=== PATIENT | female | born 1955 | race Caucasian/White ===

== ENCOUNTER 2024-06-03 15:45 | Emergency (ER) | payer OTHER, MEDICARE, SELFPAY ==
--- NOTE | ~2024-06-03 | XR_ITS ---
EXAMINATION: XR WRIST, LEFT CLINICAL INFORMATION: pain, fall COMPARISON: None available. TECHNIQUE: PA, lateral, oblique, and scaphoid views of the left wrist. FINDINGS: There is a transverse mildly comminuted fracture of the distal radial metaphysis, with minimal impaction and mild dorsal angulation. No significant displacement. No definite intra-articular involvement. There is a patellar styloid avulsion fracture which is minimally displaced. Carpal bones appear intact. There is dorsal tilt of the lunate incidentally noted. 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 There is soft tissue swelling about the wrist. XR/XR wrist LT w scaphoid IMPRESSION: 1. Transverse mildly comminuted fracture distal radial metaphysis, with minimal impaction and mild dorsal angulation. 2. Ulnar styloid avulsion fracture. Electronically signed by: Michael Fisher MD 06/03/2024 04:19 PM EDT
--- NOTE | ~2024-06-03 | XR_ITS ---
CLINICAL HISTORY: post reduction Three views of the left wrist. COMPARISON: XR left wrist dated 06/03/24 at 16:01 EDT FINDINGS: Interval placement of the left wrist in a cast. This obscures fine osseous details. Mildly-comminuted fracture of the distal left radial metaphysis. There is improved near anatomic alignment. No intra-articular extension identified. Nondisplaced ulnar styloid process fracture, stable. Carpal bones appear intact. D [id number] degenerative changes of the 1st CMC joint. Metacarpals and visualized portions of the phalanges appear intact. IMPRESSION: 1. Improved near anatomic alignment of mildly-comminuted fracture of the distal left radial metaphysis, now in cast. 2. Stable alignment of nondisplaced ulnar styloid process fracture. This document has been electronically signed by: Alex Adams MD on 06/03/2024 18:55:15
[2024-06-03 15:47] VITALS: BP 144/79; PULSE 86; RESP 20; TEMP 37.2; O2SAT 99; BMI 34.6
--- NOTE | 2024-06-03 15:48 | ED_ITS ---
HPI - Extremity Injury (Upper) General Chief Complaint: Extremity Injury, Upper Stated Complaint: L wrist injury, fall today Time Seen by Provider: 06/03/24 16:40 Source: patient Mode of arrival: ambulatory Limitations: no limitations History of Present Illness ED Provider: Ashanti Olmedo PA-C HPI narrative: Patient is a 69 year old assigned female at with a history of left hand dominance presenting to the emergency department today with left wrist pain. Patient states that she was working in her yard when she tripped and fell, catching herself with her left hand. Patient denies any loss of consciousness or head strike with the incident. Patient denies any dizziness, lightheadedness, abdominal pain, nausea, vomiting, fever, chills, blurry vision, double vision, loss of vision, chest pain, difficulty breathing, shortness of breath, back pain, night sweats, pain with urination, increased urinary frequency, increased urinary urgency, blood in her urine or stool, syncope or a near syncopal episode, bowel incontinence, bladder incontinence, or any other complaints at this time. MD complaint: injury to: left and wrist Onset (ago): hour(s) (1.5 prior to arrival) Handedness: left Place: home Context: fall Associated symptoms: denies other symptoms Related Data Allergies Allergy/AdvReac Type Severity Reaction Status Date / Time gluten Allergy Mild Diarrhea Verified 06/03/24 15:50 Review of Systems Constitutional: Constitutional: Reports no additional constitutional complaints, Denies chills, Denies fever(s) and Denies night sweats Eyes: Eyes: Reports no additional eye complaints, Denies blurry vision, Denies change in vision, Denies diplopia, Denies eye discharge, Denies loss of vision and Denies eye pain ENT: Denies dizziness Cardiovascular: Cardiovascular: Reports no additional cardiovascular complaints, Denies chest pain, Denies lightheadedness, Denies Loss of Consciousness and Denies dyspnea Respiratory: Respiratory: Reports no additional respiratory complaints and Denies dyspnea Gastrointestinal: Gastrointestinal: Reports no additional gastrointestinal complaints, Denies abdominal pain, Denies melena, Denies hematochezia, Denies change in bowel habits and Denies change in stool character Genitourinary: Genitourinary: Denies hematuria, Denies urinary frequency, Denies dysuria, Denies urinary incontinence, Denies urinary hesitancy and Denies urinary urgency Musculoskeletal: Musculoskeletal: Reports no additional musculoskeletal complaints, Denies numbness and Denies tingling Comments: left wrist pain Neurologic: Denies dizziness, Denies loss of vision, Denies numbness and Denies tingling Psychiatric: Psychiatric: Reports no additional psychiatric complaints Endocrine: Endocrine: Reports no additional endocrine complaints Hematologic/Lymphatic: Hematologic/Lymphatic: Reports no additional hematologic/lymphatic complaints Allergic/Immunologic: Allergic/Immunologic: Reports no additional allergic/immunologic complaints PMFSH Past Medical History Attestation statement: The following information was validated with the patient. Source: old records reviewed and nursing notes reviewed Social History Social History Alcohol intake: current Alcohol intake frequency: holidays/special occasions only Smoked in Last 30 Days: No Use of substances other than those prescribed or required for medical reasons: No Advance Directives: No Advance Directives Information Provided: Yes Physical Exam Vital Signs: Vital Signs: Last Vital Signs Temp 0 F L 06/03/24 18:44 Pulse 86 06/03/24 18:44 Resp 16 06/03/24 18:44 BP 147/89 H 06/03/24 18:44 Pulse Ox 99 06/03/24 18:44 O2 Del Method Room Air 06/03/24 18:44 BMI result Body Mass Index 34.6 Const: General: cooperative, no acute distress, alert and awake Nutritional Appearance: well nourished Orientation/consciousness: patient oriented x3 Limitations: no limitations HEENT: Head: Yes normal to inspection and Yes atraumatic Ears: hearing grossly normal bilaterally and external ears normal General nose exam: Normal external nose present, no nasal discharge noted and no epistaxis Face and sinus: Yes normal facial exam, No abrasion and No laceration Mouth: Normal oral and palatal mucosa present, no drooling and no muffled voice Eyes: General: appearance normal, both eyes and all related structures Periorbital: periorbital findings normal Eyelids: Yes eyelids normal Conjunctivae: conjunctivae normal Pupils: Equal, round and reactive pupils present EOM: EOMs intact bilaterally Neck: Neck: Yes normal visual inspection, Yes full ROM and Yes no lymphadenopathy Chest: Chest palpation & inspection: normal inspection of the chest Resp: Effort & Inspection: normal respiratory effort and able to speak in complete sentences GI: Inspection: Yes normal to inspection Neuro: General: patient oriented x3, moves all extremities and CN's II-XI intact bilaterally Cranial nerves: Yes Equal, round and reactive pupils present Cognition (Neuro): normal cognition Extrem: Other: decreased ROM of the left wrist secondary to pain obvious volar deformity of the left wrist General: Yes capillary refill normal Psych: Appearance: grossly normal Mental Status: mental status grossly normal Affect: normal affect Attitude: cooperative Thought process: Normal thought process present Thought content: Normal thought content present Insight: Good insight present (Psych) Course Course Course Narrative: This is an RME performed by Derrick Aguilera CNP: Additional HPI, ROS, PE not included below will be deferred to primary provider. Patient is a 6-year-old emergency department for evaluation after mechanical trip and fall resulting impact to the left arm, subsequently pain to the left wrist which she applied a home Velcro brace to. has continuous pain despite ice, Tylenol. Denies any head strike or loss of consciousness, no use of anticoagulants or known coagulation disorders. No focal neurological deficits. Right wrist with obvious deformity, 1+ radial pulse Plan: XR wrist Medical Decision Making Medical Decision Making MDM Narrative: Patient is a 69 year old assigned female at with a history of left hand dominance presenting to the emergency department today with left wrist pain. Patient's physical exam was as noted in the physical exam portion of this note. Patient's left wrist x-ray showed a transverse mildly comminuted fracture of the distal radial metaphysis with minimal impaction and mild dorsal angulation as we ll as an ulnar styloid fracture. I spoke with the orthopedic team who recommended reduction, splint, and outpatient follow up. I explained my physical exam findings as well as all test results to the patient. I answered all questions asked by the patient. Patient's wrist was reduced with manual manipulation during splinting, without incident. Patient tolerated well and the patient's PMS of the left upper extremity, including hand, was intact prior to and after reduction as well as sugar tong splint placement. Patient's splinting left upper extremity was then placed in a sling, without incident. Patient's post-reduction film confirmed successful anatomic reduction. I stressed the importance of the patient taking her medication as directed (either prescribed or as the over the counter packaging recommends). I stressed the importance of the patient following up with her primary care provider and the orthopedic team. I stressed the importance of the patient returning to the emergency department immediately if her symptoms were to worsen or if she were to develop any dizziness, shortness of breath, difficulty breathing, chest pain, blurry vision, loss of vision, nausea, vomiting, abdominal pain, fever, chills, back pain, or any other complaints. Patient verbalized agreement and understanding with this treatment plan and discharge. Differential Diagnosis Differential Diagnoses: The differential diagnosis associated with the presentation includes Wrist fracture Admission/Observation Consideration of admission/observation: Escalation of care including admission/observation considered Patient would have been admitted to the hospital had her work up had any findings where hospital admission was appropriate and her clinical presentation warranted hospital admission. Consult Healthcare Provider Management of the patient was discussed with: [employer]ter (spoke with the orthopedic team as noted in the MDM Rationale portion of this note. ) Independent Interpretation I performed an independent interpretation of an: Plain X-Ray Interpretation: My interpretation is in agreement with the radiologist's impression of these imaging studies. EXAMINATION: XR WRIST, LEFT CLINICAL INFORMATION: pain, fall COMPARISON: None available. TECHNIQUE: PA, lateral, oblique, and scaphoid views of the left wrist. FINDINGS: There is a transverse mildly comminuted fracture of the distal radial metaphysis, with minimal impaction and mild dorsal angulation. No significant displacement. No definite intra-articular involvement. There is a patellar styloid avulsion fracture which is minimally displaced. Carpal bones appear intact. There is dorsal tilt of the lunate incidentally noted. 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 There is soft tissue swelling about the wrist. XR/XR wrist LT w scaphoid IMPRESSION: 1. Transverse mildly comminuted fracture distal radial metaphysis, with minimal impaction and mild dorsal angulation. 2. Ulnar styloid avulsion fracture. Electronically signed by: Michael Fisher MD 06/03/2024 04:19 PM EDT Dictated By: Michael Fisher MD Signed By: Electronically signed by Michael Fisher MD 06/03/24 1619 CLINICAL HISTORY: post reduction Three views of the left wrist. COMPARISON: XR left wrist dated 06/03/24 at 16:01 EDT FINDINGS: Interval placement of the left wrist in a cast. This obscures fine osseous details. Mildly-comminuted fracture of the distal left radial metaphysis. There is improved near anatomic alignment. No intra-articular extension identified. Nondisplaced ulnar styloid process fracture, stable. Carpal bones appear intact. D [id number] degenerative changes of the 1st CMC joint. Metacarpals and visualized portions of the phalanges appear intact. IMPRESSION: 1. Improved near anatomic alignment of mildly-comminuted fracture of the distal left radial metaphysis, now in cast. 2. Stable alignment of nondisplaced ulnar styloid process fracture. This document has been electronically signed by: Alex Adams MD on 06/03/2024 18:55:15 Dictated By: Alex Adams MD Signed By: Electronically signed by Alex Adams MD 06/03/24 0466 Radiology Impression Discussion of test interpretation with radiology: I have reviewed the radiologist's reading. Procedures Orthopedic Fracture Reduction Fracture #1: Time Out Performed: Yes Side: left Analgesia: none Technique: direct manipulation Post Reduction X-rays Demonstrate: anatomical reduction Post-reduction neuro exam: intact Post-reduction vascular exam: intact Splint Applied: Yes Patient Tolerated Procedure: well Orthopedic Splinting/Casting Injury #1: Side: left Upper Extremity Injury Location: wrist Upper Extremity Immobilizer: sling/shoulder immobilizer and sugar tong splint Critical Care Time Critical Care Time Critical Care Time: Yes Total Critical Care Time: 48 Attestation: I spent 48 minutes of Critical Care Time with this patient. This does not include time spent on separately reported billable procedures. Discharge Plan Discharge Clinical Impression: Fracture of wrist Patient Disposition: Home, Self-Care Instructions: Wrist Fracture in Adults (ED) Additional Instructions: Do NOT get your splint wet. Do NOT remove your splint. If you have any change in sensation, movement, or color of your left fingers - you may loosen the outer FAROOQ wraps. If you find yourself loosening the FAROOQ wraps to the point of seeing the white splint material underneath - STOP and proceed to your closest Emergency Department, immediately. Follow up with your primary care provider and the orthopedic team. Return to the emergency department immediately if your symptoms worsen or if you develop any numbness, tingling, dizziness, shortness of breath, difficulty breathing, chest pain, blurry vision, loss of vision, nausea, vomiting, abdominal pain, fever, chills, back pain, or any other complaints. Please see the information below about our Patient Portal. If you are not yet enrolled in the [facility] Patient Portal, you will receive an enrollment email invitation following your visit to any [facility] setting. You may also self-enroll in the Patient Portal by visiting our website: [email or web address] The following information is required to access the Patient Portal: - Your [facility] Medical Record Number - Your personal home email address (must match what is in your electronic medical record, Registration staff can assist with this) - Name - Date of Capabilities of the Patient Portal: - Message some providers - View upcoming appointments - Access your health summary, medical history, and visit history - View current conditions and allergies - View procedure and lab results - View your medications, including guidelines, side effects, and precautions - Complete pre-appointment questionnaires requested by your provider - Ready summary reports of your office visits and procedures To access the Patient Portal Mobile Amanda, follow these directions: - Search [employer] in the Amanda Store or Google Play Store - Download the Amanda - Search for [facility] - Enter your login/password Referrals: [facility] Orthopedic Surgeons [Provider Group] (Call to establish and follow up with an orthopedic provider. ) Arianne Franco MD [Primary Care Provider] - Interventions: ED Discharge Assessment Last Done: 06/03/24 18:44 Discharge Date/Time: 06/03/24 18:45 Print Language: Portuguese
[2024-06-03 16:18] VITALS: BP 139/67; PULSE 82; RESP 16; TEMP 37; O2SAT 96
[2024-06-03 18:21] VITALS: BP 147/89; PULSE 86; RESP 16; O2SAT 99
[2024-06-03 18:44] VITALS: BP 147/89; PULSE 86; RESP 16; TEMP -17.7; TEMP 0; O2SAT 99
== END 2024-06-03 18:45 | disposition home or self-care (01) ==
PROVIDERS: Emergency Provider Emergency Medicine Emergency Medical Services; PCP Internal Medicine
DX: S52.502A Unspecified fracture of the lower end of left radius, initial encounter for closed fracture (principal); M25.532 Pain in left wrist; W01.0XXA Fall on same level from slipping, tripping and stumbling without subsequent striking against object, initial encounter; Y93.9 Activity, unspecified; Y92.007 Garden or yard of unspecified non-institutional (private) residence as the place of occurrence of the external cause; Y99.8 Other external cause status
CPT/HCPCS: 25605; 29125; 73110; 99283; 99284

== ENCOUNTER → 2024-06-03 15:49 | Outpatient (BNV) | payer OTHER, MEDICARE, SELFPAY | PROVIDERS: Emergency Provider Emergency Medicine Emergency Medical Services; PCP Internal Medicine; Visit Provider Radiology Diagnostic Radiology | DX: S52.612A Displaced fracture of left ulna styloid process, initial encounter for closed fracture (principal) | CPT/HCPCS: 73110 ==

== ENCOUNTER 2024-06-08 09:08 | Outpatient (REF) | payer MEDICARE, OTHER, SELFPAY ==
--- NOTE | ~2024-06-08 | XR_ITS ---
EXAMINATION: XR WRIST 3 OR MORE VIEWS LEFT HISTORY: M25.532 - Pain in left wrist COMPARISON: Comparison is made with the prior examination dated 06/03/2024. FINDINGS: Three casted views of the left wrist are submitted. The fiberglass cast obscures fine bony detail. Again seen is a transverse fracture of the distal radial metaphysis. The fracture line remains visible, although there is slight blurring of the fracture margins, consistent with healing. There is moderate osteoarthritis of the 1st carpometacarpal joint, with joint space narrowing and osteophyte formation. The soft tissues are unremarkable. XR/XR wrist LT min 3V IMPRESSION: Healing transverse fracture of the distal radial metaphysis. Electronically signed by: Mark Metz MD 06/09/2024 07:49 AM EDT
== END 2024-06-08 09:09 | disposition home or self-care (01) ==
LOC: HO.HOSX 09:08
PROVIDERS: Visit Provider Orthopaedic Surgery
DX: S52.502A Unspecified fracture of the lower end of left radius, initial encounter for closed fracture (principal); S52.615A Nondisplaced fracture of left ulna styloid process, initial encounter for closed fracture; W01.0XXA Fall on same level from slipping, tripping and stumbling without subsequent striking against object, initial encounter; Y93.89 Activity, other specified; Y92.007 Garden or yard of unspecified non-institutional (private) residence as the place of occurrence of the external cause; Y99.8 Other external cause status
CPT/HCPCS: 73110; 99202

== ENCOUNTER 2024-06-08 10:00 | Outpatient (AMB) | payer MEDICARE, OTHER, SELFPAY ==
--- NOTE | 2024-06-08 10:19 | MHC.OFFVIS ---
Vital Signs 06/08/24 10:25 Height 5 ft 5 in Weight 207 lb BMI 34.4 Intake Visit Reasons: FC- Left wrist fracture DOI 06/03/24 Intake Note: Kelly 69 yr old left hand dominant female present today with her Jonathan for her left wrist fracture from 06/03/24. Patient states that she was working in her yard when she tripped and fell, catching herself with her left hand. State she felt immediate pain. Seen in [facility] same day where xrays were taken, patient was reduced and then splinted due to wrist fracture. Currently state has no pain, numbness, tingling or locking of any fingers. Allergies gluten Allergy (Mild, Verified 06/08/24 10:23) Diarrhea HPI HPI FC- Left wrist fracture DOI 06/03/24: Details: Kelly is a 69 year old left hand dominant woman who presents for a left wrist fracture, S/P fall, DOI: 06/03/24. She fell while working in her yard. She was seen in the ED where her fracture was reduced and she was placed in a splint the same day. She is here with her . She says she is doing well, and denies any pain. She denies any numbness or tingling. She says her is having minimally invasive spine surgery on 06/15/24. 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 Review of Systems Const All systems reviewed & are unremarkable except as noted in HPI and below Physical Exam Vital Signs: BMI result Body Mass Index 34.4 Const General: cooperative, healthy appearing and no acute distress Orientation/consciousness: patient oriented x3 HEENT Head: Yes normocephalic and Yes atraumatic Eyes EOM: EOMs intact bilaterally Resp Effort & Inspection: normal respiratory effort and able to speak in complete sentences Cardio Jugular venous distension: no JVD Skin General skin exam: turgor normal Rashes: no rashes Neuro General: patient oriented x3 Extrem Other: Evaluation of Left Upper Extremity: The patient is alert, oriented, and in no acute distress Neuro: Median, Ulnar, Radial nerves motor and sensory intact and sensation is normal to the tips of all digits Vascular: Cap refill brisk ROM: She can bring her fingers closed to a fist and back into extension Skin: She was seen wearing her post-reduction splint today General: No Erythema or evidence of infection. No pain in her sholder or elbow Radiographs: 3 views of the left wrist were taken, viewed, and compared to post-reduction radiographs from 06/03/24 by me today in clinic. They show a transverse mildly comminuted distal radial metaphysis fracture, with ~7 degrees dorsal tilt on the lateral view, as well as an ulnar styloid fracture, with satisfactory fracture alignment. She has some basal joint arthritis Psych Appearance: grossly normal Affect: normal affect Attitude: cooperative Assessment & Plan Assessment & Plan (1) Distal radius fracture, left: Code(s): S52.502A - Unspecified fracture of the lower end of left radius, initial encounter for closed fracture Category: Medical (2) Closed nondisplaced fracture of styloid process of left ulna: Code(s): S52.615A - Nondisplaced fracture of left ulna styloid process, initial encounter for closed fracture Category: Medical Plan Assessment & Plan: 1. Left distal radius fracture, transverse comminuted 2. Left ulnar styloid fracture, S/P fall, DOI: 06/03/24 Reduced in the ED: 06/03/24 I educated her and her about this condition I discussed operative and non-operative treatment options The patient would like to proceed with surgery She should keep her wrist elevated at or above heart level when at rest The risks and benefits of operative treatment were discussed with the patient and the patient wishes to proceed with surgery. These risks include, but are not limited to risk of damage to blood vessels, nerves, tendons, infection, recurrence, incomplete relief of preoperative symptoms, persistent pain, possible need for further surgery and the risks associated with regional blocks and anesthesia. The plan is to take the patient to the operating room sometime on 06/09/24 for the following procedures: 1. Left distal radius ORIF, under general All of the preoperative paperwork including the consent was reviewed today. All the patient's questions were answered. The patient understands that they will be contacted by our operations support representative soon to schedule this procedure She denies Diabetes, blood thinners, asthma, heart, lung, kidney issues Scribed for Pati Brito MD by Tj Boo, medical technicians, on 06/08/24 at 10:35 AM, EST. Orders: Orders XR wrist LT min 3V Today M25.532 - Pain in left wrist Coding Level of Care Code New Pt Level 4 (27268) Diagnoses Distal radius fracture, left S52.502A Closed nondisplaced fracture of styloid process of left ulna S52.615A
[2024-06-08 10:25] VITALS: BMI 34.4
== END 2024-06-08 11:03 | disposition home or self-care (01) ==
LOC: HO.HOS 10:00
PROVIDERS: PCP Internal Medicine; Visit Provider Orthopaedic Surgery
DX: S52.502A Unspecified fracture of the lower end of left radius, initial encounter for closed fracture (principal); S52.615A Nondisplaced fracture of left ulna styloid process, initial encounter for closed fracture
CPT/HCPCS: 99204

== ENCOUNTER → 2024-06-08 10:02 | Outpatient (BNV) | payer OTHER, MEDICARE, SELFPAY | PROVIDERS: Visit Provider Radiology Diagnostic Radiology | DX: S52.502D Unspecified fracture of the lower end of left radius, subsequent encounter for closed fracture with routine healing (principal) | CPT/HCPCS: 73110 ==

== ENCOUNTER 2024-06-09 06:02 | Day surgery (SDC) | payer MEDICARE, OTHER, SELFPAY ==
--- OUTSIDE RECORDS SUMMARY | 2024-06-07 12:21 | XMS_ITS | Data Portability ---
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 Pt consented to procedure to remove polyp. BSE reviewed and recommended . Reviewed calcium needs, exercise, and prevention of osteoporosis . Periodic colonoscopy screening recommended . Reviewed normal menopause and menopausal symptoms . Mammogram recommended yearly . ctallon Not available 09/20/2013 07:57:36 10/27/2014 10/27/2014 She will try Astroglide, vibrator and dilators to help with sexual issues. She will have a DEXA with primary. Discussed current pap guidelines had pap and HPV 1 year ago that was normal. Reviewed normal menopause and menopausal symptoms. Reviewed cervical cancer screening recommendations appropriate for her age and Pap smear history. Reviewed calcium needs, exercise, and prevention of osteoporosis. Mammogram recommended yearly. Colonoscopy recommended every 10 years, or sooner if indicated based on her history. ctallon Not available 10/27/2014 16:06:45 11/06/2015 11/06/2015 Discussed curren t pap guidelines she will have pap testing in 1 year. She will have DEXA this year. Reviewed normal menopause and menopausal symptoms. Reviewed cervical cancer screening recommendations appropriate for her age and Pap smear history. Reviewed calcium needs, exercise, and prevention of osteoporosis. Mammogram recommended yearly. Colonoscopy recommended every 10 years, or sooner if indicated based on her history. ctallon Not available 11/06/2015 14:09:16 Plan of Treatment Reminders Order Date Submit Date Provider Last Modified By Organization Details Last Modified Time Details Appointments None recorded. Lab HPV DNA w/Pap 30yrs and older 2013 014 [facility] (Lab), [address] [place] [address], [address], 4 12:36:49 Pap smear 2013 014 [facility] (Lab), [address] [place] [address], [address], 4 12:29:48 pathology, surgical - cervical polyp 2013 014 [facility] (Lab), [address] [place] [address], [address], 4 17:36:15 Referral None recorded. Procedures None recorded. Surgeries None recorded. Imaging ultrasound, pelvic transvagina l - please check ovaries and endometrial lining cx polyp 2013 014 [facility] Not available 4 11:21:38 Medication Orders None recorded. Patient TargetsNo targets recorded. Patient InstructionsNo instructions recorded. Reason for Referral None Reported. 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 [place] [address] PAGE 1 RUN TIME: 1743 Speci men Inqui ry RUN USER: LINO PEÑA ----- ----- ----- ----- ----- ----- ----- ----- ----- ----- ----- ----- ----- ----- ----- ----- ----- ----- -- PATIE NT: YAIMA DUKE W 961 LOC: [facility] U #: [id number] AGE/S X: 58/F ROOM: RE09/[address]: Siomara Shell N.P. : 03/09 BED: DIS: STATU S: REG REF TLOC: ----- ----- ----- ----- ----- ----- ----- ----- ----- ----- ----- ----- ----- ----- ----- ----- ----- ----- -- SPEC #: [id number] RECD: 09/19-2 223 STATU S: SOUT REQ #: [id number] NASRA: 09/19- SUBM DR: Siomara Shell N.P. 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 CERVI X/END OCERV IX THOM jones #1 Enter ed: 09/26-1 621 THOM JONES TO REPOR T: HPV mRNA E6/E7 : NEGAT OMID (Not detec anneliese) This assay detec ts E6/E7 viral messe nger RNA (mRNA ) from 14 high- risk HPV types : (16,1 8,31, 33,35 ,39,4 5,51, 52,56 ,58,5 9,66, 68) This test was perfo rmed using the Aptim a HPV Assay ([employer]). Thom JORDAN CT( CP),G 09/27 5647 ----- ----- ----- ----- ----- ----- ----- ----- ----- ----- ----- ----- ----- ----- ----- ----- ----- ----- -- FINAL DIAGN OSIS NEGAT OMID FOR INTRA EPITH ELIAL LESIO N OR MALIG AMENA . Atrop hic quintana es prese nt. HPV DNA testi ng for high risk subty pes will be perfo rmed at the [facility] order jeferson sims and the resul t will be repor anneliese in an adden dum. Khurram Mott, CT( CP) Repor t Elect precious jason This Pap test was scree enrique using the compu teriz ed ThinP rep Imagi ng Syste m, then yolanda bowers and inter pretlencho d. JOBY JEAN PIERRE ON NEXT PAGE ----- ----- ----- ----- ----- ----- ----- ----- ----- ----- ----- ----- ----- ----- ----- ----- ----- ----- -- RUN DATE: 09/27 [place] [address] PAGE 2 RUN TIME: 1743 Speci kerline capone RUN USER: LINO PEÑA ----- ----- ----- ----- ----- ----- ----- ----- ----- ----- ----- ----- ----- ----- ----- ----- ----- ----- -- SPEC #: [id number] PATIE NT: YAIMA DUKE #[id number] (Cont inued ) ----- ----- ----- ----- ----- ----- ----- ----- ----- ----- ----- ----- ----- ----- ----- ----- ----- ----- -- CLINI GONZALO HISTO RY MENST RUAL STATU S : POST MENOP AUSAL PREVI OUS ABNOR MAL: NOT GIVEN CLINI GONZALO HISTO RY OTHER : HPV TESTI NG IF NEGAT OMID NAE PAP QUEST BETHE SDA ADEQU ACY:S ATISF ACTOR Y FOR INTER PRETA TION TRANS FORMA TION ZONE: Endoc vinay al/edie ansfo rmati on zone compo nent absen t ----- ----- ----- ----- ----- ----- ----- ----- ----- ----- ----- ----- ----- ----- ----- ----- ----- ----- -- Di ESPINOSA- DO ARACELY ANDERSEN 09/22 1227 ----- ----- ----- ----- ----- ----- ----- ----- ----- ----- ----- ----- ----- ----- ----- ----- ----- ----- -- END OF REPOR T Not Available [facility] [address], [place], [address], 09/27/2013 17:44:04 09/20/1909/19/2013 patho logy, surgi gonzalo surgical specimens See Satish ts ----- ----- ----- ----- ----- ----- ----- ----- ----- ----- ----- ----- ----- ----- ----- ----- ----- ----- -- RUN DATE: 09/23 [place] [address] PAGE 1 RUN TIME: 1735 Speci men Inqui ry RUN USER: MEDIT ECH ----- ----- ----- ----- ----- ----- ----- ----- ----- ----- ----- ----- ----- ----- ----- ----- ----- ----- -- PATIE NT: YAIMA DUKE W 961 LOC: [facility] U #: [id number] AGE/S X: 58/F ROOM: RE09/[address]: Siomara Shell N.P. : 03/09 BED: DIS: STATU S: REG REF TLOC: ----- ----- ----- ----- ----- ----- ----- ----- ----- ----- ----- ----- ----- ----- ----- ----- ----- ----- -- SPEC #: [id number] RECD: 09/19-2 211 STATU S: SOUT REQ #: [id number] NASRA: 09/19- SUBM DR: Siomara Shell N.P. ED: 09/19-2 212 SP TYPE: SURG OTHR DR: ORDER ED: H&E, NAE EXPED ITE, [facility] RECUT BLOCK , RECUT LEVEL S/3, GMUSM , GROSS ONLY (1) TISSU ES: 1. Cervi gonzalo - CERVI GONZALO POLYP FINAL DIAGN OSIS CERVI X, POLYP , BIOPS Y: - NON-D IAGNO STIC, SEE NOTE. NOTE: THE SPECI MEN DID NOT SURVI VE PROCE SSING . MUCIN OUS MATER IAL LESS THAN 0.1 CM WAS RECEI SILVINA. AN ATTEM PT WAS MADE TO PROCE SS THE SMALL FRAGM ENT OF MUCIN OUS MATER IAL; HOWEV ER, ON MICRO SCOPI C EVALU ATION NO TISSU E IS PRESE NT. LEVEL S WERE EXAMI ENRIQUE. PAIGE Arndt M.D. GROSS DESCR IPTIO N PREOP ERATI VE DIAGN OSIS: Mucus polyp of cervi x CLINI GONZALO HISTO RY: OPERA TION: SPECI MENS: Cervi gonzalo polyp POSTO PERAT OMID DIAGN OSIS: Recei silvina in forma luis fernando label ed cerv ical polyp is a large , friab le paper towel conta ining less than 0.1 x less than 0.1 x less than 0.[address] [place]-w nikos, trans lucen t soft tissu e fragm ents. Total ly submi tted in casse tte 1-1. The speci men may not survi ve proce ssing . JDB 2013 HISTO LOGY: TISSU E ID BLK PCS MARCELLE LEV PROCE DURE DISPO SITIO N ____ _ ___ ___ ___ _ Cervi gonzalo 1 1 1 ----- ----- ----- ----- ----- ----- ----- ----- ----- ----- ----- ----- ----- ----- ----- ----- ----- ----- -- SA RA Darshana Hammonds MD 09/23 1732 ----- ----- ----- ----- ----- ----- ----- ----- ----- ----- ----- ----- ----- ----- ----- ----- ----- ----- -- END OF REPOR T Not Available [facility] [address], [place], [address], 09/23/2013 17:36:13 09/20/19 14 09/26/2013 HPV DNA w/Pap 30yrs and older HPV 30 neg NEGATI VE negati ve normal HPV mRNA E6/E7 : NEGAT OMID (Not detec anneliese) This assay detec ts E6/E7 viral messe nger RNA (mRNA ) from 14 high- risk HPV types : (16,1 8,31, 33,35 ,39,4 5,51, 52,56 ,58,5 9,66, 68) This test was perfo rmed using the Aptim a HPV Assay ([employer]). Not Available [facility] [address], [place], [address], 09/26/2013 12:36:48 10/06/19 14 10/05/2013 ultra sound , pelvi c trans vagin al No observ ation record ed. [facility] [address], [place], [address], 10/27/2014 16:06:45 02/06/20 16 02/06/2016 DEXA, axial skele ton Henry white Name: RAIMUNDO DUKE Exam Date/T rosita: 1036 ------ ------ ------ ------ ------ ------ ------ ------ ------ ------ ------ ------ ------ -- Exam Number : [id number] RESPON KIERRA KAYE RETER: Marci Bailey M.D. - RIS ID: [id number] EXAMIN ATION: BONE DENSIT Y CENTRA L CLINIC AL INDICA TION: Osteop enia. Postme nopaus al female . TECHNI QUE: [employer] Energy X-Ray Absorp tiomet ry (DEXA techni que) was perfor med with measur ements of the lumbar spine and right hip. GENERA L INFORM ATION FOR BONE DENSIT OMETRY : BMD Report ing in Postme nopaus al Women and in Males age 50 and Older: The Z-scor e refers to standa rd deviat ions with refere nce to the age-ma tched mean. The T-scor e refers to standa rd deviat ions with refere nce to mean young adult (white female s age 20-29) peak bone mass. The World Health Organi zation (WHO) has define d low bone mass or osteop enia as betwee n 1-2.5 standa rd deviat ions below mean young adult peak bone mass (T-sco re) and osteop orosis as 2.5 or more standa rd deviat ions below that mean. BMD Report ing in Female s prior to menopa use and in Males Younge r then age 50: The Z-scor e is prefer red. A Z-scor e of -2.0 or lower is define d as below the expect ed range for age and a Z-scor e above -2.0 is withi n the expect ed range for age . COMPAR KRISTEN: 2011 FINDIN GS: L-Spin e: T-scor e -2.0 Z-scor e -0.5 This repres ents a 2.1% deteri oratio n Right Femora l Neck: BMD 0.672 g/cm T-scor e -1.6 Z-scor e -0.2 Right Hip: T-scor e -1.0 Z-scor e 0.1 This repres ents a 6.6% deteri oratio n IMPRES MICHAEL: Based on the WHO defini tion above, there is osteop enia of the lumbar spine and right hip. (See separa tely mailed data sheets ). Dictat ed: 2015 4:31 PM Report ID: [id number] Report ed By: MARCI BAILEY M.D. Yes [facility] (Radiology) [address], [place], [address], 02/14/2016 14:07:44 02/07/20 16 02/06/2016 bone densi ty No observ ation record ed. [facility] (Radiology) [address], [place], [address], 02/14/2016 14:07:44 Result Notes None recorded. Problems Name Problem SNOMED Code Status Onset Date Resolution Date Notes Provider Name and Address Organization Details Recorded Time Osteopenia 308472779 Active 2 doses Reclast Siomara Shaffer NP [address] [email or web address], [place], [address], [facility] 6 15:54:17 Malignant tumor of breast 861952983 Active DCIS mastectomy and Tamoxifen Siomara Shaffer NP [address] [place], [address], [facility] 6 11:54:46 Depressive disorder 97608526 Active therapist and meds Siomara Shaffer NP [address] [facility] [place], [address], [facility] 6 11:54:46 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 Procedures Surgical History Date Name Laterality Status Provider Name and Address Organization Details Recorded Time 09/20/19 14 Endocervical Polyp Removal completed Siomara Shaffer NP [address] [place], [address], [facility] 09/19/2013 15:20:39 02/23/19 05 Mastectomy completed Christine Pastrana [facility] 09/19/2013 11:41:09 12/08/19 04 Hysteroscopy ablation completed Not Available [facility] 01/07/2011 05:09:26 02/23/18 83 Section completed Christine Pastrana [facility] 09/19/2013 11:45:16 Imaging Results Imaging Date Name Status LastModified by Organization Details LastModified Time 10/05/2013 ultrasound, pelvic transvaginal completed [facility] (Imaging) [address] [place], [address], 10/27/2014 16:06:45 02/06/2016 DEXA, axial skeleton completed [facility] (Radiology) [address] [place], [address], 02/14/2016 14:07:44 02/06/2016 bone density completed [facility] (Radiology) [address] [place], [address], 02/14/2016 14:07:44 Procedure Notes None recorded. Medical Equipment None Reported. Allergies Allergen ID Allergen Name Allergen Category Reaction Reaction Severity Criticality Documentation Date Start Date Code Code System Note Provider Name and Address Organization Details Recorded Time 140227 wheat gluten extract food Not available Not available Not available 09/19/2013 31061 81 RxNorm Christinebetsy abraham [facility] 4 11:32:26 244872 Toradol medicatio n Not available Not available Not available 09/19/2013 58341 RxNorm Christine DotsonLyndon abraham [facility] 4 11:38:11 Medications Name Sig Start Date Stop Date Status Note LastModified by Organization Details LastModified Time sertraline active Not Available Not Av ailable Not Available Aleve active Not Available Not Availa ble Not Available Lipitor active Not Available Not Avail able Not Available Fish Oil active Not Available Not Avai lable Not Available lorazepam active Not Available Not Monica ilable Not Available Claritin active Not Available Not Avai lable Not Available Vitamin D active Not Available Not Monica ilable Not Available multivitamin active Not Available Not Available Not Available Baby Aspirin active Not Available Not Available Not Available B12 active Not Available Not Availa ble Not Available Vitals Date Recorded Body height Body mass index (BMI) Body weight Heart rate Systolic blood pressure Diastolic blood pressure Provider Name and Address Organization Details Last Updated DateTime 4 170.18 cm 24 kg/m2 63949.0 41100 g 73 /min 108 mm[Hg] 76 mm[Hg] Christine roy [facility] 4 11:45:54 Date Recorded Body height Body mass index (BMI) Body weight Heart rate Systolic blood pressure Diastolic blood pressure Provider Name and Address Organization Details Last Updated DateTime 5 170.18 cm 25 kg/m2 27001.9 95112 g 91 /min 121 mm[Hg] 79 mm[Hg] Christine roy [facility] 5 15:34:23 Date Recorded Body height Body weight Body mass index (BMI) Heart rate Systolic blood pressure Diastolic blood pressure Provider Name and Address Organization Details Last Updated DateTime 6 170.18 cm 40969.5 67620 g 25.1 kg/m2 76 /min 129 mm[Hg] 84 mm[Hg] Jayde Adamson [facility] 6 11:22:00 Social History Question Answer Notes LastModified by Organizat ion Details LastModified Time Tobacco Smoking Status Never Smoker Christine abraham [facility] 09/19/2013 11:33:54 What Is Your Level Of Alcohol Consumption? Occasional Information not available 09/19/2013 What Type Of Diet Are You Following? GLUTENFREE Information not available 09/19/2013 Which Illicit Or Recreational Drugs Have You Used? 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 No Information not available 09/19/2013 Exercise Yes Gym 2-3 X A Week With Weight Lifting Information not available 09/19/2013 Marital Status Informa tion not available 09/19/2013 Seat Belts Used Routinely Yes Information not available 09/19/2013 Are You Sexually Active? No Information not available 11/06/2015 Do You Have Symptoms Associated With Zika Virus (fever, Rash, Joint Pain, Or Conjunctivitis) ? No Information not available 11/06/2015 Have You Recently (within The Last 12 Weeks, Or During A Current ) Traveled To Or Lived In A Zika-affected Area? No Information not available 11/06/2015 Sex: Unknown Functional Status None recorded. Mental Status None recorded. Family History Relationship Description Onset Age of this Age Resolved Age Notes LastModified by Organization Details LastModified Time Mother Malignant tumor of breast 39 ctallon Not available 2015 14:10:25 Maternal Grandmother Malignant tumor of breast 60 ctallon Not available 2015 14:10:25 Sister Malignant tumor of breast 50 ctallon Not available 2015 14:10:25 Paternal Aunt Malignant tumor of colon ctallon Not available 2015 14:10:25 Father Leukemia (morphologic abnormality) ctallon Not available 14:10:25 Daughter Spina bifida ctallon Not avai lable 11/06/2015 14:10:25 Notes:brother is healthy Medical History Condition Response Diabetes N Other N Thyroid Disease N High Blood Pressure N Lung Disorder or Asthma N Hyperlipidemia N Cancer Y Kidney or Bladder Problems N Cardiac Disease N Anemia or Blood Disorder N GI Disorders N Neurologic Disease N None Reported N Psychiatric Disease N Osteoporosis N Thrombophilias N Gynecological History Statement/Question Response Date of Last Mammogram 10/15/2015 Date of Last Bone Density Test 2 Date of Last Colonoscopy 09/12/2014 Date of Last Pap 09/19/2013 Menopause Y Abnormal Pap None Obstetrics History GPAL:G 4 P 3 1 0 3 Type Value Full Term 3 Premature 1 Living 3 Total 4 Past Encounters Encounter ID Performer Location Encounter Start Date Encounter Closed Date Diagnosis/Indication Diagnosis SNOMED-CT Code Diagnosis ICD10 Code Diagnosis Note [id number] [address] [place] [address] 10/18/2003 11:36:17 10/18/2003 12:45:[id number] [address] [place] [address] 11/20/2003 15:25:00 11/20/2003 16:18:04 [id number] [facility] [address] [place] [address] 12/08/2003 00:00:00 03/19/2010 03:30:[id number] [address] [place] [address] 03/14/2004 07:59:30 03/14/2004 07:59:43 [id number] [facility] [address] [place] [address] 09/19/2013 11:04:09 09/19/2013 14:21:00 Gynecologic examination 55574016 Polyp of cervix 02325108 Abdominal bloating 052281058 [id number] [facility] [address] [place] [address] 10/27/2014 15:26:17 10/31/2014 08:57:55 Gynecologic examination 04654056 Screening for malignant neoplasm of rectum 329753270 Malignant tumor of breast 353077041 [id number] Siomara Shaffer NP [facility] [address] [place] [address] 11/06/2015 11:18:14 11/06/2015 14:21:59 Gynecologic examination 78448763 Z01.419 Screening for malignant neoplasm of rectum 410870710 Z12.12 Health Concerns Section Related Observation LastModified by Organization Detai ls LastModified Time None Recorded Concern Status LastModified by Organization Details LastModified Time None Recorded Advance Directives Directive None Recorded Payers Encounter Date Sequence Insurance Name Policy Number Policy Pinto Covered Member ID Pinto Member ID Guarantor Name 03/13/2004 1 [place] [id number] Jonathan Duke [id number] Kelly Duke 09/19/2013 1 [facility] Kelly Duke [id number] Kelly Duke 10/27/2014 1 [facility] Kelly Duke [id number] Kelly Duke 11/06/2015 1 [facility] Kelly Duke [id number] Kelly Lijek Notes Date Note Type Note Provider Name and Address Organization Details Recorded Time 09/19/2013 text/html 1 st visit to ou r office; 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; menopausal no bleeding or spotting occasional hot flashes; not sexually active for many years since it was uncomfortable and low libido- also has low libido; s/p mastectomy on right breast DCIS was on Tamoxifen for 5 years; no hx of abnormal pap testing; was negative BRAC ; P3 1 child spina bifida; had DEXA and had 2 RX of Reclast stopped due to TMJ 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 or 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, denies vaginal d/c or itching; - no dysuria, GI- nrm pattern and had colonoscopy; Breast - no lump or nipple d/c followed by oncology Siomara Shaffer NP [address] [place], [address], [facility] 09/20/2013 07:57:44 10/27/2014 text/html Annual HPI PMHx - no major illness, hospitalizations; Family Hx- no changes; 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 or 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, would like to try being more interested in sex; is going on antidepressants, they have not been sexually active for many years; - no dysuria, GI- nrm pattern and had negative colonoscopy this year, Breasts- no problem being followed by oncologist; had DEXA many years ago Siomara Shaffer NP [address] [place], [address], [facility] 10/27/2014 16:10:39 11/06/2015 text/html Annual HPI PMHx - having problems with TMJ; Family Hx- no changes; 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 or 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
--- NOTE | 2024-06-08 12:09 | HO.ANESPROP2 ---
Documented by User: Katheryn Martin NP 06/08/24 12:10 HPI - Anesthesia Eval Consult details Narrative: 69yo F for Left Radius Distal Fracture ORIF PMFSH Active Problems Active Problems: All Active Problems Closed nondisplaced fracture of styloid process of left ulna (Acute) Distal radius fracture, left (Acute) Past Medical History Medical History Breast cancer History of depression Elevated cholesterol Surgical History Surgical History Hx of colonoscopy H/O section H/O right mastectomy History of total left knee replacement Social History Social History Alcohol intake: current Alcohol intake frequency: holidays/special occasions only Patient Tobacco Use Status: Former Tobacco user Have you been hit, kicked, punched, or otherwise hurt by someone within the past year? 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 Meds Allergies Allergy/AdvReac Type Severity Reaction Status Date / Time gluten Allergy Mild Diarrhea Verified 06/09/24 06:37 Home Medications ?Medication ?Instructions ?Recorded ?Confirmed ?Last Taken ?Type atorvastatin 10 mg tablet 10 mg PO DAILY 06/08/24 06/09/24 06/09/24 History brimonidine 0.1 % eye drops drp ophthalmic (eye) 06/08/24 Unknown History (Alphagan P) finasteride 5 mg tablet 5 mg PO DAILY 06/08/24 Unknown History fluocinonide 0.05 % topical topical 06/08/24 Unknown History solution lorazepam 0.5 mg tablet mg PO 06/08/24 Unknown History pimecrolimus 1 % topical cream appl topical 06/08/24 Unknown History sertraline 50 mg tablet mg PO 06/08/24 06/09/24 History timolol maleate 0.5 % eye drops drp ophthalmic (eye) 06/08/24 Unknown History Assessment and Plan Assessment Anesthesia Assessment: Chart Reviewed Documented by User: Lenore Daniel MD 06/09/24 08:36 [facility] Past Medical History Medical History Breast cancer History of depression Elevated cholesterol Family History Family history of problems with anesthesia: No Surgical History Surgical History Hx of colonoscopy H/O section H/O right mastectomy History of total left knee replacement History of Problems with Anesthesia: No Social History Social History Alcohol intake: current Alcohol intake frequency: holidays/special occasions only Patient Tobacco Use Status: Former Tobacco user Have you been hit, kicked, punched, or otherwise hurt by someone within the past year? 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 Meds Allergies Allergy/AdvReac Type Severity Reaction Status Date / Time gluten Allergy Mild Diarrhea Verified 06/09/24 06:37 Home Medications ?Medication ?Instructions ?Recorded ?Confirmed ?Last Taken ?Type atorvastatin 10 mg tablet 10 mg PO DAILY 06/08/24 06/09/24 06/09/24 History brimonidine 0.1 % eye drops drp ophthalmic (eye) 06/08/24 Unknown History (Alphagan P) finasteride 5 mg tablet 5 mg PO DAILY 06/08/24 Unknown History fluocinonide 0.05 % topical topical 06/08/24 Unknown History solution lorazepam 0.5 mg tablet mg PO 06/08/24 Unknown History pimecrolimus 1 % topical cream appl topical 06/08/24 Unknown History sertraline 50 mg tablet mg PO 06/08/24 06/09/24 History timolol maleate 0.5 % eye drops drp ophthalmic (eye) 06/08/24 Unknown History Exam Airway Mallampati Class: III TM Dist: >3cm Neck ROM: Limited Heart: RRR Lungs: CTA Assessment and Plan Assessment Anesthesia Assessment: Anesthesia Plan Discussed Final Anesthetic Review Family History of Problems with Anesthesia: No History of Problems with Anesthesia: No NPO: Yes ASA Class: III Final Preanesthetic Review: No Changes in Pt Med Stat, Meds/Allgs Chart Reviewed, Consent Obtained/Reviewed and Anes Risks/Benef Reviewed Patient Risk: Intermediate Procedure Risk: Intermediate Anesthetic Plan Anesthetic Plan: GA, Regional Block and Agree w/ Assess. and Plan Disposition: Standard PACU
[2024-06-09] VITALS (8 sets, daily range): BP systolic 126–152; BP diastolic 77–82; PULSE 67–81; RESP 16–18; TEMP 36.3–36.6; O2SAT 93–100; BMI 34.5
--- NOTE | ~2024-06-09 | FL_ITS ---
EXAMINATION: FL GUIDANCE ONLY HISTORY: left distal radius ORIF COMPARISON: Correlation is made with plain films of the left wrist dated 06/08/2024. TECHNIQUE: Fluoroscopy time: 14 seconds. Cumulative Dose: 0.1019 mGy. DAP: 0.234 mGym2 Images: 8. FINDINGS: Images demonstrate internal fixation of the previously seen fracture of the distal radius with a sideplate and multiple orthopedic screws. FL/FL guidance in OR IMPRESSION: Fluoroscopy during procedure. Please see procedure report for additional information. Electronically signed by: Mark Metz MD 06/09/2024 01:06 PM EDT
[2024-06-09] MEDS: Lactated Ringers 1,000 ML 100 ML IVCONT (06:25)
--- NOTE | 2024-06-09 07:43 | MHC.SHP ---
Pre-Procedural Eval Section A - 24 Hr Update-Section A only Date of Service: 06/09/24 The patient is an INPATIENT: No Changes since office visit: No Cold of Flu in the past 2 weeks, No New Medical Problems, No Changes in Medication and No Patient answered all questions The patient has been examined within 24 hours of the surgical procedure. The History & Physical has been completed within 30 days and I have reviewed it.: Yes Section B - Complete if H&P > 30 days Chief Complaint: Unspecified fracture of the lower end of left radi Allergies: Allergies Allergy/AdvReac Type Severity Reaction Status Date / Time gluten Allergy Mild Diarrhea Verified 06/09/24 06:37 Plan I have reviewed the history and physical and performed a pertinent physical examination on my patient. No changes have occurred unless specified. Time Spent With Patient Time: Total time managing care of this patient today ____ minutes.
--- NOTE | 2024-06-09 07:43 | W.PM.OPN ---
Operative Note Operative Note Date of Service: 06/09/24 Narrative: Operative Note Narrative: Preop diagnosis: 1. Left Distal radius fracture Postop diagnosis: Same Procedure: 1. Left Distal radius fracture open reduction internal fixation, extra-articular Surgeon: Pati Brito MD Sales Technician Home Theater: [employer] Anesthesia: General anesthesia plus regional block Findings: Distal radius fracture, metaphyseal Implants: A 3 hole Accu Med volar locking plate, with 4x 2.3 mm locking pegs/screws, and 3 3.5 mm cortical screws Tourniquet time: 44 minutes EBL: 5.0 ml Specimen: None Drains: None Complications: None Disposition: Brought to the recovery room in stable condition Plan: Follow-up in 10-14 days for wound check, suture removal and postop radiographs The patient will be placed in a volar wrist splint. Encouraged no lifting of anything heavier than a cell phone. Please encourage active and passive range of motion of the digits. Follow-up at 4-5 weeks postop for repeat radiographs. Indications: The patient is a 69 year old woman with left distal radius fracture . The risks and benefits of operative treatment, including but not limited to risk of damage to blood vessels, nerves, tendons, infection, recurrence, persistent pain or numbness, incomplete resolution of preoperative symptoms, or need for further surgery were discussed with the patient and they wished to proceed with surgery. Procedure: Once consent was obtained patient was brought back to the operating suite and placed in the operating table in a supine position. A regional block was performed by the anesthesia team. Perioperative antibiotics and anesthesia was administered by the anesthesia team. A tourniquet was applied to the proximal aspect of the left upper extremity and the limb was prepped and draped in a standard surgical fashion. The limb was elevated exsanguinated with Esmarch bandage and the tourniquet inflated to 250 mm of mercury for a total tourniquet time of 44 minutes. The FluoroScan was used throughout the case to assess our reduction, and facilitate implant placement. A gentle closed reduction was 1st performed on the patient's left distal radius fracture. Was assessed radiographically before proceeding with the reduction internal fixation. I then made an 8 cm longitudinal incision over the distal aspect of the flexor carpi radialis tendon. The incision was made through the skin to the subcutaneous tissue using a 15. Blade. Then carefully dissected down to flexor carpi radialis tendon she tenotomy scissors. The FCR tendon sheath was then incised longitudinally using tenotomy scissors under direct visualization. The FCR tendon was then retracted ulnarly. I then made a longitudinal incision in the volar forearm fascia through the floor of FCR tendon sheath using tenotomy scissors under direct visualization. I identified the interval between the radial artery and the flexor tendons. This interval was developed further with my index finger, releasing some of the muscular fibers of the flexor pollicis longus. A dull weatlander retractor was then placed. I then created an ulnarly based flap of the pronator quadratus by releasing the radial and distal edges using a 15. Blade. A Thompson elevator was used to elevate the pronator quadratus from the volar surface of the distal radius. This then revealed to us our distal radius fracture. An open reduction was then performed on our distal radius fracture. I then placed a short 3 hole Accu Med volar locking plate on the volar surface of the distal radius. I placed a single K-wire through the distal aspect of the plate and into the distal radius. This was assessed using fluoroscopic images. I was satisfied with the placement of our plate. I then placed 4x 2.3 mm locking screws/pegs in the distal aspect of the plate and distal radius by 1st drilling bicortically with a 2.0 mm drill bit, measuring with a depth gauge, and placing the appropriate length locking screws/pegs. The placement of our plate and screws was then assessed again using fluoroscopic images. The once satisfied with the placement of the volar locking plate and screws on the distal aspect of the distal radius, the plate was then reduced to the shaft of the radius. I then placed 3 X 3.5 mm cortical screws to the proximal aspect of the plate and into the shaft of the radius. This was done by 1st drilling bicortically with a 2.8 mm drill bit, measuring with a depth gauge, and placing the appropriate length screw. Final radiographs were then obtained. The DRUJ was assessed and found to be stable on exam. I was satisfied with our reduction and placement of all implants. At this point the wound was irrigated with normal saline. The pronator quadratus was reduced back over the volar locking plate using some 3-0 Vicryl suture material. The tourniquet was then deflated and hemostasis was obtained with a brief period of local pressure and bipolar monopolar electrocautery. The subcutaneous layer was then reapproximated using some 4-0 Vicryl suture, and the skin edges were reapproximated using some 5 0 Prolene suture. The wound was then infiltrated with some 1% lidocaine with epinephrine postop pain control. A sterile dressing and a short dorsal splint allowing for active flexion and extension of the digits was applied. The patient appears to have tolerated the procedure well and with no complications. All digits were well vascularized conclusion of the case.
[2024-06-09] MEDS: ceFAZolin Sodium/Dextrose,Iso 2 GM/50 ML PIGGYBACK IV (07:55)
[2024-06-09] MEDS: Acetaminophen 1,000 MG/100 ML PIGGYBACK 400 MG IV (08:12)
[2024-06-09] MEDS: ondansetron HCL 4 MG/2 ML VIAL IVPUSH (10:02)
== END 2024-06-09 11:21 | disposition home or self-care (01) ==
PROVIDERS: PCP Internal Medicine; Visit Provider Orthopaedic Surgery
PROC: (CPT 25607; principal; 2024-06-09 07:30)
DX: S52.502A Unspecified fracture of the lower end of left radius, initial encounter for closed fracture (principal); S52.615A Nondisplaced fracture of left ulna styloid process, initial encounter for closed fracture; W01.0XXA Fall on same level from slipping, tripping and stumbling without subsequent striking against object, initial encounter; Y93.H2 Activity, gardening and landscaping; Y92.017 Garden or yard in single-family (private) house as the place of occurrence of the external cause; Y99.9 Unspecified external cause status; Z85.3 Personal history of malignant neoplasm of breast; Z90.11 Acquired absence of right breast and nipple; Z96.652 Presence of left artificial knee joint; Z91.09 Other allergy status, other than to drugs and biological substances
CPT/HCPCS: 25607; C1713; J0131; J0665; J0690; J1100; J2003; J2004; J2250; J2405; J2704; J2795

== ENCOUNTER → 2024-06-09 06:02 | Outpatient (BNV) | payer MEDICARE, OTHER, SELFPAY | PROVIDERS: PCP Internal Medicine; Visit Provider Orthopaedic Surgery | DX: S52.552A Other extraarticular fracture of lower end of left radius, initial encounter for closed fracture (principal) | CPT/HCPCS: 25607 ==

== ENCOUNTER 2024-06-22 12:45 | Outpatient (REF) | payer MEDICARE, OTHER, SELFPAY ==
--- NOTE | ~2024-06-22 | XR_ITS ---
CLINICAL HISTORY: M25.532 - Pain in left wrist 3 view left wrist Comparison: 06/03/2024 Findings: Surgical hardware is noted overlying the healing distal radial fracture There is an ununited ulnar styloid process fracture. There are changes of osteoarthritis in the 1st carpometacarpal joint. No other radiopaque foreign body. IMPRESSION: 1. Healing distal radial fracture This document has been electronically signed by: Christian Garcia MD on 06/24/2024 09:02:04
== END 2024-06-22 12:46 | disposition home or self-care (01) ==
LOC: HO.HOSX 12:45
PROVIDERS: Visit Provider Orthopaedic Surgery
DX: M25.532 Pain in left wrist (principal); S52.502D Unspecified fracture of the lower end of left radius, subsequent encounter for closed fracture with routine healing
CPT/HCPCS: 73110

== ENCOUNTER 2024-06-22 15:11 | Outpatient (AMB) | payer OTHER, MEDICARE, SELFPAY ==
--- NOTE | 2024-06-22 15:36 | A.OFFVIS_ITS ---
Intake Visit Reasons: PO LT distal radius ORIF 06/09/24 AR Intake Note: Kelly 69 yr old female presents today for her P/O visit for her left distal radius ORIF that was done on 06/09/[address] Brito. States she has soreness and is doing well over all. Allergies gluten Allergy (Mild, Verified 06/22/24 15:53) Diarrhea HPI HPI PO LT distal radius ORIF 06/09/24 AR: Details: Kelly is a 69 year old left hand dominant woman who returns S/P left distal radius ORIF, DOS: 06/09/24. She also has an ulnar styloid fracture, S/P fall, DOI: 06/03/24. She fell while working in her yard. She says she is doing well, with some overall soreness. She reports some mild tingling in her thumb, which began following her surgery. Her other fingers feel normal She complains of difficulty swallowing following her surgery, particularly solid foods. She says this has improved slightly since her surgery but she continues to have difficulty. She says her had minimally invasive spine surgery on 06/15/24. 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 Sutures removed and Steri-Strips applied She can make a fist and extend all her digits Full pronation Supination: ~65 degrees Sensation is intact, except for some mild intermittent tingling to the tip of her thumb Cap refill is brisk Radiographs: 3 views of the elft wrist were taken and viewed by me today in clinic. They show a distal radial metaphysis fracture, with satisfactory fracture alignment, as well as an ulnar styloid fracture, with satisfactory fracture alignment. She has some basal joint arthritis Psych Appearance: grossly normal Affect: normal affect Attitude: cooperative Assessment & Plan Assessment & Plan (1) Distal radius fracture, left: Code(s): S52.502A - Unspecified fracture of the lower end of left radius, initial encounter for closed fracture Category: Medical (2) Closed nondisplaced fracture of styloid process of left ulna: Code(s): S52.615A - Nondisplaced fracture of left ulna styloid process, initial encounter for closed fracture Category: Medical (3) Numbness and tingling in left hand: Code(s): R20.0 - Anesthesia of skin; R20.2 - Paresthesia of skin Category: Medical Plan Assessment & Plan: 1. Left distal radius fracture, S/P ORIF 2. Left ulnar styloid fracture, S/P fall, DOI: 06/03/24 Reduced in the ED: 06/03/24 DOS: 06/09/24 3. Left hand tingling Primarily in the thumb Symptoms began following her ORIF The patient appears to be doing well post-operatively I educated her and her about the post-operative course In regards to her sensation, we will see how this improves over time. She may benefit from a possible carpal tunnel release in the futue if her symptoms persist or worsen. Confirm with NCS. She was fitted for a velcro wrist splint, to be worn like a cast except for showering for the next 3 weeks I explained the signs and symptoms of infection I discussed activity modifications, she is to lift nothing heavier than a cellphone for the next 6 weeks. She will avoid any heavy impact activities or activities prone to falling. She will perform gentle finger ROM exercises at home, and gentle pronosupination She should avoid any underwater activities for the next 5 days She will follow up in 3-4 weeks, with X-rays, 3V L wrist, OOP Scribed for Pati Brito MD by Tj Boo, rn medical inpatient services, on 06/22/24 at 3:50 PM, EST. Orders: Orders XR wrist LT min 3V Today M25.532 - Pain in left wrist Scribe Plan - Not visible on output: Scribed for Pati Brito MD by Tj Boo, rn medical inpatient services, on [ ] at [ ], EST. Coding Level of Care Code Global (50500) Diagnoses Distal radius fracture, left S52.502A Closed nondisplaced fracture of styloid process of left ulna S52.615A Numbness and tingling in left hand R20.0; R20.2
== END 2024-06-22 16:18 | disposition home or self-care (01) ==
LOC: HO.HOS 15:12
PROVIDERS: PCP Internal Medicine; Visit Provider Orthopaedic Surgery
DX: S52.502A Unspecified fracture of the lower end of left radius, initial encounter for closed fracture (principal); S52.615A Nondisplaced fracture of left ulna styloid process, initial encounter for closed fracture; R20.0 Anesthesia of skin; R20.2 Paresthesia of skin
CPT/HCPCS: 99024

== ENCOUNTER → 2024-06-22 15:15 | Outpatient (BNV) | payer MEDICARE, OTHER, SELFPAY | PROVIDERS: Visit Provider Specialist | DX: S52.592D Other fractures of lower end of left radius, subsequent encounter for closed fracture with routine healing (principal) | CPT/HCPCS: 73110 ==

== ENCOUNTER 2024-07-12 08:40 | Outpatient (REF) | payer MEDICARE, OTHER, SELFPAY ==
--- NOTE | ~2024-07-12 | XR_ITS ---
EXAMINATION: XR WRIST, LEFT CLINICAL INFORMATION: M25.532 - Pain in left wrist COMPARISON: June 22, 2024. TECHNIQUE: PA, lateral, and oblique views of the left wrist. FINDINGS: There is a metallic plate in the distal diaphysis metaphysis and appendix is of the radius placed along the volar aspect. There is loosening within the radial aspect of the prosthetic component near the distal). Old traumatic deformity styloid processes of the ulna. Osteopenia versus osteoporosis. Degenerative changes of the carpometacarpal joints. 2 mm calcification in the dorsal aspect of the wrist likely related to triquetrum. XR/XR wrist LT min 3V IMPRESSION: Loosening along the prosthesis components of the distal radius epiphysis. Electronically signed by: Bravo Layton MD 07/12/2024 01:42 PM EDT
--- OUTSIDE RECORDS SUMMARY | 2024-07-14 08:51 | XMS_ITS | Data Portability ---
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 Procedures None [...] LastModifiedTime 09/20/19 14 09/19/2013 Pap smear cytology cardiovascular operating room nurse See Satish ts ----- ----- ----- ----- ----- ----- ----- ----- ----- ----- ----- ----- ----- ----- ----- ----- ----- ----- -- RUN DATE: 09/27 [facility] [place] [address] PAGE 1 RUN TIME: 1743 Speci men Inqui ry RUN USER: LINO PEÑA ----- ----- ----- ----- ----- ----- ----- ----- ----- ----- ----- ----- ----- ----- ----- ----- ----- ----- -- PATIE NT: YAIMA DUKE W 961 LOC: [place] [place] U #: [id number] AGE/S X: 58/F ROOM: RE09/[address]: Siomara Shell N.P. : 03/09 BED: DIS: STATU S: REG REF TLOC: ----- ----- ----- ----- ----- ----- ----- ----- ----- ----- ----- ----- ----- ----- ----- ----- ----- ----- -- SPEC #: [id number] RECD: 09/19-2 223 STATU S: SOUT REQ #: [id number] NASRA: 09/19- SUBM DR: Siomara Shell N.P. 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 Thom JORDAN CT( CP),G 09/27 0977 ----- ----- ----- ----- ----- ----- ----- ----- ----- ----- ----- ----- ----- ----- ----- ----- ----- ----- -- FINAL DIAGN OSIS NEGAT OMID FOR INTRA EPITH ELIAL LESIO N OR MALIG AMENA . Atrop hic [facility] es prese nt. HPV DNA testi ng for high risk subty pes will be perfo rmed at the [facility] order jeferson sims and the [...] RUN DATE: 09/27 [place] [address] PAGE 2 RUN TIME: 1743 Speci kerline capone RUN USER: LINO PEÑA ----- ----- ----- ----- ----- ----- ----- ----- ----- ----- ----- ----- ----- ----- ----- ----- ----- ----- -- SPEC #: [id number] PATIE NT: YAIMA DUKE #[id number] (Cont inued ) ----- ----- ----- ----- [...] -- END OF REPOR T Not Available [facility] [address], [place], [address], 09/27/2013 17:44:04 09/20/1909/19/2013 patho logy, surgi gonzalo surgical specimens See Satish ts ----- ----- ----- ----- ----- ----- ----- ----- ----- ----- ----- ----- ----- ----- ----- ----- ----- ----- -- RUN DATE: 09/23 [place] [address] PAGE 1 RUN TIME: 1735 Speci men Inqui ry RUN USER: MEDIT ECH ----- ----- ----- ----- ----- ----- ----- ----- ----- ----- ----- ----- ----- ----- ----- ----- ----- ----- -- PATIE NT: YAIMA DUKE W 961 LOC: [place] [place] U #: [id number] AGE/S X: 58/F ROOM: RE09/[address]: Siomara Shell N.P. : 03/09 BED: DIS: STATU S: REG REF TLOC: ----- ----- ----- ----- ----- ----- ----- ----- ----- ----- ----- ----- ----- ----- ----- ----- ----- ----- -- SPEC #: [id number] RECD: 09/19-2 211 STATU S: SOUT REQ #: [id number] NASRA: 09/19- SUBM DR: Siomara Shell N.P. ED: 09/19-2 212 SP TYPE: SURG OTHR DR: ORDER ED: H&E, NAE EXPED ITE, [facility] RECUT BLOCK , RECUT LEVEL [...] -- END OF REPOR T Not Available [facility] [address], [place], [address], 09/23/2013 17:36:13 09/20/19 14 09/26/2013 HPV DNA [...] rmed using the Aptim a HPV Assay ([employer]). Not Available [facility] [address], [place], [address], 09/26/2013 12:36:48 10/06/19 14 10/05/2013 ultra sound , pelvi c trans vagin al No observ ation record ed. [facility] [address], [place], [address], 10/27/2014 16:06:45 02/06/20 16 02/06/2016 DEXA, axial skele ton Henry white Name: RAIMUNDO DUKE Exam Date/T rosita: 1036 ------ ------ ------ ------ ------ ------ ------ ------ ------ ------ ------ ------ ------ -- Exam Number : [id number] RESPON KIERRA KAYE RETER: Marci Bailey [...] Dictat ed: 2015 4:31 PM Report ID: [id number] Report ed By: MARCI BAILEY M.D. Yes [facility] (Radiology) [address], [place], [address], 02/14/2016 14:07:44 02/07/20 16 02/06/2016 bone densi ty No observ ation record ed. [facility] (Radiology) [address], [place], [address], 02/14/2016 14:07:44 Result Notes None recorded. Problems Name Problem SNOMED Code Status Onset Date Resolution Date Notes Provider Name and Address Organization Details Recorded Time Osteopenia 020739015 Active 2 doses Reclast Siomara Shaffer NP 1 [facility] [place], [address], [facility] 6 15:54:17 Malignant tumor of breast 810584839 Active DCIS mastectomy and Tamoxifen Siomara Shaffer NP [address] [place], [address], [facility] 6 11:54:46 Depressive disorder 23778774 Active therapist and meds Siomara Shaffer NP [address] [facility], [place], [address], [facility] 6 11:54:46 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 Procedures Surgical History Date Name Laterality Status Provider Name and Address Organization Details Recorded Time 09/20/19 14 Endocervical Polyp Removal completed Siomara Shaffer NP [address] [place], [address], [facility] 09/19/2013 15:20:39 02/23/19 05 Mastectomy completed Christine Pastrana [facility] 09/19/2013 11:41:09 12/08/19 04 Hysteroscopy ablation completed Not Available [facility] 01/07/2011 05:09:26 02/23/18 83 Section completed Christine Pastrana [facility] 09/19/2013 11:45:16 Imaging Results Imaging Date Name Status LastModified by Organization Details LastModified Time 10/05/2013 ultrasound, pelvic transvaginal completed [facility] (Imaging) [address] [place], [address], 10/27/2014 16:06:45 02/06/2016 DEXA, axial skeleton completed [facility] (Radiology) [address] [place], [address], 02/14/2016 14:07:44 02/06/2016 bone density completed [facility] (Radiology) [address] [place], [address], 02/14/2016 14:07:44 Procedure Notes None recorded. Medical Equipment None Reported. Allergies Allergen ID Allergen Name Allergen Category Reaction Reaction Severity Criticality Documentation Date Start Date Code Code System Note Provider Name and Address Organization Details Recorded Time 828037 wheat gluten extract food Not available Not available Not available 09/19/2013 38079 81 RxNorm Christinebetsy abraham [facility] 4 11:32:26 830928 Toradol medicatio n Not available Not available Not available 09/19/2013 09714 RxNorm Christine DotsonLyndon abraham [facility] 4 11:38:11 Medications Name Sig [...] Updated DateTime 4 170.18 cm 24 kg/m2 83065.0 09892 g 73 /min 108 mm[Hg] 76 mm[Hg] Christine roy [facility] 4 11:45:54 Date Recorded Body height Body mass index (BMI) Body weight Heart rate Systolic blood pressure Diastolic blood pressure Provider Name and Address Organization Details Last Updated DateTime 5 170.18 cm 25 kg/m2 63310.9 17436 g 91 /min 121 mm[Hg] 79 mm[Hg] Christine roy [facility] 5 15:34:23 Date Recorded Body height Body weight Body mass index (BMI) Heart rate Systolic blood pressure Diastolic blood pressure Provider Name and Address Organization Details Last Updated DateTime 6 170.18 cm 15287.5 68529 g 25.1 kg/m2 76 /min 129 mm[Hg] 84 mm[Hg] Jayde Adamson [facility] 6 11:22:00 Social History Question Answer Notes LastModified by Organizat ion Details LastModified Time Tobacco Smoking Status Never Smoker Christine abraham [facility] 09/19/2013 11:33:54 What Type Of [...] 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 [employer] Information not available 09/19/2013 Mental Status [...] SNOMED-CT Code Diagnosis ICD10 Code Diagnosis Note [id number] MD Christiano Galloway-MARISELAD [address] [place] [address] 10/18/2003 11:36:17 10/18/2003 12:45:10 [id number] MD Christiano Galloway-MARISELAD [address] [place] [address] 11/20/2003 15:25:00 11/20/2003 16:18:04 [id number] Gonzalez Yung MD [facility] [address] [place] [address] 12/08/2003 00:00:00 03/19/2010 03:30:32 [id number] Gonzalez Yung MD [address] [address] [place] [address] 03/14/2004 07:59:30 03/14/2004 07:59:43 [id number] Siomara Shaffer NP Pravin [facility] [address] [place] [address] 09/19/2013 11:04:09 09/19/2013 14:21:00 Gynecologic examination 58656423 Polyp of cervix 11840698 Abdominal bloating 509913893 [id number] Siomara Shaffer NP P[facility] [address] [place] [address] 10/27/2014 15:26:17 10/31/2014 08:57:55 Gynecologic examination 68527838 Screening for malignant neoplasm of rectum 169258784 Malignant tumor of breast 313432955 [id number] Siomara Shaffer NP Prav[facility] [address] [place] [address] 11/06/2015 11:18:14 11/06/2015 14:21:59 Gynecologic examination 84608247 Z01.419 Screening for malignant neoplasm of rectum 752353442 Z12.12 Health Concerns Section Related Observation LastModified by Organization Detai ls LastModified Time None Recorded Concern Status LastModified by Organization Details LastModified Time None Recorded Advance Directives Directive None Recorded Payers Encounter Date Sequence Insurance Name Policy Number Policy Pinto Covered Member ID Pinto Member ID Guarantor Name 03/13/2004 1 [facility] ([place]) [id number] Jonathan Duke [id number] Kelly Duke 09/19/2013 1 [facility] Kelly Duke [id number] Kelly Duke 10/27/2014 1 [facility] Kelly Duke [id number] Kelly Duke 11/06/2015 1 [facility] Kelly Duke [id number] Kelly Duke Notes Date Note Type Note Provider Name and Address Organization Details Recorded Time 09/19/2013 text/html 1 st visit to ou r office; needs pap and cardiovascular operating room nurse exam; menopausal no bleeding or spotting occasional [...] of Reclast stopped due to TMJ 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 or 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, denies vaginal d/c or itching; - no dysuria, GI- nrm pattern and had colonoscopy; Breast - no lump or nipple d/c followed by oncology Siomara Shaffer NP [address] [place], [address], [facility] 09/20/2013 07:57:44 10/27/2014 text/html Annual HPI PMHx - no major illness, hospitalizations; Family Hx- no changes; 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 or 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, would like to try being more interested in sex; is going on antidepressants, they have not been sexually active for many years; - no dysuria, GI- nrm pattern and had negative colonoscopy this year, Breasts- no problem being followed by oncologist; had DEXA many years ago Siomara Shaffer NP [address] [place], [address], [facility] 10/27/2014 16:10:39 11/06/2015 text/html Annual HPI PMHx - having problems with TMJ; Family Hx- no changes; 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
== END 2024-07-12 08:41 | disposition home or self-care (01) ==
LOC: HO.HOSX 08:40
PROVIDERS: Visit Provider Orthopaedic Surgery
DX: M25.532 Pain in left wrist (principal); S52.502D Unspecified fracture of the lower end of left radius, subsequent encounter for closed fracture with routine healing; S52.615D Nondisplaced fracture of left ulna styloid process, subsequent encounter for closed fracture with routine healing; Z98.890 Other specified postprocedural states
CPT/HCPCS: 73110; 99212

== ENCOUNTER 2024-07-12 13:32 | Outpatient (AMB) | payer MEDICARE, OTHER, SELFPAY ==
--- NOTE | 2024-07-12 13:33 | MHC.OFFVIS ---
Intake Visit Reasons: PO LT distal radius ORIF 06/09/24 AR Intake Note: Kelly is a 69 year old left hand dominant female who presents today for a ROM check s.p Left Distal Radius ORIF 06/09/24. At her last visit she was placed in a Velcro wrist splint to be worn like a cast. States she is doing well. She is currently taking meloxicam for O.A and states this is helping manage pain as well. Allergies gluten Allergy (Mild, Verified 07/12/24 13:46) Diarrhea HPI HPI PO LT distal radius ORIF 06/09/24 AR: Details: Kelly is a 69 year old left hand dominant woman who returns S/P left distal radius ORIF, DOS: 06/09/24. She also has an ulnar styloid fracture, S/P fall, DOI: 06/03/24. She fell while working in her yard. She says she is doing well, with some overall soreness, improved from prior. She says she has not been wearing her splint 15/09 as instructed. She has been removing this when around her house. She continues to have some numbness & tingling in her thumb, which began following her injury and surgery. Her other fingers feel normal. She would like to get back to playing her Ukelele. She complains of generalized OA pain, which she manages with meloxicam. She says this also helps manage any soreness in her wrist. 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 Normal sensation to the ulnar digital nerve distribution of the thumb. Vascular: Cap refill brisk ROM: She can make a fist and extend all her digits Full pronation Supination: ~65 degrees Incision well healed with no evidence of infection Fracture site is non-tender Radiographs: 3 views of the left wrist were taken and viewed by me today in clinic. They show a distal radial metaphysis fracture, as well as an ulnar styloid fracture, both with satisfactory fracture alignment & good evidence of interval bony healing. She has some basal joint arthritis Psych Appearance: grossly normal Affect: normal affect Attitude: cooperative Assessment & Plan Assessment & Plan (1) Distal radius fracture, left: Code(s): S52.502A - Unspecified fracture of the lower end of left radius, initial encounter for closed fracture Category: Medical (2) Closed nondisplaced fracture of styloid process of left ulna: Code(s): S52.615A - Nondisplaced fracture of left ulna styloid process, initial encounter for closed fracture Category: Medical (3) Numbness and tingling in left hand: Code(s): R20.0 - Anesthesia of skin; R20.2 - Paresthesia of skin Category: Medical Plan Assessment & Plan: 1. Left distal radius fracture, S/P ORIF 2. Left ulnar styloid fracture, S/P fall, DOI: 06/03/24 Reduced in the ED: 06/03/24 DOS: 06/09/24 The patient appears to be doing well post-operatively She will continue to wear her velcro wrist splint for the next 2 weeks. Then she will wear this when out of the house for a further 2 weeks. I discussed activity modifications, she is to lift nothing heavier than a cellphone for the next 3 weeks. She will avoid any heavy impact activities or activities prone to falling. She will continue to perform ROM exercises at home I ordered OT hand therapy to work on ROM & normalizing function She will follow up in 4-6 weeks for a ROM check 3. Left hand tingling Primarily in the radial digital nerve distribution of the thumb Symptoms began following her ORIF In regards to her sensation, we will see how this improves over time. She may benefit from a possible carpal tunnel release in the future if her symptoms persist or worsen. I ordered a NCS to assess for peripheral nerve compression She will follow up when completed for review, at least 4+ weeks from today's appointment Scribed for Pati Brito MD by Tj Boo, medical billing and coding specialist, on 07/12/24 at 2:05 PM, EST. Orders: Orders NE electromyogram (EMG) Today R20.0 - Anesthesia of skin, R20.2 - Paresthesia of skin NE nerve conduction velocity Today R20.0 - Anesthesia of skin, R20.2 - Paresthesia of skin XR wrist LT min 3V Today M25.532 - Pain in left wrist OT Evaluation and Treatment Today R20.0 - Anesthesia of skin, R20.2 - Paresthesia of skin, S52.502A - Unspecified fracture of the lower end of left radius, initial encounter for closed fracture Coding Level of Care Code Global (79969) Diagnoses Distal radius fracture, left S52.502A Closed nondisplaced fracture of styloid process of left ulna S52.615A Numbness and tingling in left hand R20.0; R20.2
--- OUTSIDE RECORDS SUMMARY | 2024-07-12 14:44 | XMS_ITS | Data Portability ---
Author Organization [facility], [facility] Address [address] [place] [address] Care Team Providers Care Member Of Congress Name Role Phone BHASKAR HODGES Primary Care Provider Assessment Encounter Date Assessment Date Assessment LastModified [...] DNA w/Pap 30yrs and older 2013 014 [facility] (Lab), [address] [place] [address], [address], 4 12:36:49 Pap smear 2013 014 [facility] (Lab), [address] [place] [address], [address], 4 12:29:48 pathology, surgical - cervical polyp 2013 014 [facility] (Lab), [address] [place] [address], [address], 4 17:36:15 Referral None recorded. 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 [place] [address] PAGE 1 RUN TIME: 1743 Speci men Inqui ry RUN USER: LINO PEÑA ----- ----- ----- ----- ----- ----- ----- ----- ----- ----- ----- ----- ----- ----- ----- ----- ----- ----- -- PATIE NT: YAIMA DUKE W 961 LOC: [facility] U #: [id number] AGE/S X: 58/F ROOM: RE09/[address]: Siomara Shell N.P. : 03/09 BED: DIS: STATU S: REG REF TLOC: ----- ----- ----- ----- ----- ----- ----- ----- ----- ----- ----- ----- ----- ----- ----- ----- ----- ----- -- SPEC #: [id number] RECD: 09/19-2 223 STATU S: SOUT REQ #: [id number] NASRA: 09/19- SUBM DR: Siomara Shell N.P. 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 Thom JORDAN CT( CP),G 09/27 7127 ----- ----- ----- ----- ----- ----- ----- ----- ----- ----- ----- ----- ----- ----- ----- ----- ----- ----- -- FINAL DIAGN OSIS NEGAT OMID FOR INTRA EPITH ELIAL LESIO N OR MALIG AMENA . Atrop hic quintana es prese nt. HPV DNA testi ng for high risk subty pes will be perfo rmed at the [facility] of order jeferson sims and the resul [...] RUN DATE: 09/27 [place] [address] PAGE 2 RUN TIME: 1743 Speci kerline capone RUN USER: LINO PEÑA ----- ----- ----- ----- ----- ----- ----- ----- ----- ----- ----- ----- ----- ----- ----- ----- ----- ----- -- SPEC #: [id number] PATIE NT: YAIMA DUKE #[id number] (Cont inued ) ----- ----- ----- ----- [...] -- END OF REPOR T Not Available [facility] [address], [place], [address], 09/27/2013 17:44:04 09/20/1909/19/2013 patho logy, surgi gonzalo surgical specimens See Satish ts ----- ----- ----- ----- ----- ----- ----- ----- ----- ----- ----- ----- ----- ----- ----- ----- ----- ----- -- RUN DATE: 09/23 [place] [address] PAGE 1 RUN TIME: 1735 Speci men Inqui ry RUN USER: MEDIT ECH ----- ----- ----- ----- ----- ----- ----- ----- ----- ----- ----- ----- ----- ----- ----- ----- ----- ----- -- PATIE NT: YAIMA DUKE W 9[address] LOC: [facility] U #: [id number] AGE/S X: 58/F ROOM: RE09/[address]: Siomara Shell N.P. : 03/09 BED: DIS: STATU S: REG REF TLOC: ----- ----- ----- ----- ----- ----- ----- ----- ----- ----- ----- ----- ----- ----- ----- ----- ----- ----- -- SPEC #: [id number] RECD: 09/19-2 211 STATU S: SOUT REQ #: [id number] NASRA: 09/19- SUBM DR: Siomara Shell N.P. ED: 09/19-2 212 SP TYPE: SURG OTHR DR: ORDER ED: H&E, NAE EXPED ITE, [facility] RECUT BLOCK , RECUT LEVEL S/3, GMUSM [...] -- END OF REPOR T Not Available [facility] [address], [place], [address], 09/23/2013 17:36:13 09/20/19 14 09/26/2013 HPV DNA [...] rmed using the Aptim a HPV Assay ([employer]). Not Available [facility] [address], [place], [address], 09/26/2013 12:36:48 10/06/19 14 10/05/2013 ultra sound , pelvi c trans vagin al No observ ation record ed. [facility] [address], [place], [address], 10/27/2014 16:06:45 02/06/20 16 02/06/2016 DEXA, axial skele ton Henry white Name: RAIMUNDO DUKE Exam Date/T rosita: 1036 ------ ------ ------ ------ ------ ------ ------ ------ ------ ------ ------ ------ ------ -- Exam Number : [id number] RESPON KIERRA KAYE RETER: Marci Bailey [...] Dictat ed: 2015 4:31 PM Report ID: [id number] Report ed By: MARCI BAILEY M.D. Yes [facility] (Radiology) [address], [place], [address], 02/14/2016 14:07:44 02/07/20 16 02/06/2016 bone densi ty No observ ation record ed. [facility] (Radiology) [address], [place], [address], 02/14/2016 14:07:44 Result Notes None recorded. Problems Name Problem SNOMED Code Status Onset Date Resolution Date Notes Provider Name and Address Organization Details Recorded Time Osteopenia 487756112 Active 2 doses Reclast Siomara Shaffer NP [address] [facility] [place], [address], [facility] 6 15:54:17 Malignant tumor of breast 432821085 Active DCIS mastectomy and Tamoxifen Siomara Shaffer NP [address] [place], [address], [facility] 6 11:54:46 Depressive disorder 07024619 Active therapist and meds Siomara Shaffer NP [address] [facility], [place], [address], [facility] 6 11:54:46 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 Procedures Surgical History Date Name Laterality Status Provider Name and Address Organization Details Recorded Time 09/20/19 14 Endocervical Polyp Removal completed Siomara Shaffer NP [address] [place], [address], [facility] 09/19/2013 15:20:39 02/23/19 05 Mastectomy completed Christine Pastrana [facility] 09/19/2013 11:41:09 12/08/19 04 Hysteroscopy ablation completed Not Available [facility] 01/07/2011 05:09:26 02/23/18 83 Section completed Christine Pastrana [facility] 09/19/2013 11:45:16 Imaging Results Imaging Date Name Status LastModified by Organization Details LastModified Time 10/05/2013 ultrasound, pelvic transvaginal completed [facility] (Imaging) [address] [place], [address], 10/27/2014 16:06:45 02/06/2016 DEXA, axial skeleton completed [facility] (Radiology) [address] [place], [address], 02/14/2016 14:07:44 02/06/2016 bone density completed [facility] (Radiology) [address] [place], [address], 02/14/2016 14:07:44 Procedure Notes None recorded. Medical Equipment None Reported. Allergies Allergen ID Allergen Name Allergen Category Reaction Reaction Severity Criticality Documentation Date Start Date Code Code System Note Provider Name and Address Organization Details Recorded Time 723751 wheat gluten extract food Not available Not available Not available 09/19/2013 78783 81 RxNorm Christinebetsy abraham [facility] 4 11:32:26 214867 Toradol medicatio n Not available Not available Not available 09/19/2013 33395 RxNorm Christine DotsonLyndon abraham [facility] 4 11:38:11 Medications Name [...] Updated DateTime 4 170.18 cm 24 kg/m2 93433.0 30195 g 73 /min 108 mm[Hg] 76 mm[Hg] Christine roy [facility] 4 11:45:54 Date Recorded Body height Body mass index (BMI) Body weight Heart rate Systolic blood pressure Diastolic blood pressure Provider Name and Address Organization Details Last Updated DateTime 5 170.18 cm 25 kg/m2 55927.9 42738 g 91 /min 121 mm[Hg] 79 mm[Hg] Christine roy [facility] 5 15:34:23 Date Recorded Body height Body weight Body mass index (BMI) Heart rate Systolic blood pressure Diastolic blood pressure Provider Name and Address Organization Details Last Updated DateTime 6 170.18 cm 93990.5 49279 g 25.1 kg/m2 76 /min 129 mm[Hg] 84 mm[Hg] Jayde Adamson [facility] 6 11:22:00 Social History Question Answer Notes LastModified by Organizat ion Details LastModified Time Tobacco Smoking Status Never Smoker Christine abraham [facility] 09/19/2013 11:33:54 What Type Of Diet Are You Following? GLUTENFREE Information not available 09/19/2013 Which Illicit Or Recreational Drugs Have You Used? None Information not available 09/19/2013 Have You Ever [...] Zika Virus (fever, Rash, Joint Pain, Or Conjunctivitis)? No Information not available 11/06/2015 Have You Recently (within The Last 12 Weeks, Or During A Current ) Traveled To Or Lived In A Zika-affected Area? No Information not available 11/06/2015 Sex: Unknown Functional Status Question Answer Note LastModified by Organizat ion Details LastModified Time What is your level of alcohol consumption? 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 Family History Relationship [...] Cancer Y Kidney or Bladder Problems N Anemia or Blood Disorder N Cardiac Disease N GI Disorders N Neurologic Disease N [...] SNOMED-CT Code Diagnosis ICD10 Code Diagnosis Note [id number] MD Christiano Galloway-MARISELAD [address] [place] [address] 10/18/2003 11:36:17 10/18/2003 12:45:10 [id number] MD Christiano Galloway-MARISELAD [address] [place] [address] 11/20/2003 15:25:00 11/20/2003 16:18:04 [id number] Gonzalez Yung MD [facility] [address] [place] [address] 12/08/2003 00:00:00 03/19/2010 03:30:32 [id number] Gonzalez Yung MD [address] [address] [place] [address] 03/14/2004 07:59:30 03/14/2004 07:59:43 [id number] Siomara Shaffer NP [facility] [address] [place] [address] 09/19/2013 11:04:09 09/19/2013 14:21:00 Gynecologic examination 72557541 Polyp of cervix 58776887 Abdominal bloating 708583376 [id number] Siomara Shaffer NP [facility] [address] [place] [address] 10/27/2014 15:26:17 10/31/2014 08:57:55 Gynecologic examination 61176637 Screening for malignant neoplasm of rectum 822741972 Malignant tumor of breast 880101951 [id number] Siomara Shaffer NP [facility] [address] [place] [address] 11/06/2015 11:18:14 11/06/2015 14:21:59 Gynecologic examination 19064655 Z01.419 Screening for malignant neoplasm of rectum 478053517 Z12.12 Health Concerns Section Related Observation LastModified by Organization Detai ls LastModified Time None Recorded Concern Status LastModified by Organization Details LastModified Time None Recorded Advance Directives Directive None Recorded Payers Encounter Date Sequence Insurance Name Policy Number Policy Pinto Covered Member ID Pinto Member ID Guarantor Name 03/13/2004 1 [facility] ([facility]) [id number] Jonathan Duke [id number] Kelly Duke 09/19/2013 1 [facility] Kelly Duke [id number] Kelly Duke 10/27/2014 1 [facility] Kelly Duke [id number] Kelly Duke 11/06/2015 1 [facility] Kelly Duke [id number] Kelly Duke Notes Date Note Type Note Provider Name and Address Organization Details Recorded Time 09/19/2013 text/html 1 st visit to ou r office; needs pap and counterperson exam; menopausal no bleeding or spotting occasional [...] of Reclast stopped due to TMJ 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, denies vaginal d/c or itching; - no dysuria, GI- nrm pattern and had colonoscopy; Breast - no lump or nipple d/c followed by oncology Siomara Shaffer NP [address] [place], [address], [facility] 09/20/2013 07:57:44 10/27/2014 text/html Annual HPI PMHx - no major illness, hospitalizations; Family Hx- no changes; 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, would like to try being more interested in sex; is going on antidepressants, they have not been sexually active for many years; - no dysuria, GI- nrm pattern and had negative colonoscopy this year, Breasts- no problem being followed by oncologist; had DEXA many years ago Siomara Shaffer NP [address] [place], [address], [facility] 10/27/2014 16:10:39 11/06/2015 text/html Annual HPI PMHx - having problems with TMJ; Family Hx- no changes; 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
== END 2024-07-12 14:28 | disposition home or self-care (01) ==
LOC: HO.HOS 13:32
PROVIDERS: PCP Internal Medicine; Visit Provider Orthopaedic Surgery
DX: S52.502A Unspecified fracture of the lower end of left radius, initial encounter for closed fracture (principal); S52.615A Nondisplaced fracture of left ulna styloid process, initial encounter for closed fracture; R20.0 Anesthesia of skin; R20.2 Paresthesia of skin
CPT/HCPCS: 99024

== ENCOUNTER → 2024-07-12 13:33 | Outpatient (BNV) | payer MEDICARE, OTHER, SELFPAY | PROVIDERS: Visit Provider Radiology Diagnostic Radiology | DX: M25.532 Pain in left wrist (principal) | CPT/HCPCS: 73110 ==

== ENCOUNTER 2024-08-10 13:45 | Outpatient (AMB) | payer MEDICARE, OTHER, SELFPAY ==
--- NOTE | 2024-08-10 14:02 | MHC.OFFVIS ---
Intake Visit Reasons: PO LT distal radius ORIF 06/09/24 AR Intake Note: Kelly is a 69 year old left hand dominant female who presents today for a ROM check s.p Left Distal Radius ORIF 06/09/24. At her last visit she was advise to work on ROM with O.T and get a new EMG study. She is scheduled to have her EMG on 08/23/24. States she has improved her ROM working with O.T but still some what limited. Allergies gluten Allergy (Mild, Verified 08/10/24 14:07) Diarrhea HPI HPI PO LT distal radius ORIF 06/09/24 AR: Details: Kelly is a 69 year old left hand dominant woman who returns S/P left distal radius ORIF, DOS: 06/09/24. She also has an ulnar styloid fracture, S/P fall, DOI: 06/03/24. She is here for a ROM check She says she is doing well overall. She has been attending OT hand therapy and working on ROM exercises at home. She says this has helped improve her ROM but she still feels somewhat limited. She continues to have some numbness & tingling in her thumb, which began following her injury and surgery. Her other fingers feel normal. She has her NCS scheduled for 08/23/24. She feels her numbness has slightly improved in the last few weeks. Se has returned to playing her Ukelele and is anticipating starting to play her Guitar again She complains of generalized OA pain, which she manages with meloxicam. She says this also helps manage any soreness in her wrist. 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 Normal sensation to the ulnar digital nerve distribution of the thumb. She reports that the sensation is improving more proximally in the thumb. Vascular: Cap refill brisk ROM: She can make a fist and extend all her digits Full pronation Supination: ~65 degrees Flexion: ~65 degrees Extension: 35 degrees Fracture site is non-tender Psych Appearance: grossly normal Affect: normal affect Attitude: cooperative Assessment & Plan Assessment & Plan (1) Distal radius fracture, left: Code(s): S52.502A - Unspecified fracture of the lower end of left radius, initial encounter for closed fracture Category: Medical (2) Closed nondisplaced fracture of styloid process of left ulna: Code(s): S52.615A - Nondisplaced fracture of left ulna styloid process, initial encounter for closed fracture Category: Medical (3) Numbness and tingling in left hand: Code(s): R20.0 - Anesthesia of skin; R20.2 - Paresthesia of skin Category: Medical Plan Assessment & Plan: 1. Left distal radius fracture, S/P ORIF 2. Left ulnar styloid fracture, S/P fall, DOI: 06/03/24 Reduced in the ED: 06/03/24 DOS: 06/09/24 The patient appears to be doing well post-operatively I discussed activity modifications, she is to use her hand for more normal daily activities, slowly increasing her weight limit as tolerated over the next few weeks. She will continue to perform ROM exercises at home, and continue to attend OT hand therapy to work on ROM & normalizing function 3. Left hand tingling Primarily in the radial digital nerve distribution of the thumb Symptoms began following her ORIF In regards to her sensation, patient reports this has improved somewhat since her last appointment. She may benefit from a possible carpal tunnel release in the future if her symptoms persist or worsen. Her NCS is scheduled for 08/23/24 She will follow up in 4-6 weeks for review & to check her ROM Scribed for Pati Brito MD by Tj Boo, dental assistant medical assistant, on 08/10/24 at 2:05 PM, EST. Coding Level of Care Code Est Pt Level 3 (86744) Diagnoses Distal radius fracture, left S52.502A Closed nondisplaced fracture of styloid process of left ulna S52.615A Numbness and tingling in left hand R20.0; R20.2
== END 2024-08-10 14:27 | disposition home or self-care (01) ==
LOC: HO.HOS 13:46
PROVIDERS: Visit Provider Orthopaedic Surgery
DX: S52.502A Unspecified fracture of the lower end of left radius, initial encounter for closed fracture (principal); S52.615A Nondisplaced fracture of left ulna styloid process, initial encounter for closed fracture; R20.0 Anesthesia of skin; R20.2 Paresthesia of skin
CPT/HCPCS: 99213

== ENCOUNTER → 2024-08-10 13:45 | Outpatient (BNVA) | payer MEDICARE, OTHER, SELFPAY | PROVIDERS: Visit Provider Orthopaedic Surgery | DX: S52.502D Unspecified fracture of the lower end of left radius, subsequent encounter for closed fracture with routine healing (principal); S52.615D Nondisplaced fracture of left ulna styloid process, subsequent encounter for closed fracture with routine healing; R20.0 Anesthesia of skin; R20.2 Paresthesia of skin | CPT/HCPCS: 99212 ==

== ENCOUNTER 2024-08-22 11:31 | Outpatient (RCR) | payer MEDICARE, OTHER, SELFPAY ==
--- NOTE | 2024-07-22 15:15 | MHC.OT.EP ---
[address] [phone] Occupational Therapy Plan of Care Patient Name: Kelly Duke Date of Evaluation: 07/22/24 Diagnosis: L DRF post ORIF Pain Location: Pain Score: Pain Scale Used: Aggravating Factors: Alleviating Factors: Assessment: Pt is a 69 yr old L hand dominant female who fractured her L wrist on 06/03 while working in her yard; pt reports FOOSH and placing her L UE down to brace her fall. Pt reports being on hill when she fell. Pt went right away to the ED here at [facility]. Pt was placed in am aced bandage splint and then met w/ Dr. Brito the following week and ORIF surgery was scheduled for the . Pt presents today w/ limited ROM, strength, and functional use of her (L) dominant hand. Pt would benefit from skilled OT therapy to address these deficits and RPLOF. Frequency and Duration: The patient will be seen 2xs a week for 6 weeks Short Term Goals: Pt will be complaint w/ her HEP Pt will gain 10 of pronation (80) Pt. will gain 20 of wrist extension to 30 Group Home Goals: Pt will have 40 wrist extension Pt will report using her L hand to hold a mug of tea w/ out difficulty Pt will report RPLOF Treatment Plan: Therapeutic Exercise Therapeutic Activity Home Exercise Program Splinting Neuro Re-ed Patient Education Desensitization/Sensory Re-ed Edema Control ADL Training Ultrasound NMES Paraffin Fluidotherapy MHP Cold Packs Joint Mobilization Soft Tissue Mobilization Kinesiotaping Electronically Signed By: Nichole Ngo OTR/L Please Sign and return to therapist. Thank you once again for your referral.
== END 2024-08-22 12:46 | disposition home or self-care (01) ==
LOC: HO.OT 11:31
PROVIDERS: PCP Internal Medicine; Visit Provider Orthopaedic Surgery
DX: R20.0 Anesthesia of skin (principal); R20.2 Paresthesia of skin; S52.502D Unspecified fracture of the lower end of left radius, subsequent encounter for closed fracture with routine healing
CPT/HCPCS: 97110; 97140; 97166

== ENCOUNTER 2024-08-23 10:02 | Outpatient (REF) | payer MEDICARE, OTHER, SELFPAY ==
--- NOTE | 2024-08-23 11:49 | EMG_ITS ---
FINDINGS: Left median and ulnar motor and sensory studies were performed. Left radial sensory and median and lateral antecubital brachial sensory studies were performed and paraspinal muscles were tested with a needle. IMPRESSION: Mild left median neuropathy across carpal tunnel. Please see the attached neurophysiology report for details MD DIONICIO Kidd/BIRGIT / [id number] MTDD
== END 2024-08-23 10:03 | disposition home or self-care (01) ==
LOC: HO.NEURO 10:02
PROVIDERS: PCP Internal Medicine; Visit Provider Orthopaedic Surgery
DX: R20.0 Anesthesia of skin (principal); R20.2 Paresthesia of skin; G56.12 Other lesions of median nerve, left upper limb; M79.644 Pain in right finger(s)
CPT/HCPCS: 95886; 95910

== ENCOUNTER → 2024-08-23 11:49 | Outpatient (BNV) | payer MEDICARE, OTHER, SELFPAY | PROVIDERS: PCP Internal Medicine; Visit Provider Psychiatry & Neurology Neurology | DX: G56.02 Carpal tunnel syndrome, left upper limb (principal) | CPT/HCPCS: 95886; 95910 ==

== ENCOUNTER 2024-09-13 13:05 | Outpatient (AMB) | payer MEDICARE, OTHER, SELFPAY ==
--- NOTE | 2024-09-13 13:19 | MHC.OFFVIS ---
Intake Visit Reasons: OV-EMG/NCS left hand, Review Intake Note: Kelly 69 yr old female presents today for her follow up visit to review her EMG study for her left hand. IMPRESSION: Mild left median neuropathy across carpal tunnel. Allergies gluten Allergy (Mild, Verified 09/13/24 13:45) Diarrhea HPI HPI OV-EMG/NCS left hand, Review: Details: Kelly is a 69 year old left hand dominant woman who returns for a NCS review of her left hand numbness. She continues to have some numbness & tingling in her thumb, which began following her injury and surgery. Her other fingers feel normal. She says this is most bothersome at night, but occurs daily. She also complains of pain in her wrist & hand, which she says feels like nerve pain . She says this pain causes her to have limited fly setter strength.? She is S/P left distal radius ORIF, DOS: 06/09/24. She also has an ulnar styloid fracture, S/P fall, DOI: 06/03/24. She has returned to playing her Ukelele and is anticipating starting to play her Guitar again She complains of generalized OA pain, which she manages with meloxicam. She says this has been worse in her shoulders over the last few weeks, primarily at night. 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 Normal sensation to the ulnar digital nerve distribution of the thumb. She reports that the sensation is improving more proximally in the thumb. Vascular: Cap refill brisk ROM: She can make a fist and extend all her digits Fracture site is non-tender Nerve Conduction Study: IMPRESSION: Mild left median neuropathy across carpal tunnel. Please see the attached neurophysiology report for details Darshana Gilliland MD 08/23/2024 Psych Appearance: grossly normal Affect: normal affect Attitude: cooperative Assessment & Plan Assessment & Plan (1) Carpal tunnel syndrome of left wrist: Code(s): G56.02 - Carpal tunnel syndrome, left upper limb Category: Medical Plan Assessment & Plan: 1. Left carpal tunnel syndrome, mild to moderate Primarily in the radial digital nerve distribution of the thumb Symptoms intermittent, but daily, worse at night, began following her ORIF I educated her about this condition I discussed operative and non-operative treatment options The patient would like to proceed with surgery. She is thinking sometime in October The risks and benefits of operative treatment were discussed with the patient and the patient wishes to proceed with surgery. These risks include, but are not limited to risk of damage to blood vessels, nerves, tendons, infection, recurrence, incomplete relief of preoperative symptoms, persistent pain, possible need for further surgery and the risks associated with regional blocks and anesthesia. The plan is to take the patient to the operating room sometime in the next few months for the following procedures: 1. Left carpal tunnel release, under local All of the preoperative paperwork including the consent was reviewed today. All the patient's questions were answered. The patient understands that they will be contacted by our secret code expert soon to schedule this procedure She denies Diabetes, blood thinners, asthma, heart, lung, kidney issues 2. Left distal radius fracture, S/P ORIF 3. Left ulnar styloid fracture, S/P fall, DOI: 06/03/24 Reduced in the ED: 06/03/24 DOS: 06/09/24 She will continue to perform ROM exercises at home, and continue to attend OT hand therapy to work on ROM & normalizing function Scribed for Pati Brito MD by Tj Boo, medical apparatus model maker, on 09/13/24 at 1:50 PM, EST. Coding Level of Care Code Est Pt Level 4 (64895) Diagnoses Carpal tunnel syndrome of left wrist G56.02
--- OUTSIDE RECORDS SUMMARY | 2024-09-13 14:09 | XMS_ITS | Encounter Summary ---
Author Organization [facility] Address [address] [facility] [address] [place] [address] Phone Care Team Providers Care Media Supervisor Name Role Phone Franco, Arianne A MD Primary Care Provider [phone] Franco, Arianne A MD Unavailable [phone] Franco, Arianne A MD Unavailable [phone] Encounter Details Date Type Department Care Team (Late st Contact Info) Description 11/03/2019 Ancillary Orders [facility] [address] [place] [address] Arianne Franco MD [address] [place] [address], 2nd [place] [address] [email or web address] Breast cancer screening by mammogram Social History Tobacco Use Types Packs/Day Years Used Date Smoking Tobacco: Former Cigarettes 0.3 6 Smokeless Tobacco: Never Alcohol Use Standard Drinks/Week Comments Yes 4 (1 standard drink = 0.6 oz pur e alcohol) Comments No Sex and Gender Information Value Date Recorded Sex Assigned at Female 03/02/2017 9:35 AM EST Legal Sex Female 8:47 AM EDT Gender Identity Female 03/02/2017 9:35 AM EST Sexual Orientation Straight 03/02/2017 9: 35 AM EST documented as of this encounter Plan of Treatment Upcoming Encounters Date Type Department Care Team (Late st Contact Info) Description 10/05/2024 1:00 PM EDT Office Visit [facility] - [address] [place] [address] Anupam Montero MD [address] [place] [address] [email or web address] documented as of this encounter Results * BI MAMMOGRAM SCREENING WITH TOMOSYNTHESIS WITH CAD (LEFT) (11/03/2019 1:53 PM EDT) Anatomical Region Laterality Modality Breast Left, Breast Bilateral Left Ma mmography 11/03/2019 9:11 PM EDT Impressions 11/03/2019 9:14 PM EDT LEFT BREAST: Negative, no evidence of malignancy. Normal interval follow-up is recommended in 12 months. BI-RADS: BI-RADS CATEGORY: 1 - Negative. DENSITY: There are scattered fibroglandular densities. Narrative 11/03/2019 9:14 PM EDT STUDY: Unilateral left screening mammography with tomosynthesis and CAD History: Right mastectomy in 2004 for breast cancer TECHNIQUE: Unilateral left full-field digital screening mammography is obtained and read in conjunction with computer-aided detection. Tomosynthesis as well as 2-D C view imaging were obtained. COMPARISON: Comparison made to multiple prior, most recent November 01, 2018, and most remote October 11, 2013. BREAST COMPOSITION: There are scattered areas of fibroglandular density LEFT BREAST: No significant masses, calcifications or other abnormalities are seen. Procedure Note Ghislaine Sheffield MD - 11/03/2019 STUDY: Unilateral left screening mammography with tomosynthesis and CAD History: Right mastectomy in 2004 for breast cancer TECHNIQUE: Unilateral left full-field digital screening mammography isobtained and read in conjunction with computer-aided detection.Tomosynthesis as well as 2-D C view imaging were obtained. COMPARISON: Comparison made to multiple prior, most recent October, and most remote October 11, 2013. BREAST COMPOSITION: There are scattered areas of fibroglandulardensity LEFT BREAST: No significant masses, calcifications or other abnormalitiesare seen. IMPRESSION: LEFT BREAST: Negative, no evidence of malignancy. Normal intervalfollow-up is recommended in 12 months. BI-RADS: BI-RADS CATEGORY: 1 - Negative. DENSITY: There are scattered fibroglandular densities. us Arianne Franco MD IMG MG EXAMS Final Result documented in this encounter Visit Diagnoses Diagnosis Breast cancer screening by mammogram Breast cancer screening by mammogram documented in this encounter Additional Health Concerns Infection Onset Date Last Indicated Resolved Time CoV-Risk Comment:Per Ambulatory Triage Form 10/24/2021 10/24/202111/04 1:22 AM EDT Assessment Noted Time PHQ-2 Depression Total Score: 0 09/01/19 9:57 AM EDT documented as of this encounter Care Teams Media Supervisor Relationship Specialty Start Date End Date Arianne Franco MD [address] [place] [address] PCP - General 12/11/16 Arianne Franco MD [address] [place] [address] Historical LMR Provider 12/13/16 Arianne Franco MD [address] [place] [address] Insurance Assigned Provider 05/30/23 documented as of this encounter Additional Source Comments The information contained in this document represents components of the legal health record. It is not the complete legal health record.[facility]
--- OUTSIDE RECORDS SUMMARY | 2024-09-13 14:10 | XMS_ITS | Data Portability ---
Author Organization [facility], [facility] Address [address] [place] [address] Care Team Providers Care House Manager Name Role Phone BHASKAR HODGES Primary Care [...] DNA w/Pap 30yrs and older 2013 014 [facility] (Lab), [address] [place] [address], [address], 4 12:36:49 Pap smear 2013 014 [facility] (Lab), [address] [place] [address], [address], 4 12:29:48 pathology, surgical - cervical polyp 2013 014 [facility] (Lab), [address] [place] [address], [address], 4 17:36:15 Referral None recorded. Procedures None [...] LastModifiedTime 09/20/19 14 09/19/2013 Pap smear cytology wood gouger See Satish ashley ----- ----- ----- ----- ----- ----- ----- ----- ----- ----- ----- ----- ----- ----- ----- ----- ----- ----- -- RUN DATE: 09/27 [place] [address] PAGE 1 RUN TIME: 1743 Speci men Inqui ry RUN USER: LINO PEÑA ----- ----- ----- ----- ----- ----- ----- ----- ----- ----- ----- ----- ----- ----- ----- ----- ----- ----- -- PATIE NT: YAIMA DUKE W 961 LOC: [facility] U #: [id number] AGE/S X: 58/F ROOM: RE09/[address]: Siomara Shell N.P. : 03/09 BED: DIS: STATU S: REG REF TLOC: ----- ----- ----- ----- ----- ----- ----- ----- ----- ----- ----- ----- ----- ----- ----- ----- ----- ----- -- SPEC #: [id number] RECD: 09/19-2 223 STATU S: SOUT REQ #: [id number] NASRA: 09/19- SUBM DR: Siomara Shell N.P. ENTER ED: 09/19-2 223 SP TYPE: CYT FISHER SPEAR OTHR DR: ORDER ED: [facility] HPV SENDO UT, [facility] TPPI SCRN, CYTOT INTRP (89 TISSU [...] rmed using the Aptim a HPV Assay ([employer]). Thom ESPINOSA( CP),G 09/27 9877 ----- ----- ----- ----- ----- ----- ----- ----- ----- ----- ----- ----- ----- ----- ----- ----- ----- ----- -- FINAL DIAGN OSIS NEGAT OMID FOR INTRA EPITH ELIAL LESDEREK N OR YARITZA BECKWITH . Atrop hic quintana es prese nt. HPV DNA testi ng for high risk subty pes will be [facility] order ing jigar sims and the resul t will be repor anneliese in an adden dum. Khurram Mott, [place]( CP) Repor t Elect precious jason This Pap test was scree enrique using the compu teriz ed ThinP rep Imagi ng Systlencho m, then yolanda bowers and inter pretlencho d. JOBY JEAN PIERRE ON NEXT PAGE ----- ----- ----- ----- ----- ----- ----- ----- ----- ----- ----- ----- ----- ----- ----- ----- ----- ----- -- RUN DATE: 09/27 [place] [address] PAGE 2 RUN TIME: 1743 Speci kerline capone RUN USER: LINO PEÑA ----- ----- ----- ----- ----- ----- ----- ----- ----- ----- ----- ----- ----- ----- ----- ----- ----- ----- -- SPEC #: [id number] PATIE NT: YAIMA DUKE W #[id number] (Cont inued ) ----- ----- ----- ----- [...] TION TRANS FORMA TION ZONE: Endoc vinay dunbar/edie scott on zone compo nent absen t ----- ----- ----- ----- ----- ----- ----- ----- ----- ----- ----- ----- ----- ----- ----- ----- ----- ----- -- Di ESPINOSA- DO ARACELY ANDERSEN 09/22 1227 ----- ----- ----- ----- ----- ----- ----- ----- ----- ----- ----- ----- ----- ----- ----- ----- ----- ----- -- END OF REPOR T Not Available [facility] [address], [place], [address], 09/27/2013 17:44:04 09/20/1909/19/2013 patho logy, surgi gonzalo surgical specimens See Satish ts ----- ----- ----- ----- ----- ----- ----- ----- ----- ----- ----- ----- ----- ----- ----- ----- ----- ----- -- RUN DATE: 09/23 [place] [address] PAGE 1 RUN TIME: 1735 Speci men Inqui ry RUN USER: KELLYT ECH ----- ----- ----- ----- ----- ----- ----- ----- ----- ----- ----- ----- ----- ----- ----- ----- ----- ----- -- EMILY NT: YAIMA DUKE W 961 LOC: [facility] U #: [id number] AGE/S X: 58/F ROOM: RE09/[address]: Siomara Shell N.P. : 03/09 BED: DIS: STATU S: REG REF TLOC: ----- ----- ----- ----- ----- ----- ----- ----- ----- ----- ----- ----- ----- ----- ----- ----- ----- ----- -- SPEC #: [id number] RECD: 09/19-2 211 STATU S: SOUT REQ #: [id number] NASRA: 09/19- SUBM DR: Siomara Shell N.P. ED: 09/19-2 212 SP TYPE: SURG OTHR DR: ORDER ED: H&E, NAE EXPED ITE, NAE RECUT BLOCK , RECUT LEVEL S/3, GMUSM [...] FRAGM ENT OF MUCIN OUS MATER IAL; SHANITA ER, ON MICRO SCOPI C EVALU ATION [...] -- END OF REPOR T Not Available [facility] [address], [place], [address], 09/23/2013 17:36:13 09/20/19 14 09/26/2013 HPV DNA [...] rmed using the Aptim a HPV Assay ([employer]). Not Available [facility] [address], [place], [address], 09/26/2013 12:36:48 10/06/19 14 10/05/2013 ultra sound , pelvi c trans vagin al No observ ation record ed. ctallon [facility] (Imaging) [address] [facility], [place], [address], 10/27/2014 16:06:45 02/06/20 16 02/06/2016 DEXA, axial skele ton Henry white Name: RAIMUNDO DUKE Exam Date/T rosita: 1036 ------ ------ ------ ------ ------ ------ ------ ------ ------ ------ ------ ------ ------ -- Exam Number : [id number] RESPON KIERRA KAYE RETER: Marci Bailey M.D. - [facility] ID: [id number] EXAMIN ATION: BONE DENSIT Y CENTRA L [...] Dictat ed: 2015 4:31 PM Report ID: [id number] Report ed By: MARCI BAILEY M.D. Yes [facility] (Radiology) [address], [place], [address], 02/14/2016 14:07:44 02/07/20 16 02/06/2016 bone densi ty No observ ation record ed. [facility] (Radiology) [address], [place], [address], 02/14/2016 14:07:44 Result Notes Documentation Provider Name and Address Organization Details Recorded Time Dexa, Axial Skeleton : Patient Name: KELLY DUKE Exam Date/Time: 02/06/16 1036 ----- Exam Number: [id number] RESPONSIBLE KALSOMINER: Marci Bailey M.D. - [facility] ID: [id number] EXAMINATION: BONE DENSITY CENTRAL CLINICAL INDICATION: Osteopenia. Postmenopausal female. TECHNIQUE: Dual Energy X-Ray Absorptiometry (DEXA technique) was performed with measurements of the lumbar spine and right hip. GENERAL INFORMATION FOR BONE DENSITOMETRY: BMD Reporting in Postmenopausal Women and in Males age 50 and Older: The Z-score refers to standard deviations with reference to the age-matched mean. The T-score refers to standard deviations with reference to mean young adult (white females age 20-29) peak bone mass. The World Health Organization (WHO) has defined low bone mass or osteopenia as between 1-2.5 standard deviations below mean young adult peak bone mass (T-score) and osteoporosis as 2.5 or more standard deviations below that mean. BMD Reporting in Females prior to menopause and in Males Younger then age 50: The Z-score is preferred. A Z-score of -2.0 or lower is defined as below the expected range for age and a Z-score above -2.0 is within the expected range for age . COMPARISON: 2011 FINDINGS: L-Spine: T-score -2.0 Z-score -0.5 This represents a 2.1% deterioration Right Femoral Neck: BMD 0.672 g/cm T-score -1.6 Z-score -0.2 Right Hip: T-score -1.0 Z-score 0.1 This represents a 6.6% deterioration IMPRESSION: Based on the WHO definition above, there is osteopenia of the lumbar spine and right hip. (See separately mailed data sheets). Dictated: 02/06/2016 4:31 PM Report ID: [id number] Reported By: MARCI BAILEY M.D. Yes Siomara Shaffer NP [address] [place], [address], [facility] 02/14/2016 14:07:44 Problems Name Problem SNOMED Code Status Onset Date Resolution Date Notes Provider Name and Address Organization Details Recorded Time Osteopenia 961818926 Active 2 doses Reclast Siomara Shaffer NP [address] [place], [address], [facility] 6 15:54:17 Malignant tumor of breast 800046180 Active DCIS mastectomy and Tamoxifen Siomara Shaffer NP [address] [place], [address], [facility] 6 11:54:46 Depressive disorder 81488438 Active therapist and meds Siomara Shaffer NP [address] [place], [address], [facility] 6 11:54:46 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 Procedures Surgical History Date Name Laterality Status Provider Name and Address Organization Details Recorded Time 09/20/19 14 Endocervical Polyp Removal completed Siomara Shaffer NP [address] [place], [address], [facility] 09/19/2013 15:20:39 02/23/19 05 Mastectomy completed Christine Pastrana [facility] 09/19/2013 11:41:09 12/08/19 04 Hysteroscopy ablation completed Not Available [facility] 01/07/2011 05:09:26 02/23/18 83 Section completed Christinebetsy Pastrana [facility] 09/19/2013 11:45:16 Imaging Results None recorded. Procedure Notes None recorded. Medical Equipment None Reported. Allergies Allergen ID Allergen Name Allergen Category Reaction Reaction Severity Criticality Documentation Date Start Date Code Code System Note Provider Name and Address Organization Details Recorded Time 344941 wheat gluten extract food Not available Not available Not available 09/19/2013 37075 81 RxNorm Christine SolorioadoRaj abraham [facility] 4 11:32:26 643837 Toradol medicatio n Not available Not available Not available 09/19/2013 21080 RxNorm Christine SolorioadoRaj abraham [facility] 4 11:38:11 Medications Name Sig [...] index (BMI) Body weight Heart rate Systolic And Diastolic Provider Name and Address Organization Details Last Updated DateTime 09/19/2013 170.18 cm 24 kg/m2 00731.06 9558 g 73 /min 108/76 mm[Hg] Christine martinez [facility] 09/19/2013 11:45:54 Date Recorded Body height Body mass index (BMI) Body weight Heart rate Systolic And Diastolic Provider Name and Address Organization Details Last Updated DateTime 10/27/2014 170.18 cm 25 kg/m2 77386.98 3015 g 91 /min 121/79 mm[Hg] Christine martinez [facility] 10/27/2014 15:34:23 Date Recorded Body height Body weight Body mass index (BMI) Heart rate Systolic And Diastolic Provider Name and Address Organization Details Last Updated DateTime 11/06/2015 170.18 cm 94496.57 5385 g 25.1 kg/m2 76 /min 129/84 mm[Hg] Jayde Adamson CT Stefani [facility] 11/06/2015 11:22:00 Social History Question Answer Notes LastModified by [employer] Details LastModified Time Tobacco Smoking Status Never Smoker ChristineMICHAELA Jasso [facility] 09/19/2013 11:33:54 What Type Of [...] Functional Status Question Answer Note LastModified by [email or web address] Details LastModified Time What is your level of alcohol consumption? 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 Libersy ctallon Information not available 09/19/2013 Mental Status [...] SNOMED-CT Code Diagnosis ICD10 Code Diagnosis Note [id number] MD Christiano [address] [place] [address] 10/18/2003 11:36:17 10/18/2003 12:45:10 [id number] MD Christiano [address] [address] [place] [address] 11/20/2003 15:25:00 11/20/2003 16:18:04 [id number] Gonzalez Yung MD [facility] [address] [place] [address] 12/08/2003 00:00:00 03/19/2010 03:30:32 [id number] MD [address] [place] [address] 03/14/2004 07:59:30 03/14/2004 07:59:43 [id number] Siomara Shaffer NP [facility] [address] [place] [address] 09/19/2013 11:04:09 09/19/2013 14:21:00 Gynecologic examination 64699277 Polyp of cervix 27328199 Abdominal bloating 098283297 [id number] Siomara Shaffer NP [facility] [address] [place] [address] 10/27/2014 15:26:17 10/31/2014 08:57:55 Gynecologic examination 26559906 Screening for malignant neoplasm of rectum 609008116 Malignant tumor of breast 772300589 [id number] Siomara Shaffer NP [facility] [address] [place] [address] 11/06/2015 11:18:14 11/06/2015 14:21:59 Gynecologic examination 91996480 Z01.419 Screening for malignant neoplasm of rectum 285260495 Z12.12 Health Concerns Section Related Observation LastModified by Organization Detai ls LastModified Time None Recorded Concern Status LastModified by Organization Details LastModified Time None Recorded Advance Directives Directive None Recorded Payers Insurance Date Sequence Insurance Name Policy Number Policy Pinto Covered Member ID Pinto Member ID Guarantor Name 10/08/2013 1 [facility] ([place] [id number] Jonathan Duke [id number] Kelly Duke 11/03/2015 1 [facility] Kelly Duke [id number] Kelly Duke Notes Date Note Type Note Provider Name and Address Organization Details Recorded Time 09/19/2013 text/html 1 st visit to ou r office; needs pap and wood gouger exam; menopausal no bleeding or spotting occasional [...] of Reclast stopped due to TMJ ROS/ FISHER SPEAR- no bleeding or spotting, denies vaginal d/c or itching; - no dysuria, GI- nrm pattern and had colonoscopy; Breast - no lump or nipple d/c followed by oncology Siomara Shaffer NP [address] [place], [address], [facility] 09/20/2013 07:57:44 10/27/2014 text/html Annual HPI PMHx - no major illness, hospitalizations; Family Hx- no changes; ROS/ FISHER SPEAR- no bleeding or spotting, would like to try being more interested in sex; is going on antidepressants, they have not been sexually active for many years; - no dysuria, GI- nrm pattern and had negative colonoscopy this year, Breasts- no problem being followed by oncologist; had DEXA many years ago Siomara Shaffer NP [address] [place], [address], [facility] 10/27/2014 16:10:39 11/06/2015 text/html Annual HPI PMHx - having problems with TMJ; Family Hx- no changes; ROS/ FISHER SPEAR- no bleeding or spotting, denies vaginal d/c [...] has appointment with primary; very happy with assisted and is haivng a grandchild Siomara Shaffer NP [address] [place], [address], [facility] 11/06/2015 14:10:38 OBGyn Episode No OBEpisode recorded.
== END 2024-09-13 14:08 | disposition home or self-care (01) ==
LOC: HO.HOS 13:06
PROVIDERS: PCP Internal Medicine; Visit Provider Orthopaedic Surgery
DX: G56.02 Carpal tunnel syndrome, left upper limb (principal)
CPT/HCPCS: 99214

== ENCOUNTER → 2024-09-13 13:05 | Outpatient (BNVA) | payer MEDICARE, OTHER, SELFPAY | PROVIDERS: PCP Internal Medicine; Visit Provider Orthopaedic Surgery | DX: G56.02 Carpal tunnel syndrome, left upper limb (principal) | CPT/HCPCS: 99212 ==

== ENCOUNTER 2024-11-07 08:20 | Day surgery (SDC) | payer MEDICARE, OTHER, SELFPAY ==
--- OUTSIDE RECORDS SUMMARY | 2024-09-19 09:23 | XMS_ITS | Encounter Summary ---
Author Organization [facility] Address [address] [facility] [address] [place] [address] Phone Care Team Providers Care Radiator Mechanic Name Role Phone Franco, Arianne A MD Primary Care Provider [phone] Franco, Arianne A MD Unavailable [phone] Franco, Arianne A MD Unavailable [phone] Encounter Details Date Type Department Care Team (Late st Contact Info) Description 11/03/2019 Ancillary Orders [facility] [address] [place] [address] Arianne Franco MD [address] [place] [address], 2nd [place] [address] [email or web address] Breast cancer screening by mammogram Social History [...] Description 10/05/2024 1:00 PM EDT Office Visit [facility] - [address] [place] [address] Anupam Montero MD [address] [place] [address] [email or web address] documented as of this encounter [...] documented as of this encounter Care Teams Radiator Mechanic Relationship Specialty Start Date End Date Arianne Franco MD [address] [place] [address] PCP - General 12/11/16 Arianne Franco MD [address] [place] [address] Historical LMR Provider 12/13/16 Arianne Franco MD [address] [place] [address] Insurance Assigned Provider 05/30/23 documented as of this encounter Additional Source Comments The information contained in this document represents components of the legal health record. It is not the complete legal health record.[facility]
--- OUTSIDE RECORDS SUMMARY | 2024-09-19 09:23 | XMS_ITS | Data Portability ---
Author Organization [facility] Address [address] [place] [address] Care Team Providers Care Paver Operator Name Role Phone BHASKAR HODGES Primary Care Provider [phone] Assessment Encounter Date Assessment Date Assessment LastModified [...] 2013 014 [facility] (Lab), [address] [place] [address], [address], 4 12:36:49 Pap smear 2013 014 [facility] (Lab), [address] [place] [address], [address], 4 12:29:48 pathology, surgical - cervical polyp 2013 014 [facility] (Lab), [address] [place] [address], [address], 4 17:36:15 Referral None recorded. Procedures None [...] LastModifiedTime 09/20/19 14 09/19/2013 Pap smear cytology contract agent See Satish ashley ----- ----- ----- ----- ----- ----- ----- ----- ----- ----- ----- ----- ----- ----- ----- ----- ----- ----- -- RUN DATE: 09/27 [place] [address] PAGE 1 RUN TIME: 1743 Speci men Inqui ry RUN USER: LINO PEÑA ----- ----- ----- ----- ----- ----- ----- ----- ----- ----- ----- ----- ----- ----- ----- ----- ----- ----- -- PATIE NT: YAIMA DUKE W 961 LOC: [facility] U #: [id number] AGE/S X: 58/F ROOM: RE09/[address]: Siomara Shell N.P. : 03/09 BED: DIS: STATU S: REG REF TLOC: ----- ----- ----- ----- ----- ----- ----- ----- ----- ----- ----- ----- ----- ----- ----- ----- ----- ----- -- SPEC #: [id number] RECD: 09/19-2 223 STATU S: SOUT REQ #: [id number] NASRA: 09/19- SUBM DR: Siomara Shell N.P. 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 Thom ESPINOSA( CP),G 09/27 4957 ----- ----- ----- ----- ----- ----- ----- ----- ----- ----- ----- ----- ----- ----- ----- ----- ----- ----- -- FINAL DIAGN OSIS NEGAT OMID FOR INTRA EPITH ELIAL LESDEREK N OR YARITZA BECKWITH . Atrop hic quintana es prese nt. HPV DNA testi ng for high risk subty pes [facility] order ing jigar sims [...] RUN DATE: 09/27 [place] [address] PAGE 2 RUN TIME: 1743 Speci kerline capone RUN USER: LINO PEÑA ----- ----- ----- ----- ----- ----- ----- ----- ----- ----- ----- ----- ----- ----- ----- ----- ----- ----- -- SPEC #: [id number] PATIE NT: YAIMA DUKE W #[id number] (Cont inued ) ----- ----- ----- ----- [...] -- END OF REPOR T Not Available [facility] [address], [place], [address], 09/27/2013 17:44:04 09/20/1909/19/2013 patho logy, surgi gonzalo surgical specimens See Satish ts ----- ----- ----- ----- ----- ----- ----- ----- ----- ----- ----- ----- ----- ----- ----- ----- ----- ----- -- RUN DATE: 09/23 [place] [address] PAGE 1 RUN TIME: 1735 Speci men Inqui ry RUN USER: KELLYT ECH ----- ----- ----- ----- ----- ----- ----- ----- ----- ----- ----- ----- ----- ----- ----- ----- ----- ----- -- EMILY NT: YAIMA DUKE W 961 LOC: [facility] U #: [id number] AGE/S X: 58/F ROOM: RE09/[address]: Siomara Shell N.P. : [birth year]/09 BED: DIS: STATU S: REG REF TLOC: ----- ----- ----- ----- ----- ----- ----- ----- ----- ----- ----- ----- ----- ----- ----- ----- ----- ----- -- SPEC #: [id number] RECD: 09/19-2 211 STATU S: SOUT REQ #: [id number] NASRA: 09/19- SUBM DR: Siomara Shell [...] -- END OF REPOR T Not Available [facility] [address], [place], [address], 09/23/2013 17:36:13 09/20/19 14 09/26/2013 HPV DNA [...] rmed using the Aptim a HPV Assay ([employer]). Not Available [facility] [address], [place], [address], 09/26/2013 12:36:48 10/06/19 14 10/05/2013 ultra sound , pelvi c trans vagin al No observ ation record ed. ctallon [facility] (Imaging) [address], [place], [address], 10/27/2014 16:06:45 02/06/20 16 02/06/2016 DEXA, axial skele ton Henry white Name: RAIMUNDO DUKE Exam Date/T rosita: 1036 ------ ------ ------ ------ ------ ------ ------ ------ ------ ------ ------ ------ ------ -- Exam Number : [id number] RESPON KIERRA KAYE RETER: Marci Bailey M.D. - [facility] ID: [id number] EXAMIN ATION: BONE [...] Dictat ed: 2015 4:31 PM Report ID: [id number] Report ed By: MARCI BAILEY M.D. Yes [facility] (Radiology) [address], [place], [address], 02/14/2016 14:07:44 02/07/20 16 02/06/2016 bone densi ty No observ ation record ed. [facility] (Radiology) [address], [place], [address], 02/14/2016 14:07:44 Result Notes Documentation Provider Name and Address Organization Details Recorded Time Dexa, Axial Skeleton : Patient Name: KELLY DUKE Exam Date/Time: 02/06/16 1036 ----- Exam Number: [id number] RESPONSIBLE COPIER OPERATOR: Marci Bailey M.D. - [facility] ID: [id number] EXAMINATION: BONE DENSITY [...] sheets). Dictated: 02/06/2016 4:31 PM Report ID: [id number] Reported By: MARCI BAILEY M.D. Yes Siomara Shaffer NP [address] [place], [address], [facility] 02/14/2016 14:07:44 Problems Name Problem SNOMED Code Status Onset Date Resolution Date Notes Provider Name and Address Organization Details Recorded Time Osteopenia 605987098 Active 2 doses Reclast Siomara Shaffer NP [address] [place], [address], [facility] 6 15:54:17 Malignant tumor of breast 466394460 Active DCIS mastectomy and Tamoxifen Siomara Shaffer NP [address] [place], [address], [facility] 6 11:54:46 Depressive disorder 70045222 Active therapist and meds Siomara Shaffer NP [address] [place], [address], [facility] 6 11:54:46 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 Procedures Surgical History Date Name Laterality Status Provider Name and Address Organization Details Recorded Time 09/20/19 14 Endocervical Polyp Removal completed Siomara Shaffer NP [address] [place], [address], [facility] 09/19/2013 15:20:39 02/23/19 05 Mastectomy completed Christine Pastrana [facility] 09/19/2013 11:41:09 12/08/19 04 Hysteroscopy ablation completed Not Available [facility] 01/07/2011 05:09:26 02/23/18 83 Section completed Christinebetsy Pastrana [facility] 09/19/2013 11:45:16 Imaging Results None recorded. Procedure Notes None recorded. Medical Equipment None Reported. Allergies Allergen ID Allergen Name Allergen Category Reaction Reaction Severity Criticality Documentation Date Start Date Code Code System Note Provider Name and Address Organization Details Recorded Time 047447 wheat gluten extract food Not available Not available Not available 09/19/2013 28238 81 RxNorm Christine SolorioadoRaj abraham [facility] 4 11:32:26 201649 Toradol medicatio n Not available Not available Not available 09/19/2013 48463 RxNorm Christine SolorioadoRaj abraham [facility] 4 11:38:11 Medications Name [...] Updated DateTime 09/19/2013 170.18 cm 24 kg/m2 82668.06 9558 g 73 /min 108/76 mm[Hg] Christine martniez [facility] 09/19/2013 11:45:54 Date Recorded Body height Body mass index (BMI) Body weight Heart rate Systolic And Diastolic Provider Name and Address Organization Details Last Updated DateTime 10/27/2014 170.18 cm 25 kg/m2 67653.98 3015 g 91 /min 121/79 mm[Hg] Christine martinez [facility] 10/27/2014 15:34:23 Date Recorded Body height Body weight Body mass index (BMI) Heart rate Systolic And Diastolic Provider Name and Address Organization Details Last Updated DateTime 11/06/2015 170.18 cm 44668.57 5385 g 25.1 kg/m2 76 /min 129/84 mm[Hg] Jayde Adamson [place] Stefani [facility] 11/06/2015 11:22:00 Social History Question Answer Notes LastModified by Zample Details LastModified Time Tobacco Smoking Status Never Smoker ChristineMICHAELA Jasso [facility] 09/19/2013 11:33:54 What Type [...] Functional Status Question Answer Note LastModified by [employer] Mix Details LastModified Time What is your level of alcohol consumption? 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 [employer] ctallon Information not available 09/19/2013 Mental Status [...] SNOMED-CT Code Diagnosis ICD10 Code Diagnosis Note [id number] MD Christiano [address] [place] [address] 10/18/2003 11:36:17 10/18/2003 12:45:10 [id number] MD Christiano [address] [place] [address] 11/20/2003 15:25:00 11/20/2003 16:18:04 [id number] Gonzalez Yung MD [facility] [address] [place] [address] 12/08/2003 00:00:00 03/19/2010 03:30:32 [id number] MD [address] [place] [address] 03/14/2004 07:59:30 03/14/2004 07:59:43 [id number] Siomara Shaffer NP [facility] [address] [place] [address] 09/19/2013 11:04:09 09/19/2013 14:21:00 Gynecologic examination 57272267 Polyp of cervix 95980592 Abdominal bloating 019604757 [id number] Siomara Shaffer NP [facility] [address] [place] [address] 10/27/2014 15:26:17 10/31/2014 08:57:55 Gynecologic examination 90073206 Screening for malignant neoplasm of rectum 248762679 Malignant tumor of breast 372609051 [id number] Siomara Shaffer NP [facility] [address] [place] [address] 11/06/2015 11:18:14 11/06/2015 14:21:59 Gynecologic examination 04469317 Z01.419 Screening for malignant neoplasm of rectum 424958526 Z12.12 Health Concerns Section Related Observation LastModified by Organization Detai ls LastModified Time None Recorded Concern Status LastModified by Organization Details LastModified Time None Recorded Advance Directives Directive None Recorded Payers Insurance Date Sequence Insurance Name Policy Number Policy Pinto Covered Member ID Pinto Member ID Guarantor Name 10/08/2013 1 JENNIFER-MICHAELA (PPO) [id number] Jonathan Duke [id number] Kelly Duke 11/03/2015 1 [facility] ([facility] Kelly Duke [id number] Kelly Duke OBGyn Episode No OBEpisode recorded.
[2024-11-06 09:39] VITALS: BMI 33.3
[2024-11-07 08:30] VITALS: BP 148/86; PULSE 84; RESP 18; TEMP 36.4; O2SAT 98
--- NOTE | 2024-11-07 09:43 | P.OP_ITS ---
Operative Note Operative Note Date of Service: 11/07/24 Narrative: Preop diagnosis: 1. Left Carpal tunnel syndrome Postop diagnosis: same Procedure: 1. Left Carpal tunnel release Surgeon: Pati Brito MD Facilities Manager: None Anesthesia: local block using 1% lidocaine with epinephrine Findings: Thickened transverse carpal ligament. EBL: Less than 5 mL Specimens: None Complications: None Disposition: Brought to recovery room in stable condition Plan: Follow-up for 10-14 days for wound check and suture removal Indications: The patient is 69 years old, with left carpal tunnel syndrome that has been unresponsive to nonoperative management. The risks and benefits of operative treatment including but not limited to risk of damage to blood vessels, nerves, tendons, infection, persistent pain, persistent symptoms, or possible need for additional surgery were discussed with the patient and the patient wishes to proceed with surgery. Procedure: Once consent was obtained a local block was performed using a combination of 1% lidocaine with epinephrine. The patient was then brought back to the operating suite and placed on the operative table in supine position. The left upper extremity was prepped and draped in a standard surgical fashion. Once assured that we had a good block, a 2.0 cm longitudinal incision was made centered over the carpal tunnel. The incision was made through the skin to the subcutaneous tissues using a #15 blade. Dissection was made down to the level of the transverse carpal ligament with care being taken to protect the palmar cutaneous nerve. Once the transverse carpal ligament was clearly visualized, a longitudinal incision was made in the transverse carpal ligament 1st using a #15 blade, then using tenotomy scissors under direct visualization. Care was taken to look for and protect the motor branch of the median nerve when seen in this area. Once satisfied with our carpal tunnel release the wound was copiously irrigated with normal saline and hemostasis was obtained with a brief period of local pressure. The skin edges were reapproximated with some 5.0 nylon suture material and a sterile dressing was applied. The patient appears to have tolerated the procedure well and with no complicatio ns. All digits were well vascularized at the conclusion of the case.
--- NOTE | 2024-11-07 09:43 | MHC.SHP ---
Pre-Procedural Eval Section A - 24 Hr Update-Section A only Date of Service: 11/07/24 The patient is an INPATIENT: No Changes since office visit: No Cold of Flu in the past 2 weeks, No New Medical Problems, No Changes in Medication and No Patient answered all questions The patient has been examined within 24 hours of the surgical procedure. The History & Physical has been completed within 30 days and I have reviewed it.: Yes Section B - Complete if H&P > 30 days Chief Complaint: Carpal tunnel syndrome, left upper limb Allergies: Allergies Allergy/AdvReac Type Severity Reaction Status Date / Time gluten Allergy Mild Diarrhea Verified 09/13/24 13:45 Plan Diagnosis/Plan: Unchanged I have reviewed the history and physical and performed a pertinent physical examination on my patient. No changes have occurred unless specified. Time Spent With Patient Time: Total time managing care of this patient today ____ minutes.
[2024-11-07 11:56] VITALS: BP 140/66; PULSE 70; O2SAT 100
== END 2024-11-07 11:56 | disposition home or self-care (01) ==
PROVIDERS: PCP Internal Medicine; Visit Provider Orthopaedic Surgery
PROC: (CPT 64721; principal; 2024-11-07 10:10)
DX: G56.02 Carpal tunnel syndrome, left upper limb (principal); R20.0 Anesthesia of skin; R20.2 Paresthesia of skin; M79.642 Pain in left hand; M25.532 Pain in left wrist; E78.00 Pure hypercholesterolemia, unspecified; Z85.3 Personal history of malignant neoplasm of breast; Z90.11 Acquired absence of right breast and nipple; Z91.09 Other allergy status, other than to drugs and biological substances; Z98.890 Other specified postprocedural states; Z87.891 Personal history of nicotine dependence
CPT/HCPCS: 64721; J0165; J2003

== ENCOUNTER → 2024-11-07 08:20 | Outpatient (BNV) | payer MEDICARE, OTHER, SELFPAY | PROVIDERS: PCP Internal Medicine; Visit Provider Orthopaedic Surgery | DX: G56.02 Carpal tunnel syndrome, left upper limb (principal) | CPT/HCPCS: 64721 ==

== ENCOUNTER 2024-11-22 14:24 | Outpatient (AMB) | payer MEDICARE, OTHER, SELFPAY ==
--- OUTSIDE RECORDS SUMMARY | 2009-09-10 | XMS_ITS | Encounter Summary ---
Author Organization [facility] Address [address] [place] [address] Phone Care Team Providers Care Perioperative Tech Name Role Phone Unavailable Primary Care Provider Unavailabl e Encounter Details Date Type Department Care Team (Late st Contact Info) Description 09/10/2009 Hospital Encounter [facility],Outside Imaging [address] [place], [place] [phone] System, Provider Not In, [facility] [address] [address] Social History Tobacco Use Types Packs/Day Years Used Date Smoking Tobacco: Never Smokeless Tobacco: Never Alcohol Use Standard Drinks/Week Comments Yes 0 (1 standard drink = 0.6 oz pur e alcohol) infrequent Child or Family Care Answer Date Record ed Do you have problems with on e of the following making it difficult for you to work, study, or receive health care? No 12/22/2022 Education Answer Date Recorded Are you interested in more education? Not on renny e 06/20/2022 Are you concerned about learning? Not on file 06/20/2022 No 06/20/2022 No 06/20/2022 Food Answer Date Recorded Within the past 6 months we worried whether our food would run out before we got money to buy more. Never True 12/22/2022 Within the past 6 months the food we bought just didn't last and we didn't have enough money to get more. Never True Residential Stability Answer Date Recor ded What is your housing situation today? I have chon sing 12/22/2022 How many times have you move d in the past 12 months? Zero (I did not move) 12/22/2022 Paying for Meds Answer Date Recorded Do you have trouble paying for medicines? No 12/22/2022 Paying Utility Bills Answer Date Record ed Do you have trouble paying your heating or elect ricity bill? No 12/22/2022 Transportation Answer Date Recorded Has the lack of transportati on kept you from medical appointments or from getting medications? No 12/22/2022 Digital Access Answer Date Recorded No 12/22/2022 Yes 12/22/2022 Do you have reliable internet access at home? Ye s 12/22/2022 Do you have a device (e.g., phone, tablet, computer) with a working camera? Yes 12/22/2022 Intimate Partner Violence Answer Date R ecorded Are you denied basic needs s uch as food, clothing, or medical care? No 08/02/2024 In the past 12 months have y ou been in a relationship with a person who hurts, threatens, or tries to control you? No 08/02/2024 Are you denied basic needs s uch as food, clothing, or medical care? No 08/02/2024 In the past 12 months have y ou been in a relationship with a person who hurts, threatens, or tries to control you? No 08/02/2024 Comments No Sex and Gender Information Value Date Recorded Sex Assigned at Female 03/02/2017 9:35 AM EST Legal Sex Female 8:47 AM EDT Gender Identity Female 03/02/2017 9:35 AM EST Sexual Orientation Straight 03/02/2017 9: 35 AM EST documented as of this encounter Functional Status * Calculated C-SSRS Risk Score (Lifetime/Recent) Answer Date of Assessment Author No Risk Indicated 11/22/2023 12:00 PM EDT Humera Carter RN * [place] Suicide Severity Rating Scale (Screener/Recent Self-Report) Question Answer Date of Assessment Author 1. Wish to be (Past 1 Month) No 11/22/2023 12:00 PM EDT Abisai Parks, AASHISH 2. Non-Specific Active Suicidal Thoughts (Past 1 Month) No 11/22/2023 12:00 PM EDT Abisai Parks, AASHISH 6. Suicidal Behavior (Lifetime) No 11/22/2023 12:00 PM EDT Abisai Parks RN documented as of this encounter Plan of Treatment Upcoming Encounters Date Type Department Care Team (Late st Contact Info) Description 03/08/2025 12:45 PM EST Office Visit [facility] [address] [place] [address] 03/08/2025 12:45 PM EST Procedure visit [facility] [address] [place] [address] Anupam Montero MD [address] [place] [address] [email or web address] 04/20/2025 1:00 PM EST Procedure visit [facility] [address] [place] [address] 04/20/2025 1:15 PM EST Office Visit [facility] [address] [place] [address] Anupam Montero MD [address] [place] [address] [email or web address] documented as of this encounter Procedures Procedure Name Priority Date/Time Associated Diagnosis Comments BI MAMMOGRAM OUTSIDE (NO INTERPRETATION) Routine 09/10/2009 12:00 AM EDT documented in this encounter Results * Mammogram Outside (No Interpretation) (09/10/2009 12:00 AM EDT) Narrative SYSTEMGENERATED, DOCUMENTATION - 08/17/2017 1:27 PM EDT This study is for PACS storage only and not for interpretation. us Provider Not In System PhD IMG OUTSIDE IMAGING W /OUT INTERPRETATION Final Result documented in this encounter Visit Diagnoses Not on filedocumented in this encounter Additional Health Concerns Infection Onset Date Last Indicated Resolved Time CoV-Risk Comment:Per Ambulatory Triage Form 10/24/2021 10/24/202111/04 1:22 AM EDT documented as of this encounter Additional Source Comments The information contained in this document represents components of the legal health record. It is not the complete legal health record.[facility]
--- OUTSIDE RECORDS SUMMARY | 2009-09-12 | XMS_ITS | Encounter Summary ---
Author Organization [facility] Address [address] [place] [address] Phone Care Team Providers Care Farm Marketer Name Role Phone Unavailable Primary Care Provider Unavailabl e Encounter Details Date Type Department Care Team (Late st Contact Info) Description 09/12/2009 Hospital Encounter [facility],Outside Imaging [address] [place], [place] [phone] System, Provider Not In, [facility] [address] [address] Social History Tobacco Use Types Packs/Day Years [...] 12:00 PM EDT Humera Carter RN * [place] Suicide Severity Rating Scale (Screener/Recent Self-Report) Question [...] Description 03/08/2025 12:45 PM EST Office Visit [facility] [address] [place] [address] 03/08/2025 12:45 PM EST Procedure visit [facility] [address] [place] [address] Anupam Montero MD [address] [place] [address] [email or web address] 04/20/2025 1:00 PM EST Procedure visit [facility] [address] [place] [address] 04/20/2025 1:15 PM EST Office Visit [facility] [address] [place] [address] Anupam Montero MD [address] [place] [address] [email or web address] documented as of this encounter Procedures Procedure Name Priority Date/Time Associated Diagnosis Comments BI MAMMOGRAM OUTSIDE (NO INTERPRETATION) Routine 09/12/2009 12:00 AM EDT documented in this encounter Results * Mammogram Outside (No Interpretation) (09/12/2009 12:00 AM EDT) Narrative SYSTEMGENERATED, DOCUMENTATION - 08/17/2017 1:29 PM EDT This study is for PACS [...] It is not the complete legal health record.[facility]
--- OUTSIDE RECORDS SUMMARY | 2010-09-13 | XMS_ITS | Encounter Summary ---
Author Organization [facility] Address [address] [place] [address] Phone Care Team Providers Care German Teacher Name Role Phone Unavailable Primary Care Provider Unavailabl e Encounter Details Date Type Department Care Team (Late st Contact Info) Description 09/13/2010 Hospital Encounter [facility],Outside Imaging [address] [place], [place] [phone] System, Provider Not In, [facility] [address] [address] Social History Tobacco Use Types Packs/Day Years [...] 12:00 PM EDT Humera Carter RN * [place] Suicide Severity Rating Scale (Screener/Recent Self-Report) Question [...] Description 03/08/2025 12:45 PM EST Office Visit [facility] [address] [place] [address] 03/08/2025 12:45 PM EST Procedure visit [facility] [address] [place] [address] Anupam Montero MD [address] [place] [address] [email or web address] 04/20/2025 1:00 PM EST Procedure visit [facility] [address] [place] [address] 04/20/2025 1:15 PM EST Office Visit [facility] [address] [place] [address] Anupam Montero MD [address] [place] [address] [email or web address] documented as of this encounter Procedures Procedure Name Priority Date/Time Associated Diagnosis Comments BI MAMMOGRAM OUTSIDE (NO INTERPRETATION) Routine 09/13/2010 12:00 AM EDT documented in this encounter Results * Mammogram Outside (No Interpretation) (09/13/2010 12:00 AM EDT) Narrative SYSTEMGENERATED, DOCUMENTATION - 08/17/2017 1:19 PM EDT This study is for PACS [...] It is not the complete legal health record.[facility]
--- OUTSIDE RECORDS SUMMARY | 2011-09-15 | XMS_ITS | Encounter Summary ---
Author Organization [facility] Address [address] [place] [phone] Phone Care Team Providers Care American Indian Studies Professor Name Role Phone Unavailable Primary Care Provider Unavailabl e Encounter Details Date Type Department Care Team (Late st Contact Info) Description 09/15/2011 Hospital Encounter [facility],Outside Imaging [address] [place] [address] System, Provider Not In, [facility] [address] [address] Social History Tobacco Use Types Packs/Day Years [...] 12:00 PM EDT Humera Carter RN * [place] Suicide Severity Rating Scale (Screener/Recent Self-Report) Question [...] 03/08/2025 12:45 PM EST Office Visit [facility] [address] [place] [address] 03/08/2025 12:45 PM EST Procedure visit [facility] [address] [place] [address] Anupam Montero MD [address] [place] [address] [email or web address] 04/20/2025 1:00 PM EST Procedure visit [facility] [address] [place] [address] 04/20/2025 1:15 PM EST Office Visit [facility] [address] [place] [address] Anupam Montero MD [address] [place] [address] [employer] [email or web address] documented as of this encounter Procedures Procedure Name Priority Date/Time Associated Diagnosis Comments BI MAMMOGRAM OUTSIDE (NO INTERPRETATION) Routine 09/15/2011 12:00 AM EDT documented in this encounter Results * Mammogram Outside (No Interpretation) (09/15/2011 12:00 AM EDT) Narrative SYSTEMGENERATED, DOCUMENTATION - 08/17/2017 1:11 PM EDT This study is for PACS [...]
--- OUTSIDE RECORDS SUMMARY | 2012-09-15 | XMS_ITS | Encounter Summary ---
Author Organization [facility] Address [address] [place] [address] Phone Care Team Providers Care Composition Board Press Operator Name Role Phone Unavailable Primary Care Provider Unavailabl e Encounter Details Date Type Department Care Team (Late st Contact Info) Description 09/15/2012 Hospital Encounter [facility],Outside Imaging [address] [place], [place] [phone] System, Provider Not In, [facility] [address] [address] Social History Tobacco Use Types Packs/Day Years [...] 12:00 PM EDT Humera Carter RN * [place] Suicide Severity Rating Scale (Screener/Recent Self-Report) Question [...] Description 03/08/2025 12:45 PM EST Office Visit [facility] [address] [place] [address] 03/08/2025 12:45 PM EST Procedure visit [facility] [address] [place] [address] Anupam Montero MD [address] [place] [address] [email or web address] 04/20/2025 1:00 PM EST Procedure visit [facility] [address] [place] [address] 04/20/2025 1:15 PM EST Office Visit [facility] [address] [place] [address] Anupam Montero MD [address] [place] [address] [email or web address] documented as of this encounter Procedures Procedure Name Priority Date/Time Associated Diagnosis Comments BI MAMMOGRAM OUTSIDE (NO INTERPRETATION) Routine 09/15/2012 12:00 AM EDT documented in this encounter Results * Mammogram Outside (No Interpretation) (09/15/2012 12:00 AM EDT) Narrative SYSTEMGENERATED, DOCUMENTATION - 08/17/2017 1:12 PM EDT This study is for PACS [...] It is not the complete legal health record.[facility]
[2024-11-22 14:41] VITALS: BMI 33.3
--- NOTE | 2024-11-22 14:41 | A.OFFVIS_ITS ---
Vital Signs 11/22/24 14:41 Height 5 ft 5 in Weight 200 lb BMI 33.3 Intake Visit Reasons: PO LT CTR 11/07/24 AR Intake Note: Kelly is a 69 year old left hand dominant female who presents today post- operatively status post Left Carpal Tunnel Release performed by Dr. Brito on 11/07/24. Patient reports she is doing well with some tingling of the left thumb. Sutures removed and steri strips applied. Allergies gluten Allergy (Mild, Verified 11/22/24 14:41) Diarrhea HPI HPI PO LT CTR 11/07/24 AR: Details: Kelly is a 69 year old left hand dominant female who presents today post- operatively status post Left Carpal Tunnel Release performed by Dr. Brito on 11/07/24. Patient reports she is doing well with some tingling of the left thumb. Sutures removed and steri strips applied. 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 Review of Systems Const All systems reviewed & are unremarkable except as noted in HPI and below Physical Exam Vital Signs: BMI result Body Mass Index 33.3 Const General: no acute distress and alert Orientation/consciousness: patient oriented x3 Neuro General: patient oriented x3 Extrem Other: Evaluation of Left Upper Extremity: The patient is alert, oriented, and in no acute distress Neuro: Median, Ulnar, Radial nerves motor and sensory intact and sensation is normal to the tips of all digits, except for some tingling in the tip of the left thumb Normal sensation to the ulnar digital nerve distribution She reports that the sensation is improving more proximally in the thumb. Vascular: Cap refill brisk ROM: She can make a fist and extend all her digits Fracture site is non-tender Well approximated and well healing incision site noted of the volar left wrist over the carpal tunnel No erythema, ecchymosis, evidence of infection Psych Appearance: grossly normal Affect: normal affect Attitude: cooperative Assessment & Plan Assessment & Plan (1) Carpal tunnel syndrome of left wrist: Code(s): G56.02 - Carpal tunnel syndrome, left upper limb Category: Medical Plan 1. Status post left carpal tunnel release DOS 11/07/2024 Partial symptom resolution postoperatively Patient appears to be recovering well from her surgery Patient is educated about the typical recovery course Sutures removed, steroids applied No under water times one-week, 2 lb weight limit x2 weeks Patient may resume normal activity at that point Follow-up as needed Coding Level of Care Code Global (19397) Diagnoses Carpal tunnel syndrome of left wrist G56.02
--- OUTSIDE RECORDS SUMMARY | 2024-11-22 15:49 | XMS_ITS | Encounter Summary ---
Author Organization [facility] Address [address] [place] [address] Phone Care Team Providers Care Market Research Specialist Name Role Phone Franco, Arianne A MD Primary Care Provider [phone] Franco, Arianne A MD Unavailable [phone] Franco, Arianne A MD Unavailable [phone] Encounter Details Date Type Department Care Team (Late Contact Info) Description 08/08/2020 Transcribe Orders Virtual Department [address] [place] [address] Arianne Franco MD [address] [place] [address] [email or web address] Breast screening (Primary Dx) Social History Tobacco Use Types Packs/Day Years Used Date Smoking Tobacco: Former Cigarettes 0.3 6 1 976 - 1982 Smokeless Tobacco: Never Alcohol Use Standard Drinks/Week [...] Encounters Date Type Department Care Team (Late Contact Info) Description 03/08/2025 12:45 PM EST Office Visit [facility] [address] [place] [address] 03/08/2025 12:45 PM EST Procedure visit [facility] [place] [address] [place] [address] Anupam Montero MD [address] [place] [address] [email or web address] 04/20/2025 1:00 PM EST Procedure visit [facility] [place] [address] [place] [address] 04/20/2025 1:15 PM EST Office Visit [facility] [address] [place] [address] Anupam Montero MD [address] [place] [address] [email or web address] documented as of this encounter Results * BI MAMMOGRAM SCREENING WITH TOMOSYNTHESIS WITH CAD (LEFT) (11/08/2020 11:17 AM EDT) Anatomical Region Laterality Modality Breast Left, Breast Bilateral Left Ma mmography 11/08/2020 11:3 4 AM EDT Impressions 11/08/2020 11:36 AM EDT No findings worrisome for malignancy. Annual unilateral screening is recommended. BI-RADS CATEGORY: 1 - Negative. DENSITY: There are scattered fibroglandular densities. Narrative 11/08/2020 11:36 AM EDT COMPARISON: 09/10/2009 through 11/03/2019. Digital 3-D tomosynthesis with 2-D reconstructions in the CC and MLO view of the breast were obtained. Computer-aided detection system also utilized. The overall appearance is unchanged. No new mass, asymmetry, architectural distortion or worrisome calcifications have become apparent on this side. Procedure Note Israel Cruz MD - 11/08/2020 COMPARISON: 09/10/2009 through 11/03/2019. Digital 3-D tomosynthesis with 2-D reconstructions in the CC and MLO viewof the breast were obtained. Computer-aided detection system alsoutilized. The overall appearance is unchanged. No new mass, asymmetry, architectural distortion or worrisomecalcifications have become apparent on this side. IMPRESSION: No findings worrisome for malignancy. Annual unilateral screening isrecommended. BI-RADS CATEGORY: 1 - Negative. DENSITY: There are scattered fibroglandular densities. us Arianne Franco MD IMG MG EXAMS Final Result documented in this encounter Visit Diagnoses Diagnosis Breast screening- Primary Breast screening, unspecified Breast screening Breast screening, unspecified documented in this encounter Additional Health Concerns Infection Onset Date Last Indicated Resolved Time CoV-Risk Comment:Per Ambulatory Triage Form 10/24/2021 10/24/202111/04 1:22 AM EDT Assessment Noted Time PHQ-2 Depression Total Score: 0 07/30/19 21 7:54 PM EDT documented as of this encounter Care Teams Market Research Specialist Relationship Specialty Start Date End Date Arianne Franco MD [address] [place] [id number] [email or web address] PCP - General 12/11/16 Arianne Franco MD [address] [place] [id number] [email or web address] Historical LMR Provider 12/13/16 Arianne Franco MD [address] [place] [address] [email or web address] Insurance Assigned Provider 05/30/23 documented as of this encounter Additional Source Comments The information contained in this document represents components of the legal health record. It is not the complete legal health record.[facility]
--- OUTSIDE RECORDS SUMMARY | 2024-11-22 15:49 | XMS_ITS | Clinical Summary ---
Author Organization [facility] Address [address] [place] [address] Phone Care Team Providers Care Plant Health Manager Name Role Phone Franco, Arianne A MD Primary Care Provider Franco, Arianne A MD Unavailable [phone] Franco, Arianne A MD Unavailable [phone] Allergies Active Allergy Reactions Criticality Noted Date Comments Gluten 08/31/2018 Ketorolac Medium 02/27/2017 Uncontrollable shivering Medications loratadine (CLARITIN) 10 mg tablet Take 10 mg by mouth daily. Active finasteride (PROSCAR) 5 mg tablet Take 5 mg by mouth daily. Active aspirin 81 MG EC tablet Take 81 mg by mouth daily. Active cyanocobalamin , vitamin B-12, 500 MCG tablet Take 500 mcg by mouth daily. Active cholecalcifero l (VITAMIN D3) 5,000 unit tablet Take 1,000 Units by mouth daily. Active fluocinonide 0.05 % ointment Apply topically 2 (two) times a day. Active ZINC ACETATE ORAL Take by mouth. Active VITAMIN K2 ORAL Take by mouth. Active pimecrolimus (ELIDEL) 1 % cream APPLY TO SCALY AREAS ON SCALP TWICE A DAY 08/14/19 23 Active multivit-min/f errous fumarate (MULTI VITAMIN ORAL) Take by mouth. Active sertraline (ZOLOFT) 50 MG tabletIndicati ons:Medication refill TAKE 1 AND 1/2 TABLETS BY MOUTH DAILY 135 tablet 3 03/04/19 25 Active atorvastatin (LIPITOR) 10 MG tabletIndicati ons:Hyperlipid emia TAKE 1 TABLET BY MOUTH EVERY DAY 90 tablet 3 03/04/19 25 Active clotrimazole-b etamethasone (LOTRISONE) creamIndicatio ns:Candidal intertrigo APPLY TO AFFECTED AREA TWICE A DAY 45 g 07/05/19 25 Active gabapentin (NEURONTIN) 300 MG capsule Take 300 mg by mouth 3 (three) times a day. 07/26/19 25 Active ALPHAGAN P 0.1 % Drop Place 1 drop into the right eye 2 (two) times a day. Brand name medically necessary 10 mL 3 10/06/19 25 Active timolol (TIMOPTIC) 0.5 % ophthalmic solution Place 1 drop into the right eye daily. 10 mL 3 10/06/19 25 Active levothyroxine (SYNTHROID,LEV OTHROID) 25 MCG tablet TAKE 1 TABLET BY MOUTH EVERY MORNING 90 tablet 11/01/19 25 Active meloxicam (MOBIC) 15 MG tablet Take 1 tablet (15 mg total) by mouth daily. Take with food 90 tablet 11/01/19 25 Active LORazepam (ATIVAN) 0.5 MG tabletIndicati ons:Medication refill TAKE 1/2 TO 1 TABLET BY MOUTH DAILY NEEDED 30 tablet 11/15/19 25 Active meloxicam (MOBIC) 15 MG tablet Take 15 mg by mouth daily. 06/24/19 25 025 Discontinued(Re order) levothyroxine (SYNTHROID,LEV OTHROID) 25 MCG tablet Take 1 tablet (25 mcg total) by mouth every morning. 90 tablet 08/05/19 25 025 Discontinued LORazepam (ATIVAN) 0.5 MG tabletIndicati ons:Medication refill TAKE 1/2-1 TABLET BY MOUTH DAILY NEEDED 30 tablet 08/30/19 25 025 Discontinued Active Problems Problem Noted Date Diagnosed Date Tributary (branch) retinal v ein occlusion, right eye, with macular edema 08/02/2024 Anxiety with depression 08/02/2024 Class 1 obesity with serious comorbidity and body mass index (BMI) of 33.0 to 33.9 in adult 08/02/2024 Primary osteoarthritis of left hip 08/02/2024 Refractive error 04/24/2023 Malignant neoplasm of right breast in female, estrogen receptor positive, unspecified site of breast 12/22/2022 Assessment & Plan (02/10/2023 11:27 AM EST): Treated and stable Assessment & Plan (12/24/2022 10:07 AM EDT): Treated and followed Varicose veins of bilateral lower extremities with other complications 11/27/2022 Assessment & Plan (02/10/2023 11:27 AM EST): As mentioned we are going to perform a venous seal of that left great saphenous vein I will see the patient thereafter in follow-up Assessment & Plan (12/24/2022 10:07 AM EDT): As mentioned she has symptoms on both sides but the left lower extremity has more. We will perform a venous seal of the left great saphenous vein Assessment & Plan (11/27/2022 11:19 AM EDT): This patient has a bleeding varix in the right thigh and is a CEAP class V patient. At this time we will expedite a venous reflux study I will see her thereafter in follow-up. But more than likely we will end up performing at least 1 vein ablation. Anxiety 10/03/2022 10/03/2022 Assessment & Plan (02/10/2023 11:27 AM EST): Present but stable Assessment & Plan (11/27/2022 11:19 AM EDT): Present but controlled. 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 015 Dry eye syndrome 12/29/2011 10/03/2022 Encounters Date Type Department Care Team Description 11/11/2024 Refill [facility] [address] [place] [address] Arianne Franco MD Medication Refill 10/31/[address] [place] [address] Arianne Franco MD Medication Refill 10/18/2024 11:54 AM EDT - 10/18/2024 11:59 PM EDT Hospital Encounter [facility] [address] [place] [address] [place] [address] Arianne Franco MD Discharge Disposition: Home or Self Care 10/05/2024 1:00 PM EDT Office Visit [facility] [place] - [address] [place] [address] Anupam Montero MD Low-tension glaucoma, right eye, moderate stage (Primary Dx); Epiretinal membrane (ERM) of right eye; PVD (posterior vitreous detachment), right eye 08/28/[address] [place] [address] Arianne Franco MD Medication Refill from Last 3 Months Immunizations Immunization Administration Dates Next Due COVID-19 (Pre-12/15) Moderna Vaccine, Bivalent 6mo+ 11/01/2021 COVID-19 (Pre-12/15) Moderna Vaccine, mRNA, PF 05/15/2020,04/18/2020 Influenza High-Dose Quadriva lent Preservative Free IM 11/26/2021,10/25/2020,10/15/2019 Influenza High-Dose Trivalen t Preservative Free IM 12/25/2023 Influenza Quadrivalent Adjuv anted Preservative Free IM 11/17/2022 Influenza Quadrivalent Prese rvative Free IM 11/08/2018,11/04/2017 Influenza, Unspecified Formulation 11/25,11/09/2014,10/06/2013,10/22 Pneumococcal conjugate PCV13 10/29/2019 Pneumococcal conjugate, PCV 7 06/28/2008 Pneumococcal polysaccharide PPSV23 12/12/2020,,06/28/2008 RSV Vaccine (monovalent, adjuvanted) 12/04/2022 Rabies-im 02/04/2016, 6,01/24/2016,01/16 Td (adult),2 Lf Tetanus Toxo id, PF, Adsorbed 08/16/2009 Tdap 09/18/2019,11/26/2015 Zoster live 04/23/2014 Zoster recombinant 03/29/2020,10/15/2019 Family History Medical History Relation Comments Arthritis Brother Chronic Lymphocytic Leukemia Father Glaucoma Father Breast cancer Maternal Grandmother Breast cancer Mother Colon cancer Paternal Aunt Arthritis Sister Breast cancer Sister Cataracts Neg Hx Macular degeneration Neg Hx Relation Status Comments Brother Alive Father Maternal Grandmother Mother Paternal Aunt Sister Alive Social History Tobacco Use Types Packs/Day Years Used Date Smoking Tobacco: Never Smokeless Tobacco: Never Tobacco Cessation:Counseling Given: Not Answered Alcohol Use Standard Drinks/Week Comments Yes 0 [...] Orientation Straight 03/02/2017 9: 35 AM EST Last Filed Vital Signs Vital Sign Reading Time Taken Comments Blood Pressure 128/70 08/02/2024 2:10 PM EDT Pulse 82 08/02/2024 2:10 PM EDT Temperature 36 C (96.8 F) 11/22/2023 4:50 PM EDT Respiratory Rate 20 11/22/2023 4:50 PM EDT Oxygen Saturation 97% 08/02/2024 2:10 PM EDT Inhaled Oxygen Concentration - - Weight 93 kg (205 lb) 08/02/2024 2:10 PM EDT Height 165.6 cm (5' 5.2 ) 08/02/2024 2:10 PM EDT Body Mass Index 33.91 08/02/2024 2:10 PM EDT Plan of Treatment Upcoming Encounters Date Type Department Care Team (Late st Contact Info) Description 03/08/2025 12:45 PM EST Office Visit [facility] [place] [facility] [place] [address] [place] [address] 03/08/2025 12:45 PM EST Procedure visit [facility] [place] [facility] [place] [address] [place] [address] Anupam Montero MD [address] [place] [address] [email or web address] 04/20/2025 1:00 PM EST Procedure visit [facility] [place] [facility] [place] [address] [place] [address] 04/20/2025 1:15 PM EST Office Visit [facility] [address] [place] [address] Anupam Montero MD [address] [place] [address] [email or web address] Health Maintenance Due Date Last Done Comments FIT TEST 1999 FOBT 1999 SIGMOIDOSCOPY 1999 VIRTUAL COLONOSCOPY 1999 COLONOSCOPY 08/24/2024 08/24/2014 INFLUENZA VACCINE (#1) 2024 , 11/17/2022, 11/17/2022, Additional history exists COVID-19 VACCINE ( season) 2024 12/25/2023, 09/19/2023, 11/24/2022, Additional history exists HEPATITIS C SCREENING 12/22/2024 Postpo enrique from 1972 (Patient Declines / Guardian Declines) DEPRESSION SCREENING 08/02/2025 08/02/2024 TSH LEVEL 10/18/2025 10/18/2024, 07/24, 01/19/2023, Additional history exists MAMMOGRAM 02/24/2026 02/25/2024, 09/25, 10/23/2016, Additional history exists COLOGUARD 08/12/2027 08/11/2024 COLORECTAL CANCER SCREENING 08/12/2027 LIPID PANEL 03/11/2029 03/11/2024, 12/25, 01/19/2023, Additional history exists Adult Td,Tdap Booster 09/17/2029 09/18/2019 , 11/26/2015, 08/16/2009 ZOSTER VACCINES Completed 03/29/2020, 09/24, 04/23/2014 PNEUMOCOCCAL VACCINES (50+ years) Completed 12/12/2020, 07/31/2020, 10/29/2019, Additional history exists RSV VACCINE Completed 12/04/2022 OSTEOPOROSIS SCREENING INITIAL (ONE-TIME) Completed 08/12/2023, 08/30/2020 SMOKING STATUS SCREENING (Once After 26 Yrs) Completed 10/05/2024 HEPATITIS A VACCINES Aged Out No long er eligible based on patient's age to complete this topic HIB VACCINES Aged Out No longer eligi ble based on patient's age to complete this topic MENINGOCOCCAL VACCINES (ACWY) Aged Out No longer eligible based on patient's age to complete this topic MENINGOCOCCAL VACCINES (B) Aged Out N o longer eligible based on patient's age to complete this topic Medical Devices Not on file Procedures Procedure Name Priority Date/Time Associated Diagnosis Comments TSH WITH REFLEX Routine 10/18/2024 11:54 AM EDT Acquired hypothyroidism OCT, OPTIC NERVE - OU - BOTH EYES Routine 10/05/2024 1:51 PM EDT Low-tension glaucoma, right eye, moderate stage LIPID PANEL Routine 03/11/2024 10:37 AM EST Hyperlipidemia BD DXA AXIAL (SPINE) WITH HIP Routine 08/12/2023 1:20 PM EDT Osteopenia, unspecified location BI MAMMOGRAM OUTSIDE (NO INTERPRETATION) Routine 10/23/2016 12:00 AM EDT HM COLONOSCOPY FOR RESULT ENTRY ONLY Routine 08/24/2014 from Last 3 Months or Most Recently Relevant to Health Maintenance Results * TSH with reflex (10/18/2024 11:54 AM EDT) TSH 2.04 0.27 - 4.20 uIU/mL [facility] Blood 10/18/2024 11:5 4 AM EDT 10/18/2024 11:58 AM EDT us Arianne Franco MD LAB BLOOD ORDERABLES Final Re sult Performing Organization Address [facility] Co de Phone Number [address] [address] * OCT, Optic Nerve - OU - Both Eyes - (10/05/2024 1:51 PM EDT) Other Narrative CAMER[facility] - 10/05/2024 1:51 PM EDT See clinic note for results us Anupam Montero MD OPHTHALMOLOGY IMAGING Final Result Performing Organization Address [facility] Co de Phone Number [facility] * (ABNORMAL) Lipid panel (03/11/2024 10:37 AM EST) HDL 70 mg/dL [facility] Comment: Interpretation <40 mg/dL: Low HDL cholesterol (major risk factor for CHD) Greater than or equal to 60 mg/dL: High HDL cholesterol ( negative risk factor for CHD) HDL - cholesterol is affected by a number of factors, e.g. smoking, excerise, hormones, sex and age. CHOLESTEROL 199 0 - 240 mg/dL [facility] TRIGLYCERIDES 117 30 - 160 mg/dL [facility] LDL 106 50 - 129 mg/dL [facility] Comment: LDL levels in terms of risk for coronary heart disease: <100 mg/dL: Optimal 100-129 mg/dL: Near or above optimal 130-159 mg/dL: Borderline high 160-189 mg/dL: High >190 mg/dL: Very High CARDIAC RISK RATIO 2.8(L) 3.3 - 4.4 [facility] Blood 03/11/2024 10:3 7 AM EST 03/11/2024 10:41 AM EST us Arianne A Salvador MCCONNELL LAB BLOOD ORDERABLES Final Re sult [facility] [address] [place] [address] * BD DXA AXIAL (SPINE) WITH HIP (08/12/2023 1:20 PM EDT) Anatomical Region Laterality Modality Bone Density Bone Density 08/13/2023 2:19 PM EDT Impressions 08/13/2023 5:20 PM EDT Decreased bone mineral density continues to meet criteria for osteopenia based upon bone mineral density in the lumbar spine and left hip. There is an increase in bone mineral density of 1.6% in the lumbar spine and 2.0% in the left total hip relative to the baseline study. ATTESTATION: I, Jesus Rodriguez as teaching physician, have reviewed the images for this case and if necessary edited the report originally created by Sam Atkinson. Narrative 08/13/2023 5:20 PM EDT BD DXA AXIAL (SPINE) WITH HIP INDICATION: Postmenopausal estrogen deficiency. Follow-up osteopenia. COMPARISON: Baseline study 08/30/2020. Evaluation of the lumbar spine and left hip are obtained and appears technically adequate. The lumbar spine from L1 through L4 discloses a total bone mineral density of 0.915 g/cm2 T-score: -1.2 Z-Score: 0.9 WHO Classification: Osteopenia Change from baseline study: 1.6% The left hip (total) has a total bone mineral density of 0.800 g/cm2 T-score: -1.2 Z-Score: 0.3 WHO Classification: Osteopenia Change from baseline study: 2.0% The left hip (neck) has a total bone mineral density of 0.670 g/cm2 T-score: -1.6 Z-Score: 0.1 FRAX:10-Year Fracture Risk Major Osteoporotic Fracture: 9.7% Hip Fracture: 1.4% Procedure Note Jesus Rodriguez MD - 08/13/2023 BD DXA AXIAL (SPINE) WITH HIP INDICATION: Postmenopausal estrogen deficiency. Follow-up osteopenia. COMPARISON: Baseline study 08/30/2020. Evaluation of the lumbar spine and left hip are obtained and appearstechnically adequate. The lumbar spine from L1 through L4 discloses a total bone mineral densityof 0.915 g/cm2 T-score: -1.2 Z-Score: 0.9 WHO Classification: Osteopenia Change from baseline study: 1.6% The left hip (total) has a total bone mineral density of 0.800 g/cm2 T-score: -1.2 Z-Score: 0.3 WHO Classification: Osteopenia Change from baseline study: 2.0% The left hip (neck) has a total bone mineral density of 0.670 g/cm2 T-score: -1.6 Z-Score: 0.1 FRAX:10-Year Fracture Risk Major Osteoporotic Fracture: 9.7% Hip Fracture: 1.4% IMPRESSION: Decreased bone mineral density continues to meet criteria for osteopeniabased upon bone mineral density in the lumbar spine and left hip. There isan increase in bone mineral density of 1.6% in the lumbar spine and 2.0%in the left total hip relative to the baseline study. ATTESTATION: I, Jesus Rodriguez as teaching physician, have reviewed theimages for this case and if necessary edited the report originally createdby Sam Atkinson. us Arianne A Salvador MCCONNELL IMG BD BONE DENSITY DEXA Altagracia l Result * Mammogram Outside (No Interpretation) (10/23/2016 12:00 AM EDT) Narrative SYSTEMGENERATED, DOCUMENTATION - 08/17/2017 1:20 PM EDT This study is for PACS storage only and not for interpretation. us Provider Not In System PhD IMG OUTSIDE IMAGING W /OUT INTERPRETATION Final Result * COLONOSCOPY FOR RESULT ENTRY ONLY (08/24/2014) Colonoscopy [facility] us Historical Provider HEALTH MAINTENANCE Final Result from Last 3 Months or Most Recently Relevant to Health Maintenance Insurance MEDICARE PART A & B [facility] MEDICARE ENHANCE SUPPLEMENT MEDICARE PART A & B [facility] MEDICARE ENHANCE SUPPLEMENT MEDICARE PART A & B [facility] MED[facility] ENHANCE SUPPLEMENT MEDICARE PART A & B [facility] MEDICARE ENHANCE SUPPLEMENT MEDICARE PART A & B [facility] MEDICARE ENHANCE SUPPLEMENT MEDICARE PART A & B [facility] MEDICARE ENHANCE SUPPLEMENT MEDICARE PART A & B [facility] MEDICARE ENHANCE SUPPLEMENT MEDICARE PART A & B [facility] MEDICARE ENHANCE SUPPLEMENT MEDICARE PART A & B [facility] MEDICARE ENHANCE SUPPLEMENT MEDICARE PART A & B [facility] MEDICARE ENHANCE SUPPLEMENT Care Teams Plant Health Manager Relationship Specialty Start Date End Date Arianne Franco MD [address] [place] [address], [address] [place] [address] PCP - General 12/11/16 Arianne Franco MD [address] [place] [address], [address] [place] [address] [email or web address] Historical LMR Provider 12/13/16 Arianne Franco MD [address] [place] [address], [address] [place] [address] [email or web address] Insurance Assigned Provider 05/30/23 Additional Source Comments The information contained in this document represents components of the legal health record. It is not the complete legal health record.[facility]
--- OUTSIDE RECORDS SUMMARY | 2024-11-22 15:49 | XMS_ITS | Encounter Summary ---
Author Organization [facility] Address [address] [place] [address] Phone Care Team Providers Care Machine Striper Name Role Phone Franco, Arianne A MD Primary Care Provider [phone] Franco, Arianne A MD Unavailable [phone] Franco, Arianne A MD Unavailable [phone] Encounter Details Date Type Department Care Team (Latest Contact Info) Description 01/20/2023 Ancillary Orders [facility] [address] [facility] [address] 3rd Floor, [address] [place], [place] [id number] Leland Diaz DO [address] [facility] [address] [place] [address] [id number] [email or web address] Varicose veins of both lower extremities with complications; Venous insufficiency Social History Tobacco Use Types Packs/Day Years Used Date Smoking Tobacco: Never Smokeless Tobacco: Never Alcohol Use Standard Drinks/Week Comments Yes 3 (1 standard drink = 0.6 oz pur e alcohol) Child or Family Care Answer Date Record [...] computer) with a working camera? Yes 12/22/2022 Comments No Sex and Gender Information Value [...] 12:45 PM EST Office Visit [facility] [address] [place] [address] 03/08/2025 12:45 PM EST Procedure visit [facility] [place] [address] [place] [address] Anupam Montero MD [address] [place] [address] [email or web address] 04/20/2025 1:00 PM EST Procedure visit [facility] [place] [address] [place] [address] 04/20/2025 1:15 PM EST Office Visit [facility] [place] [address] [place] [address] Anupam Montero MD [address] [place] [address] [email or web address] documented as of this encounter Results * ENDOVENOUS ABLATION CHEMICAL ADHESIVE (RIGHT) INITIAL (01/20/2023 11:36 AM EST) Anatomical Region Laterality Modality Hip Right, Thigh Right, Knee Right, Leg Right, Ankle Right, Foot Right Ultrasound us Leland Diaz DO CV US VASCULAR Final Result documented in this encounter Visit Diagnoses Diagnosis Varicose veins of both lower extremities with complications Venous insufficiency Unspecified venous (peripheral) insufficiency documented in this encounter Additional Health Concerns Assessment Noted Time PHQ-2 Depression Total Score: 0 12/23/19 23 1:42 PM EDT documented as of this encounter Care Teams Machine Striper Relationship Specialty Start Date End Date Arianne Franco MD [address] [place] [address] [email or web address] PCP - General 12/11/16 Arianne Franco MD [address] [place] [address] [email or web address] Historical LMR Provider 12/13/16 Arianne Franco MD [address] [place] [address] [email or web address] Insurance Assigned Provider 05/30/23 documented as of this encounter Additional Source Comments The information contained in this document represents components of the legal health record. It is not the complete legal health record.[facility]
--- OUTSIDE RECORDS SUMMARY | 2024-11-22 15:49 | XMS_ITS | Encounter Summary ---
Author Organization [facility] Address [address] [address] [place] [address] Phone Care Team Providers Care Restoration Ecologist Name Role Phone Franco, Arianne A MD Primary Care Provider [phone] Franco, Arianne A MD Unavailable [phone] Franco, Arianne A MD Unavailable Encounter Details Date Type Department Care Team (Late st Contact Info) Description 11/03/2019 Ancillary Orders [facility] [address] [place] [address] Arianne Franco MD [address] [place] [address], 2[address] [place] [address] [email or web address] Breast cancer screening by mammogram Social History [...] Description 03/08/2025 12:45 PM EST Office Visit [facility] - [address] [place] [address] 03/08/2025 12:45 PM EST Procedure visit [facility] [place] [address] [place] [address] Anupam Montero MD [address] [place] [address] 04/20/2025 1:00 PM EST Procedure visit [facility] [place] [address] [place] [address] 04/20/2025 1:15 PM EST Office Visit [facility] [address] [place] [address] Anupam Montero MD [address] [place] [address] documented as of this encounter Visit Diagnoses Diagnosis Breast cancer screening by mammogram documented in this encounter Additional Health Concerns Infection Onset Date Last Indicated Resolved Time CoV-Risk Comment:Per Ambulatory Triage Form 10/24/2021 10/24/202111/04 1:22 AM EDT Assessment Noted Time PHQ-2 Depression Total Score: 0 09/01/19 9:57 AM EDT documented as of this encounter Care Teams Restoration Ecologist Relationship Specialty Start Date End Date Arianne Franco MD [address] [place] [address] PCP - General 12/11/16 Arianne Franco MD [address] [place] [address] Historical LMR Provider 12/13/16 Arianne Franco MD [address] [place] [address] [email or web address] Insurance Assigned Provider 05/30/23 documented as of this encounter Additional Source Comments The information contained in this document represents components of the legal health record. It is not the complete legal health record.[facility]
--- OUTSIDE RECORDS SUMMARY | 2024-11-22 15:49 | XMS_ITS | Encounter Summary ---
Author Organization [facility] Address [address] [facility] [address] [place] [address] Phone Care Team Providers Care Director Of Resource Development Name Role Phone Franco, Arianne A MD Primary Care Provider Franco, Arianne A MD Unavailable [phone] Franco, Arianne A MD Unavailable [phone] Encounter Details Date Type Department Care Team (Late st Contact Info) Description 11/03/2019 Ancillary Orders [facility] [address] [place] [address] Arianne Franco MD [address] [place] [address], 2nd [place] [address] [email or web address] Breast cancer screening by mammogram Social History [...] Description 03/08/2025 12:45 PM EST Office Visit [facility] - [address] [place] [address] 03/08/2025 12:45 PM EST Procedure visit [facility] [place] [address] [place] [address] Anupam Montero MD [address] [place] [address] [email or web address] 04/20/2025 1:00 PM EST Procedure visit [facility] [place] [address] [place] [address] 04/20/2025 1:15 PM EST Office Visit [facility] [address] [facility] [facility] [address] [facility] [address] [place] [address] Anupam Montero MD [address] [place] [address] [email or web address] documented as of this encounter Results * [...] tomosynthesis and CAD History: Right mastectomy in 2005 for breast cancer TECHNIQUE: Unilateral left full-field [...] tomosynthesis and CAD History: Right mastectomy in 2005 for breast cancer TECHNIQUE: Unilateral left full-field [...] Negative. DENSITY: There are scattered fibroglandular densities. Arianne Franco MD IMG MG EXAMS Final [...] documented as of this encounter Care Teams Director Of Resource Development Relationship Specialty Start Date End Date Arianne Franco MD [address] [place] [address] [email or web address] PCP - General 12/11/16 Arianne Franco MD [address] [address] [email or web address] Historical LMR Provider 12/13/16 Arianne Franco MD [address] [place], [place] [address], [place] [address] [email or web address] Insurance Assigned Provider 05/30/23 documented as of this encounter Additional Source Comments The information contained in this document represents components of the legal health record. It is not the complete legal health record.[facility]
--- OUTSIDE RECORDS SUMMARY | 2024-11-22 15:49 | XMS_ITS | Encounter Summary ---
Author Organization [facility] Address [address] [facility] [address] [place] [address] Phone Care Team Providers Care Chiropractic Physician Name Role Phone Franco, Arianne A MD Primary Care Provider Franco, Arianne A MD Unavailable [phone] Franco, Arianne A MD Unavailable [phone] Franco, Arianne A MD Unavailable Encounter Details Date Type Department Care Team (Late st Contact Info) Description 06/02/2018 Ancillary Orders Virtual Department [address] [place] [address] Arianne Franco MD [address] [facility], 2nd [place] [address] Breast screening Social History Tobacco Use Types Packs/Day Years [...] Description 03/08/2025 12:45 PM EST Office Visit [facility] [place] [address] [place] [address] 03/08/2025 12:45 PM EST Procedure visit [facility] [place] [address] [place] [address] Anupam Montero MD [address] [place] [address] [email or web address] 04/20/2025 1:00 PM EST Procedure visit [facility] [place] [address] [place] [address] 04/20/2025 1:15 PM EST Office Visit [facility] [address] [place] [address] Anupam Montero MD [address] [place] [address] [email or web address] documented as of this encounter Results * BI MAMMOGRAM SCREENING WITH TOMOSYNTHESIS WITH CAD (LEFT) (11/01/2018 11:20 AM EDT) Anatomical Region Laterality Modality Breast Left, Breast Bilateral Left Ma mmography 11/01/2018 11:4 8 AM EDT Impressions 11/01/2018 11:49 AM EDT No mammographic evidence of malignancy. Recommend routine annual surveillance. BI-RADS CATEGORY: 1 - Negative. DENSITY: There are scattered fibroglandular densities. POS - CDHMAMA Narrative 11/01/2018 11:49 AM EDT 63-year-old female with no current breast symptoms. History of right breast cancer and mastectomy in 2005. Comparison made to previous on 10/28/2017 and as far back as 09/15/2011. Interpretation made in conjunction with computer-aided detection and tomosynthesis. There are scattered areas of fibroglandular density. There are no suspicious masses, areas of architectural distortion, or suspicious clusters of microcalcifications. Procedure Note Yesenia Quinn MD - 11/01/2018 63-year-old female with no current breast symptoms. History of rightbreast cancer and mastectomy in 2005. Comparison made to previous on10/28/2017 and as far back as 09/15/2011. Interpretation made inconjunction with computer-aided detection and tomosynthesis. There are scattered areas of fibroglandular density. There are no suspicious masses, areas of architectural distortion, orsuspicious clusters of microcalcifications. IMPRESSION: No mammographic evidence of malignancy. Recommend routine annualsurveillance. BI-RADS CATEGORY: 1 - Negative. DENSITY: There are scattered fibroglandular densities. POS - CDHMAMA us Arianne Franco MD IMG MG EXAMS Final Result documented in this encounter Visit Diagnoses Diagnosis Breast screening Breast screening, unspecified Breast screening Breast screening, unspecified documented in this encounter Additional Health Concerns Infection Onset Date Last Indicated Resolved Time CoV-Risk Comment:Per Ambulatory Triage Form 10/24/2021 10/24/202111/04 1:22 AM EDT Assessment Noted Time PHQ-2 Depression Total Score: 0 02/27/19 18 1:24 PM EST documented as of this encounter Care Teams Chiropractic Physician Relationship Specialty Start Date End Date Arianne Franco MD [address] [place] [address] PCP - General 12/11/16 Arianne Franco MD [address] [place] [address] [email or web address] Historical LMR Provider 12/13/16 Arianne Franco MD [address] [place] [phone] Insurance Assigned Provider 05/29/18 Arianne Franco MD [address] [place] [address], 2nd [place] [address] Insurance Assigned Provider 05/30/23 documented as of this encounter Additional Source Comments The information contained in this document represents components of the legal health record. It is not the complete legal health record.[facility]
--- OUTSIDE RECORDS SUMMARY | 2024-11-22 15:49 | XMS_ITS | Encounter Summary ---
Author Organization [facility] Address [address] [place] [address] [place] [address] Phone Care Team Providers Care Electrophysiology Technician Name Role Phone Franco, Arianne A MD Primary Care Provider [phone] Franco, Arianne A MD Unavailable [phone] Franco, Arianne A MD Unavailable [phone] Encounter Details Date Type Department Care Team (Late st Contact Info) Description 08/15/2022 Procedure Pass [facility] - [address] [place] [address] Social History Tobacco Use Types Packs/Day Years Used Date Smoking Tobacco: Never Smokeless Tobacco: Never Alcohol Use Standard Drinks/Week Comments Yes 3 (1 standard drink = 0.6 oz pur e alcohol) Education Answer Date Recorded Are you interested in more education? Not on renny e 06/20/2022 Are you concerned about learning? Not on file 06/20/2022 No 06/20/2022 No 06/20/2022 Digital Access Answer Date Recorded No 07/21/2022 No 07/21/2022 Reliable internet access at home? Not on file 07/21/2022 Device with a working camera? Not on file Comments No Sex and Gender Information Value [...] 03/08/2025 12:45 PM EST Office Visit [facility] [place] [facility] [place] [address] [place] [address] 03/08/2025 12:45 PM EST Procedure visit [facility] [place] [facility] [place] [address] [place] [address] Anupam Montero MD [address] [place] [address] [email or web address] 04/20/2025 1:00 PM EST Procedure visit [facility] [place] [facility] [place] [address] [place] [address] 04/20/2025 1:15 PM EST Office Visit [facility] [place] [facility] [place] [address] [place] [address] Anupam Montero MD [address] [place] [address] [email or web address] documented as of this encounter Visit Diagnoses Not on filedocumented in this encounter Additional Health Concerns Assessment Noted Time PHQ-2 Depression Total Score: 0 12/23/19 23 1:42 PM EDT documented as of this encounter Care Teams Electrophysiology Technician Relationship Specialty Start Date End Date Arianne Franco MD [address] [place] [address] [email or web address] PCP - General 12/11/16 Arianne Franco MD [address] [place] [address] [email or web address] Historical LMR Provider 12/13/16 Arianne Franco MD [address] [place] [address] [email or web address] Insurance Assigned Provider 05/30/23 documented as of this encounter Additional Source Comments The information contained in this document represents components of the legal health record. It is not the complete legal health record.[facility]
--- OUTSIDE RECORDS SUMMARY | 2024-11-22 15:49 | XMS_ITS | Encounter Summary ---
Author Organization [facility] Address [address] [place] [address] [place] [address] Phone Care Team Providers Care Contribution Solicitor Name Role Phone Franco, Arianne A MD Primary Care Provider [phone] Franco, Arianne A MD Unavailable [phone] Franco, Arianne A MD Unavailable [phone] Franco, Arianne A MD Unavailable [phone] Encounter Details Date Type Department Care Team (Late st Contact Info) Description 08/17/2017 Ancillary Orders [facility] [address] [place], [place] [id number] System, Provider Not In, [place] [address] Social History Tobacco Use Types Packs/Day Years Used Date Smoking Tobacco: Never Smokeless Tobacco: Never Alcohol Use Standard Drinks/Week Comments Yes 4 (1 standard drink = 0.6 oz pur e alcohol) Comments Unknown Sex and Gender Information Value Date Recorded Sex Assigned at Female 03/02/2017 9:35 AM EST Legal Sex Female 8:47 AM EDT Gender Identity Female 03/02/2017 9:35 AM EST Sexual Orientation Straight 03/02/2017 9: 35 AM EST documented as of this encounter Plan of Treatment Upcoming Encounters Date Type Department Care Team (Late Contact Info) Description 03/08/2025 12:45 PM EST Office Visit [facility] - [address] [place] [address] 03/08/2025 12:45 PM EST Procedure visit [facility] [place] [address] [place] [address] Anupam Montero MD [address] [place] [address] [email or web address] 04/20/2025 1:00 PM EST Procedure visit [facility] [place] [address] [place] [address] 04/20/2025 1:15 PM EST Office Visit [facility] [place] [address] [place] [address] Anupam Montero MD [address] [place] [address] [email or web address] documented as of this encounter Results * Mammogram Outside (No [...] documented as of this encounter Care Teams Contribution Solicitor Relationship Specialty Start Date End Date Arianne Franco MD [address] [place] [address] [email or web address] PCP - General 12/11/16 Arianne Franco MD [address] [place] [address] [email or web address] Historical LMR Provider 12/13/16 Arianne Franco MD [address] [place] [address] [email or web address] Insurance Assigned Provider 05/29/18 Arianne Franco MD [address] [place] [address] [email or web address] Insurance Assigned Provider 05/30/23 documented as of this encounter Additional Source Comments The information contained in this document represents components of the legal health record. It is not the complete legal health record.[facility]
--- OUTSIDE RECORDS SUMMARY | 2024-11-22 15:49 | XMS_ITS | Encounter Summary ---
Author Organization [facility] Address [address] [facility] [address] [place] [address] Phone Care Team Providers Care Bottom Steep Tender Name Role Phone Franco, Arianne A MD Primary Care Provider [phone] Franco, Arianne A MD Unavailable [phone] Franco, Arianne A MD Unavailable [phone] Encounter Details Date Type Department Care Team (Late st Contact Info) Description 09/01/2019 Ancillary Orders [facility] [address] [place] [address] Arianne Franco MD [address] [place] [address], 2nd [place] [address] [email or web address] Breast cancer screening by mammogram Social History [...] Visit [facility] - [address] [place] [address] 03/08/2025 12:45 PM EST Procedure visit [facility] [place] [address] [place] [address] Anupam Montero MD [address] [place] [address] [email or web address] 04/20/2025 1:00 PM EST Procedure visit [facility] [place] [address] [place] [address] 04/20/2025 1:15 PM EST Office Visit [facility] [address] [facility] [address] [place] [address] Anupam Montero MD [address] [place] [address] [email or web address] documented as of this encounter Visit Diagnoses Diagnosis Breast cancer screening by mammogram documented in this encounter Additional Health Concerns Infection Onset Date Last Indicated Resolved Time CoV-Risk Comment:Per Ambulatory Triage Form 10/24/2021 10/24/202111/04 1:22 AM EDT Assessment Noted Time PHQ-2 Depression Total Score: 0 09/01/19 9:57 AM EDT documented as of this encounter Care Teams Bottom Steep Tender Relationship Specialty Start Date End Date Arianne Franco MD [address] [place] [address] [email or web address] PCP - General 12/11/16 Arianne Franco MD [address] [place] [address] [email or web address] Historical LMR Provider 12/13/16 Arianne Franco MD [address] [place] [address] [email or web address] Insurance Assigned Provider 05/30/23 documented as of this encounter Additional Source Comments The information contained in this document represents components of the legal health record. It is not the complete legal health record.[facility]
--- OUTSIDE RECORDS SUMMARY | 2024-11-22 15:49 | XMS_ITS | Encounter Summary ---
Author Organization [facility] Address [address] [facility] [address] [place] [address] Phone Care Team Providers Care Senior Maintenance Technician Name Role Phone Franco, Arianne A MD Primary Care Provider [phone] Franco, Arianne A MD Unavailable [phone] Franco, Arianne A MD Unavailable [phone] Encounter Details Date Type Department Care Team (Late st Contact Info) Description 08/12/2021 Procedure Pass [address] [place] [address] Social History Tobacco Use Types Packs/Day Years [...] Description 03/08/2025 12:45 PM EST Office Visit [facility] [place] [address] [place] [address] 03/08/2025 12:45 PM EST Procedure visit [facility] [place] [address] [place] [address] Anupam Montero MD [address] [place] [address] [email or web address] 04/20/2025 1:00 PM EST Procedure visit [facility] [place] [address] [place] [address] 04/20/2025 1:15 PM EST Office Visit [facility] [place] [address] [place] [address] Anupam Montero MD [address] [place] [address] [email or web address] documented as of this encounter Visit Diagnoses Not on filedocumented in this encounter Additional Health Concerns Infection Onset Date Last Indicated Resolved Time CoV-Risk Comment:Per Ambulatory Triage Form 10/24/2021 10/24/202111/04 1:22 AM EDT Assessment Noted Time PHQ-2 Depression Total Score: 0 10/22/19 22 9:21 AM EDT documented as of this encounter Care Teams Senior Maintenance Technician Relationship Specialty Start Date End Date Arianne Franco MD [address] [place] [address] [email or web address] PCP - General 12/11/16 Arianne Franco MD [address] [place] [address] Historical LMR Provider 12/13/16 Arianne Franco MD [address] [place] [address] [email or web address] Insurance Assigned Provider 05/30/23 documented as of this encounter Additional Source Comments The information contained in this document represents components of the legal health record. It is not the complete legal health record.[facility]
--- OUTSIDE RECORDS SUMMARY | 2024-11-22 15:49 | XMS_ITS | Encounter Summary ---
Author Organization [facility] Address [address] [place] [address] [place] [address] Phone Care Team Providers Care Bulk Tank Driver Name Role Phone Franco, Arianne A MD Primary Care Provider [phone] Franco, Arianne A MD Unavailable [phone] Franco, Arianne A MD Unavailable [phone] Franco, Arianne A MD Unavailable [phone] Encounter Details Date Type Department Care Team (Late st Contact Info) Description 08/17/2017 Ancillary Orders [facility],Outside [facility] [place] [address] [place], [place] [id number] System, Provider Not In, [place] [address] Social History Tobacco Use Types Packs/Day Years [...] Office Visit [facility] - [address] [place] [address] 03/08/2025 12:45 PM EST Procedure visit [facility] [place] [address] [place] [address] Anupam Montero MD [address] [place] [address] [email or web address] 04/20/2025 1:00 PM EST Procedure visit [facility] [place] [address] [place] [address] 04/20/2025 1:15 PM EST Office Visit [facility] [place] [address] [place] [address] Anupam Montero MD [address] [place] [address] [email or web address] documented as of this encounter Results * Mammogram Outside (No Interpretation) (10/11/2013 12:15 AM EDT) Narrative SYSTEMGENERATED, DOCUMENTATION - 08/17/2017 1:16 PM EDT This study is for PACS [...] documented as of this encounter Care Teams Bulk Tank Driver Relationship Specialty Start Date End Date Arianen Franco MD [address] [place] [address] [email or web address] PCP - General 12/11/16 Arianne Franco MD [address] [place] [address] [email or web address] Historical LMR Provider 12/13/16 Arianne Franco MD [address] [place] [address] [email or web address] Insurance Assigned Provider 05/29/18 Arianne Franco MD [address] [place] [address] [email or web address] Insurance Assigned Provider 05/30/23 documented as of this encounter Additional Source Comments The information contained in this document represents components of the legal health record. It is not the complete legal health record.[facility]
--- OUTSIDE RECORDS SUMMARY | 2024-11-22 15:49 | XMS_ITS | Encounter Summary ---
Author Organization [facility] Address [address] [facility] [address] [place] [address] Phone Care Team Providers Care Corporate Claims Examiner Name Role Phone Franco, Arianne A MD Primary Care Provider [phone] Franco, Arianne A MD Unavailable [phone] Franco, Arianne A MD Unavailable [phone] Encounter Details Date Type Department Care Team (Late st Contact Info) Description 10/25/2019 Procedure Pass [address] [place] [address] Social History Tobacco Use Types Packs/Day Years [...] 12:45 PM EST Office Visit [facility] [place] [address] [place] [address] 03/08/2025 12:45 PM EST Procedure visit [facility] [place] [address] [place] [address] Anupam Montero MD [address] [place] [address] [email or web address] 04/20/2025 1:00 PM EST Procedure visit [facility] [place] [address] [place] [address] 04/20/2025 1:15 PM EST Office Visit [facility] [place] [address] [place] [address] Anupam Montero MD [address] [place] [address] [email or web address] documented as of this encounter Visit Diagnoses Not on filedocumented in this encounter Additional Health Concerns Infection Onset Date Last Indicated Resolved Time CoV-Risk Comment:Per Ambulatory Triage Form 10/24/2021 10/24/202111/04 1:22 AM EDT Assessment Noted Time PHQ-2 Depression Total Score: 0 09/01/19 9:57 AM EDT documented as of this encounter Care Teams Corporate Claims Examiner Relationship Specialty Start Date End Date Arianne Franco MD [address] [place] [address] [email or web address] PCP - General 12/11/16 Arianne Franco MD [address] [place] [address] [email or web address] Historical LMR Provider 12/13/16 Arianne Franco MD [address] [place] [address] [email or web address] Insurance Assigned Provider 05/30/23 documented as of this encounter Additional Source Comments The information contained in this document represents components of the legal health record. It is not the complete legal health record.[facility]
--- OUTSIDE RECORDS SUMMARY | 2024-11-22 15:50 | XMS_ITS | Encounter Summary ---
Author Organization [facility] Address [address] [facility] [address] [place] [address] Phone Care Team Providers Care Referral Clerk Name Role Phone Salvador, Arianne A MD Primary Care Provider [phone] Salvador, Arianne A MD Unavailable [phone] Salvador, Arianne A Unavailable [phone] Encounter Details Date Type Department Care Team (Late st Contact Info) Description 02/23/2024 Ancillary Orders [address] [place] [address] Arianne Franco MD [address] [place] [address], 2nd [place] [address] [email or web address] Visit for screening mammogram Social History Tobacco Use Types Packs/Day [...] your housing situation today? I have chon burgos 12/22/2022 How many times have you move [...] as food, clothing, or medical care? No 11/22/2023 In the past 12 months have y ou been in a relationship with a person who hurts, threatens, or tries to control you? No 11/22/2023 Are you denied basic needs s uch as food, clothing, or medical care? No 11/22/2023 In the past 12 months have y ou been in a relationship with a person who hurts, threatens, or tries to control you? No 11/22/2023 Comments No Sex and Gender Information Value [...] 12:45 PM EST Office Visit [facility] - [address] [place] [address] 03/08/2025 12:45 PM EST Procedure visit [facility] [place] [address] [place] [address] Anupam Montero MD [address] [place] [address] [email or web address] 04/20/2025 1:00 PM EST Procedure visit [facility] [place] [address] [place] [address] 04/20/2025 1:15 PM EST Office Visit [facility] [place] [address] [place] [address] Anupam Montero MD [address] [place] [address] [email or web address] documented as of this encounter Results * BI MAMMOGRAM SCREENING WITH TOMOSYNTHESIS WITH CAD (LEFT) (02/23/2024 12:00 PM EST) Anatomical Region Laterality Modality Breast Left, Breast Bilateral Left Ma mmography 02/25/2024 11:5 1 AM EST Impressions 02/25/2024 11:55 AM EST No mammographic evidence of malignancy in the left breast. Annual screening mammography is recommended. BI-RADS 1 NEGATIVE The patient will be notified of the results and recommendations. Narrative 02/25/2024 11:55 AM EST BI MAMMOGRAM SCREENING WITH TOMOSYNTHESIS WITH CAD (LEFT) Additional patient information: Screening. Status post right mastectomy. COMPARISON: Comparison is made with relevant prior imaging. Breast composition: There are scattered areas of fibroglandular density. FINDINGS: Due to limited mobility of the shoulder mammographic images are somewhat limited. No abnormal masses, suspicious calcifications, or other significant findings are identified mammographically in the left breast. Procedure Note Dhruv Rizo MD - 02/25/2024 BI MAMMOGRAM SCREENING WITH TOMOSYNTHESIS WITH CAD (LEFT) Additional patient information: Screening. Status post right mastectomy. COMPARISON: Comparison is made with relevant prior imaging. Breast composition: There are scattered areas of fibroglandular density. FINDINGS: Due to limited mobility of the shoulder mammographic images are somewhatlimited. No abnormal masses, suspicious calcifications, or other significantfindings are identified mammographically in the left breast. IMPRESSION: No mammographic evidence of malignancy in the left breast. Annual screening mammography is recommended. BI-RADS 1 NEGATIVE The patient will be notified of the results and recommendations. us Arianne Franco MD IMG MG EXAMS Final Result documented in this encounter Visit Diagnoses Diagnosis Visit for screening mammogram Visit for screening mammogram documented in this encounter Additional Health Concerns Assessment Noted Time PHQ-2 Depression Total Score: 0 12/23/19 23 1:42 PM EDT documented as of this encounter Care Teams Referral Clerk Relationship Specialty Start Date End Date Arianne Franco MD [address] [place] [address] [email or web address] PCP - General 12/11/16 Arianne Franco MD [address] [place] [address] Historical LMR Provider 12/13/16 Arianne Franco MD [address] [place] [address] Insurance Assigned Provider 05/30/23 documented as of this encounter Additional Source Comments The information contained in this document represents components of the legal health record. It is not the complete legal health record.[facility]
--- OUTSIDE RECORDS SUMMARY | 2024-11-22 15:50 | XMS_ITS | Encounter Summary ---
Author Organization [facility] Address [address] [place] [address] [place] [address] Phone Care Team Providers Care Coin Collector Name Role Phone Franco, Arianne A MD Primary Care Provider [phone] Franco, Arianne A MD Unavailable [phone] Franco, Arianne A MD Unavailable [phone] Franco, Arianne A MD Unavailable [phone] Encounter Details Date Type Department Care Team (Late st Contact Info) Description 08/17/2017 Ancillary Orders [facility] [address] [place], [place] [id number] System, Provider [place] In, [place] [address] Social History Tobacco Use Types Packs/Day Years [...] Description 03/08/2025 12:45 PM EST Office Visit [facility] - [address] [place] [address] 03/08/2025 12:45 PM EST Procedure visit [facility] [place] [address] [place] [address] Anupam Montero MD [address] [place] [address] [email or web address] 04/20/2025 1:00 PM EST Procedure visit [facility] [place] [address] [place] [address] 04/20/2025 1:15 PM EST Office Visit [facility] [place] [address] [place] [address] Anupam Montero MD [address] [place] [address] [email or web address] documented as of this encounter Results * [...] documented as of this encounter Care Teams Coin Collector Relationship Specialty Start Date End Date Arianne Franco MD [address] [place] [address] [email or web address] PCP - General 12/11/16 Arianne Franco MD [address] [place] [address] [email or web address] Historical LMR Provider 12/13/16 Arianne Franco MD [address] [place] [address] [email or web address] Insurance Assigned Provider 05/29/18 Arianne Franco MD [address] [place] [address] [email or web address] Insurance Assigned Provider 05/30/23 documented as of this encounter Additional Source Comments The information contained in this document represents components of the legal health record. It is not the complete legal health record.[facility]
--- OUTSIDE RECORDS SUMMARY | 2024-11-22 15:50 | XMS_ITS | Encounter Summary ---
Author Organization [facility] Address [address] [place] [address] [place] [address] Phone Care Team Providers Care Conservation Biology Professor Name Role Phone Franco, Arianne A MD Primary Care Provider [phone] Franco, Arianne A MD Unavailable Franco, Arianne A MD Unavailable [phone] Franco, Arianne A MD Unavailable [phone] Encounter Details Date Type Department Care Team (Late st Contact Info) Description 08/17/2017 Ancillary Orders [facility],Outside [facility] 30 [place], [place] [id number] System, Provider [place] In, [place] [address] Social History Tobacco Use Types Packs/Day Years [...] 12:45 PM EST Office Visit [facility] - [address] [place] [address] 03/08/2025 12:45 PM EST Procedure visit [facility] [place] [address] [place] [address] Anupam Montero MD [address] [place] [address] [email or web address] 04/20/2025 1:00 PM EST Procedure visit [facility] [place] [address] [place] [address] 04/20/2025 1:15 PM EST Office Visit [facility] [place] [address] [place] [address] Anupam Montero MD [address] [place] [address] [email or web address] documented as of this encounter Results * Mammogram Outside (No Interpretation) (10/15/2015 12:00 AM EDT) Narrative SYSTEMGENERATED, DOCUMENTATION - 08/17/2017 12:52 PM EDT This study is for PACS [...] documented as of this encounter Care Teams Conservation Biology Professor Relationship Specialty Start Date End Date Arianne Franco MD [address] [place] [address] [email or web address] PCP - General 12/11/16 Arianne Franco MD [address] [place] [address] [email or web address] Historical LMR Provider 12/13/16 Arianne Franco MD [address] [place] [address] [email or web address] Insurance Assigned Provider 05/29/18 Arianne Franco MD [address] [place] [address] [email or web address] Insurance Assigned Provider 05/30/23 documented as of this encounter Additional Source Comments The information contained in this document represents components of the legal health record. It is not the complete legal health record.[facility]
--- OUTSIDE RECORDS SUMMARY | 2024-11-22 15:50 | XMS_ITS | Encounter Summary ---
Author Organization [facility] Address [address] [place] [address] [place] [address] Phone Care Team Providers Care Production Department Supervisor Name Role Phone Franco, Arianne A MD Primary Care Provider [phone] Franco, Arianne A MD Unavailable [phone] Franco, Arianne A MD Unavailable [phone] Franco, Arianne A MD Unavailable [phone] Encounter Details Date Type Department Care Team (Late st Contact Info) Description 08/17/2017 Ancillary Orders [facility],Outside [facility] 30 [place], [place] [phone] System, Provider [place] In, [place] [address] Social History Tobacco Use Types Packs/Day Years [...] 12:45 PM EST Office Visit [facility] - [address] [place] [address] 03/08/2025 12:45 PM EST Procedure visit [facility] [place] [address] [place] [address] Anupam Montero MD [address] [place] [address] [email or web address] 04/20/2025 1:00 PM EST Procedure visit [facility] [place] [address] [place] [address] 04/20/2025 1:15 PM EST Office Visit [facility] [place] [address] [place] [address] Anupam Montero MD [address] [place] [address] [email or web address] documented as of this encounter Results * [...] documented as of this encounter Care Teams Production Department Supervisor Relationship Specialty Start Date End Date Arianne Franco MD [address] [place] [address] [email or web address] PCP - General 12/11/16 Arianne Franco MD [address] [place] [address] [email or web address] Historical LMR Provider 12/13/16 Arianne Franco MD [address] [place] [address] [email or web address] Insurance Assigned Provider 05/29/18 Arianne Franco MD [address] [place] [address] [email or web address] Insurance Assigned Provider 05/30/23 documented as of this encounter Additional Source Comments The information contained in this document represents components of the legal health record. It is not the complete legal health record.[facility]
--- OUTSIDE RECORDS SUMMARY | 2024-11-22 15:50 | XMS_ITS | Encounter Summary ---
Author Organization [facility] Address [address] [facility] [address] [place] [address] Phone Care Team Providers Care Rater Associate Name Role Phone Franco, Arianne A MD Primary Care Provider [phone] Franco, Arianne A MD Unavailable [phone] Franco, Arianne A MD Unavailable [phone] Franco, Arianne A MD Unavailable Encounter Details Date Type Department Care Team (Late st Contact Info) Description 10/28/2017 Ancillary Orders [facility] [address] [place] [address] [place] [address] Arianne Franco MD [address] [place] [address], 2nd [place] [address] [email or web address] Encounter for screening mammogram for malignant neoplasm of breast Social History Tobacco Use Types Packs/Day Years [...] Description 03/08/2025 12:45 PM EST Office Visit [facility] [place] [address] [place] [address] 03/08/2025 12:45 PM EST Procedure visit [facility] [place] [address] [place] [address] Anupam Montero MD [address] [place] [address] [email or web address] 04/20/2025 1:00 PM EST Procedure visit [facility] [place] [address] [place] [address] 04/20/2025 1:15 PM EST Office Visit [facility] [address] [place] [address] Anupam Montero MD [address] [place] [address] [email or web address] documented as of this encounter Results * BI MAMMOGRAM SCREENING WITH TOMOSYNTHESIS WITH CAD (LEFT) (10/28/2017 11:28 AM EDT) Anatomical Region Laterality Modality Breast Left, Breast Bilateral Left Ma mmography 10/28/2017 4:10 PM EDT Impressions 10/28/2017 4:14 PM EDT No mammographic signs of malignancy. Annual screening is recommended. BI-RADS CATEGORY: 1 - Negative. DENSITY: There are scattered fibroglandular densities. POS - CDHMAMA Narrative 10/28/2017 4:14 PM EDT Bilateral mammography is performed in conjunction with computed aided detection. 3-D tomography along with 2-D C view imaging was also performed. Comparison made to previous dated as far back as 09/10/2009 and as recent as 10/23/2016. The patient is status-post right mastectomy in 2005 for breast carcinoma. No suspicious masses, areas of architectural distortion or suspicious microcalcifications. Procedure Note Dhruv Jalloh MD - 10/28/2017 Bilateral mammography is performed in conjunction with computed aideddetection. 3-D tomography along with 2-D C view imaging was alsoperformed. Comparison made to previous dated as far back as 09/10/2009 andas recent as 10/23/2016. The patient is status-post right mastectomy in 2004 for breastcarcinoma. No suspicious masses, areas of architectural distortion or suspiciousmicrocalcifications. IMPRESSION: No mammographic signs of malignancy. Annual screening is recommended. BI-RADS CATEGORY: 1 - Negative. DENSITY: There are scattered fibroglandular densities. POS - CDHMAMA us Arianne Franco MD IMG MG EXAMS Final Result documented in this encounter Visit Diagnoses Diagnosis Encounter for screening mammogram for malignant neoplasm of breast Encounter for screening mammogram for malignant neoplasm of breast documented in this encounter Additional Health Concerns Infection Onset Date Last Indicated Resolved Time CoV-Risk Comment:Per Ambulatory Triage Form 10/24/2021 10/24/202111/04 1:22 AM EDT Assessment Noted Time PHQ-2 Depression Total Score: 0 02/27/19 18 1:24 PM EST documented as of this encounter Care Teams Rater Associate Relationship Specialty Start Date End Date Arianne Franco MD [address] [place] [address] PCP - General 12/11/16 Arianne Franco MD [address] [place] [address] Historical LMR Provider 12/13/16 Arianne Franco MD [address] [place] [address] Insurance Assigned Provider 05/29/18 Arianne Franco MD [address] [place] [address], 2[address] [place] [address] [email or web address] Insurance Assigned Provider 05/30/23 documented as of this encounter Additional Source Comments The information contained in this document represents components of the legal health record. It is not the complete legal health record.[facility]
--- OUTSIDE RECORDS SUMMARY | 2024-11-22 15:50 | XMS_ITS | Encounter Summary ---
Author Organization [facility] Address [address] [place] [address] [place] [address] Phone Care Team Providers Care Optical Manager Name Role Phone Franco, Arianne A MD Primary Care Provider [phone] Franco, Arianne A MD Unavailable [phone] Franco, Arianne A MD Unavailable [phone] Franco, Arianne A MD Unavailable [phone] Encounter Details Date Type Department Care Team (Late st Contact Info) Description 08/17/2017 Ancillary Orders [facility],Outside [facility] 30 [place], [place] [id number] System, Provider [place] In, [place] [address] Social History Tobacco Use Types Packs/Day Years [...] Visit [facility] - [address] [place] [address] 03/08/2025 12:45 PM EST Procedure visit [facility] [place] [address] [place] [address] Anupam Montero MD [address] [place] [address] [email or web address] 04/20/2025 1:00 PM EST Procedure visit [facility] [place] [address] [place] [address] 04/20/2025 1:15 PM EST Office Visit [facility] [place] [address] [place] [address] Anupam Montero MD [address] [place] [address] [email or web address] documented as of this encounter Results * [...] documented as of this encounter Care Teams Optical Manager Relationship Specialty Start Date End Date Arianne Franco MD [address] [place] [address] [email or web address] PCP - General 12/11/16 Arianne Franco MD [address] [place] [address] [email or web address] Historical LMR Provider 12/13/16 Arianne Franco MD [address] [place] [address] [email or web address] Insurance Assigned Provider 05/29/18 Arianne Franco MD [address] [place] [address] [email or web address] Insurance Assigned Provider 05/30/23 documented as of this encounter Additional Source Comments The information contained in this document represents components of the legal health record. It is not the complete legal health record.[facility]
--- OUTSIDE RECORDS SUMMARY | 2024-11-22 15:50 | XMS_ITS | Encounter Summary ---
Author Organization [facility] Address [address] [facility] [address] [place] [address] Phone Care Team Providers Care Api Product Manager Name Role Phone Franco, Arianne A MD Primary Care Provider Franco, Arianne A MD Unavailable [phone] Franco, Arianne A MD Unavailable [phone] Encounter Details Date Type Department Care Team (Late st Contact Info) Description 10/22/2023 Procedure [facility] - [address] [place] [address] Social History Tobacco Use Types Packs/Day Years [...] Description 03/08/2025 12:45 PM EST Office Visit [facility] [address] [place] [address] 03/08/2025 12:45 PM EST Procedure visit [facility] [address] [place] [address] Anupam Montero MD [address] [place] [address] [email or web address] 04/20/2025 1:00 PM EST Procedure visit [facility] [place] [address] [place] [address] 04/20/2025 1:15 PM EST Office Visit [facility] [place] [address] [place] [address] Anupam Montero MD [address] [place] [address] [email or web address] documented as of this encounter Visit Diagnoses Not on filedocumented in this encounter Additional Health Concerns Assessment Noted Time PHQ-2 Depression Total Score: 0 12/23/19 23 1:42 PM EDT documented as of this encounter Care Teams Api Product Manager Relationship Specialty Start Date End Date Arianne Franco MD [address] [place] [address] PCP - General 12/11/16 Arianne Franco MD [address] [place] [address] Historical LMR Provider 12/13/16 Arianne Franco MD [address] [place] [address] Insurance Assigned Provider 05/30/23 documented as of this encounter Additional Source Comments The information contained in this document represents components of the legal health record. It is not the complete legal health record.[facility]
--- OUTSIDE RECORDS SUMMARY | 2024-11-22 15:50 | XMS_ITS | Encounter Summary ---
Author Organization [facility] Address [address] [place] [address] [place] [address] Phone Care Team Providers Care Acid Adjuster Name Role Phone Franco, Arianne A MD Primary Care Provider [phone] Franco, Airanne A MD Unavailable [phone] Franco, Arianne A MD Unavailable [phone] Franco, Arianne A MD Unavailable [phone] Encounter Details Date Type Department Care Team (Late st Contact Info) Description 08/17/2017 Ancillary Orders [facility],Outside [facility] 30 [place], [place] [phone] System, Provider [place] In, [place] [address] Social History Tobacco Use Types Packs/Day Years [...] 12:45 PM EST Office Visit [facility] - [address] [place] [address] 03/08/2025 12:45 PM EST Procedure visit [facility] [place] [address] [place] [address] Anupam Montero MD [address] [place] [address] [email or web address] 04/20/2025 1:00 PM EST Procedure visit [facility] [place] [address] [place] [address] 04/20/2025 1:15 PM EST Office Visit [facility] [place] [address] [place] [address] Anupam Montero MD [address] [place] [address] [email or web address] documented as of this encounter Results * [...] documented as of this encounter Care Teams Acid Adjuster Relationship Specialty Start Date End Date Arianne Franco MD [address] [place] [address] [email or web address] PCP - General 12/11/16 Arianne Franco MD [address] [place] [address] [email or web address] Historical LMR Provider 12/13/16 Arianne Franco MD [address] [place] [address] [email or web address] Insurance Assigned Provider 05/29/18 Arianne Franco MD [address] [place] [address] [email or web address] Insurance Assigned Provider 05/30/23 documented as of this encounter Additional Source Comments The information contained in this document represents components of the legal health record. It is not the complete legal health record.[facility]
--- OUTSIDE RECORDS SUMMARY | 2024-11-22 15:50 | XMS_ITS | Encounter Summary ---
Author Organization [facility] Address [address] [place] [address] [place] [address] Phone Care Team Providers Care Marketing Officer Name Role Phone Franco, Arianne A MD Primary Care Provider [phone] Franco, Arianne A MD Unavailable Franco, Arianne A MD Unavailable [phone] Franco, Arianne A MD Unavailable [phone] Encounter Details Date Type Department Care Team (Late st Contact Info) Description 08/17/2017 Ancillary Orders [facility],Outside [facility] [address] [place], [place] [id number] System, Provider [place] In, [place] [address] Social History Tobacco Use Types Packs/Day Years [...] 03/08/2025 12:45 PM EST Office Visit [facility] - [address] [place] [address] 03/08/2025 12:45 PM EST Procedure visit [facility] [place] [address] [place] [address] Anupam Montero MD [address] [place] [address] [email or web address] 04/20/2025 1:00 PM EST Procedure visit [facility] [place] [address] [place] [address] 04/20/2025 1:15 PM EST Office Visit [facility] [place] [address] [place] [address] Anupam Montero MD [address] [place] [address] [email or web address] documented as of this encounter Results * Mammogram Outside (No Interpretation) (10/11/2013 12:00 AM EDT) Narrative SYSTEMGENERATED, DOCUMENTATION - 08/17/2017 1:15 PM EDT This study is for PACS [...] documented as of this encounter Care Teams Marketing Officer Relationship Specialty Start Date End Date Arianne Franco MD [address] [place] [address] [email or web address] PCP - General 12/11/16 Arianne Franco MD [address] [place] [address] [email or web address] Historical LMR Provider 12/13/16 Arianne Franco MD [address] [place] [address] [email or web address] Insurance Assigned Provider 05/29/18 Arianne Franco MD [address] [place] [address] [email or web address] Insurance Assigned Provider 05/30/23 documented as of this encounter Additional Source Comments The information contained in this document represents components of the legal health record. It is not the complete legal health record.[facility]
--- OUTSIDE RECORDS SUMMARY | 2024-11-22 15:50 | XMS_ITS | Encounter Summary ---
Author Organization [facility] Address [address] [place] [address] Phone Care Team Providers Care Cowlman Name Role Phone Franco, Arianne A MD Primary Care Provider [phone] Franco, Arianne A MD Unavailable [phone] Franco, Arianne A MD Unavailable [phone] Encounter Details Date Type Department Care Team (Late Contact Info) Description 08/12/2021 Transcribe Orders Virtual Department [address] [place] [address] Arianne Franco MD [address] [facility], 2nd [place] [address] [email or web address] Breast screening (Primary Dx) Social History Tobacco [...] 12:45 PM EST Office Visit [facility] - [address] [place] [address] 03/08/2025 12:45 PM EST Procedure visit [facility] [place] [address] [place] [address] Anupam Montero MD [address] [place] [address] [email or web address] 04/20/2025 1:00 PM EST Procedure visit [facility] [address] [place] [address] 04/20/2025 1:15 PM EST Office Visit [facility] [address] [place] [address] Anupam Montero MD [address] [place] [address] [email or web address] documented as of this encounter Results * BI MAMMOGRAM SCREENING WITH TOMOSYNTHESIS WITH CAD (LEFT) (11/13/2021 11:20 AM EDT) Anatomical Region Laterality Modality Breast Left, Breast Bilateral Left Ma mmography 11/13/2021 6:40 PM EDT Impressions 11/13/2021 6:46 PM EDT LEFT BREAST: Negative, no specific mammographic evidence of malignancy. Normal interval follow-up is recommended in 12 months. BI-RADS: BI-RADS CATEGORY: 1 - Negative. DENSITY: There are scattered fibroglandular densities. Narrative 11/13/2021 6:46 PM EDT STUDY: Unilateral left screening mammography with tomosynthesis and CAD History: Right mastectomy for malignancy in December 2004 TECHNIQUE: Unilateral left full-field digital screening mammography is obtained and read in conjunction with computer-aided detection. Tomosynthesis as well as 2-D C view imaging were obtained. COMPARISON: Comparison made to multiple prior, most recent November 08, 2020, and most remote September 10, 2009. BREAST COMPOSITION: There are scattered areas of fibroglandular density LEFT BREAST: No significant masses, suspicious calcifications or other abnormalities are seen. Procedure Note Ghislaine Sheffield MD - 11/13/2021 STUDY: Unilateral left screening mammography with tomosynthesis and CAD History: Right mastectomy for malignancy in December 2004 TECHNIQUE: Unilateral left full-field digital screening mammography isobtained and read in conjunction with computer-aided detection.Tomosynthesis as well as 2-D C view imaging were obtained. COMPARISON: Comparison made to multiple prior, most recent October, and most remote September 10, 2009. BREAST COMPOSITION: There are scattered areas of fibroglandulardensity LEFT BREAST: No significant masses, suspicious calcifications or otherabnormalities are seen. IMPRESSION: LEFT BREAST: Negative, no specific mammographic evidence of malignancy.Normal interval follow-up is recommended in 12 months. [...] Time PHQ-2 Depression Total Score: 0 07/30/19 7:54 PM EDT documented as of this encounter Care Teams Cowlman Relationship Specialty Start Date End Date Arianne Franco MD [address] [place] [address], [address] [place] [address] PCP - General 12/11/16 Arianne Franco MD [address] [place] [address], [address] [place] [address] Historical LMR Provider 12/13/16 Arianne Franco MD [address] [place] [address], 2[address] [place] [address] [email or web address] Insurance Assigned Provider 05/30/23 documented as of this encounter Additional Source Comments The information contained in this document represents components of the legal health record. It is not the complete legal health record.[facility]
--- OUTSIDE RECORDS SUMMARY | 2024-11-22 15:50 | XMS_ITS | Encounter Summary ---
Author Organization [facility] Address [address] [place] [address] [place] [address] Phone Care Team Providers Care Community Nutrition Educator Name Role Phone Franco, Arianne A MD Primary Care Provider [phone] Franco, Arianne A MD Unavailable [phone] Franco, Arianne A MD Unavailable [phone] Franco, Arianne A MD Unavailable [phone] Encounter Details Date Type Department Care Team (Late st Contact Info) Description 08/17/2017 Ancillary Orders [facility],Outside [facility] [address] [place], [place] [id number] System, Provider [place] In, [place] [address] Social History Tobacco Use Types Packs/Day Years [...] Visit [facility] - [address] [place] [address] 03/08/2025 12:45 PM EST Procedure visit [facility] [place] [address] [place] [address] Anupam Montero MD [address] [place] [address] [email or web address] 04/20/2025 1:00 PM EST Procedure visit [facility] [place] [address] [place] [address] 04/20/2025 1:15 PM EST Office Visit [facility] [place] [address] [place] [address] Anupam Montero MD [address] [place] [address] [email or web address] documented as of this encounter Results * Mammogram Outside (No Interpretation) (10/23/2016 12:00 [...] documented as of this encounter Care Teams Community Nutrition Educator Relationship Specialty Start Date End Date Arianne Franco MD [address] [place] [address] [email or web address] PCP - General 12/11/16 Arianne Franco MD [address] [place] [address] [email or web address] Historical LMR Provider 12/13/16 Arianne Franco MD [address] [place] [address] [email or web address] Insurance Assigned Provider 05/29/18 Arianne Franco MD [address] [place] [address] [email or web address] Insurance Assigned Provider 05/30/23 documented as of this encounter Additional Source Comments The information contained in this document represents components of the legal health record. It is not the complete legal health record.[facility]
--- OUTSIDE RECORDS SUMMARY | 2024-11-22 15:50 | XMS_ITS | Encounter Summary ---
Author Organization [facility] Address [address] [facility] [address] [place] [address] Phone Care Team Providers Care Liquor Establishment Manager Name Role Phone Franco, Arianne A MD Primary Care Provider Franco, Arianne A MD Unavailable [phone] Franco, Arianne A MD Unavailable [phone] Encounter Details Date Type Department Care Team (Late st Contact Info) Description 08/08/2020 Procedure Pass [address] [place] [id number] Social History Tobacco Use Types Packs/Day Years [...] Description 03/08/2025 12:45 PM EST Office Visit [facility] [address] [place] [address] 03/08/2025 12:45 PM EST Procedure visit [facility] [address] [place] [address] Anupam Montero MD [address] [place] [address] [email or web address] 04/20/2025 1:00 PM EST Procedure visit [facility] [address] [place] [address] 04/20/2025 1:15 PM EST Office Visit [facility] [address] [place] [address] Anupam Montero MD [address] [place] [address] [email or web address] documented as of this encounter Visit Diagnoses Not on filedocumented in this encounter Additional Health Concerns Infection Onset Date Last Indicated Resolved Time CoV-Risk Comment:Per Ambulatory Triage Form 10/24/2021 10/24/202111/04 1:22 AM EDT Assessment Noted Time PHQ-2 Depression Total Score: 0 07/30/19 21 7:54 PM EDT documented as of this encounter Care Teams Liquor Establishment Manager Relationship Specialty Start Date End Date Arianne Franco MD [address] [place] [address] [email or web address] PCP - General 12/11/16 Arianne Franco MD [address] [place] [address] Historical LMR Provider 12/13/16 Arianne Franco MD [address] [place] [address] [email or web address] Insurance Assigned Provider 05/30/23 documented as of this encounter Additional Source Comments The information contained in this document represents components of the legal health record. It is not the complete legal health record.[facility]
--- OUTSIDE RECORDS SUMMARY | 2024-11-22 15:50 | XMS_ITS | Encounter Summary ---
Author Organization [facility] Address [address] [place] [address] [place] [address] Phone Care Team Providers Care Press Machine Operator Name Role Phone Franco, Arianne A MD Primary Care Provider [phone] Franco, Arianne A MD Unavailable [phone] Franco, Arianne A MD Unavailable [phone] Franco, Arianne A MD Unavailable [phone] Encounter Details Date Type Department Care Team (Late st Contact Info) Description 08/17/2017 Ancillary Orders [facility],Outside [facility] [address] [place], [place] [id number] System, Provider [place] In, [place] [address] Social History Tobacco Use Types Packs/Day Years [...] [facility] Visit [facility] [address] [place] [address] 03/08/2025 12:45 PM EST Procedure visit [facility] [address] [place] [address] Anupam Montero MD [address] [place] [address] [email or web address] 04/20/2025 1:00 PM EST Procedure visit [facility] [address] [place] [address] 04/20/2025 1:15 PM EST Office Visit [facility] [address] [place] [address] Anupam Montero MD [address] [place] [address] [email or web address] documented as of this encounter Results * Mammogram Outside (No Interpretation) (10/12/2014 12:00 AM EDT) Narrative SYSTEMGENERATED, DOCUMENTATION - 08/17/2017 12:59 PM EDT This study is for PACS [...] documented as of this encounter Care Teams Press Machine Operator Relationship Specialty Start Date End Date Arianne Franco MD [address] [place] [address] [email or web address] PCP - General 12/11/16 Arianne Franco MD [address] [place] [address] [email or web address] Historical LMR Provider 12/13/16 Arianne Franco MD [address] [place] [address] [email or web address] Insurance Assigned Provider 05/29/18 Arianne Franco MD [address] [place] [address] [email or web address] Insurance Assigned Provider 05/30/23 documented as of this encounter Additional Source Comments The information contained in this document represents components of the legal health record. It is not the complete legal health record.[facility]
--- OUTSIDE RECORDS SUMMARY | 2024-11-22 15:50 | XMS_ITS | Encounter Summary ---
Author Organization [facility] Address [address] [place] [address] Phone Care Team Providers Care Design Engineering Manager Name Role Phone Franco, Arianne A MD Primary Care Provider [phone] Franco, Arianne A MD Unavailable [phone] Franco, Arianne A MD Unavailable [phone] Franco, Arianne A MD Unavailable Encounter Details Date Type Department Care Team (Late st Contact Info) Description 06/02/2018 Ancillary Orders [facility] [address] [place] [address] Arianne Franco MD [address] [place] [address], 2[address] [place] [address] [email or web address] Social History Tobacco Use Types Packs/Day Years [...] Description 03/08/2025 12:45 PM EST Office Visit [place] [address] [place] [address] 03/08/2025 12:45 PM EST Procedure visit [facility] [address] [place] [address] Anupam Montero MD [address] [place] [address] [email or web address] 04/20/2025 1:00 PM EST Procedure visit [facility] [address] [place] [address] 04/20/2025 1:15 PM EST Office Visit [facility] [address] [place] [address] Anupam Montero MD [address] [place] [address] [email or web address] documented as of this encounter Visit Diagnoses Not on filedocumented in this encounter Additional Health Concerns Infection Onset Date Last Indicated Resolved Time CoV-Risk Comment:Per Ambulatory Triage Form 10/24/2021 10/24/202111/04 1:22 AM EDT Assessment Noted Time PHQ-2 Depression Total Score: 0 02/27/19 18 1:24 PM EST documented as of this encounter Care Teams Design Engineering Manager Relationship Specialty Start Date End Date Arianne Franco MD [address] [place] [address] [email or web address] PCP - General 12/11/16 Arianne Franco MD [address] [place] [address] [email or web address] Historical LMR Provider 12/13/16 Arianne Franco MD [address] [place] [address] [email or web address] Insurance Assigned Provider 05/29/18 Arianne Franco MD [address] [place] [address], [address] [place] [address] [email or web address] Insurance Assigned Provider 05/30/23 documented as of this encounter Additional Source Comments The information contained in this document represents components of the legal health record. It is not the complete legal health record.[facility]
== END 2024-11-22 15:00 | disposition home or self-care (01) ==
LOC: HO.HOS 14:24
PROVIDERS: PCP Internal Medicine
DX: G56.02 Carpal tunnel syndrome, left upper limb (principal)
CPT/HCPCS: 99024

== ENCOUNTER → 2024-11-22 14:24 | Outpatient (BNVA) | payer MEDICARE, OTHER, SELFPAY | PROVIDERS: PCP Internal Medicine | DX: Z48.02 Encounter for removal of sutures (principal); G56.02 Carpal tunnel syndrome, left upper limb | CPT/HCPCS: 99212 ==